=== PATIENT | male | born 1975 | race Native Hawaiian/Other Pacific Islander ===

== ENCOUNTER 2025-03-12 10:59 | Outpatient (AMB) | payer OTHER, MEDICAID, SELFPAY ==
--- NOTE | 2025-03-12 11:01 | A.OFFPC_ITS ---
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 to establish care Chiller Technician Required: No Allergies No Known Allergies (No Known Allergies*) Allergy (Verified 03/12/25 11:25) Medication List - Last Reconciled 03/12/25 by Migdalia Dorantes, [facility]- albuterol sulfate 90 mcg/actuation (Ventolin HFA) inhalation blood sugar diagnostic (Solar Censusuch Ultra Test strips) As directed blood-glucose meter (Solar Censusuch Ultra2 Meter) As directed famotidine 20 mg PO DAILY insulin aspart U-100 subcut insulin glargine-yfgn (Semglee (insulin glargine-yfgn) Pen) 19 units subcut DIRECTED lancets (RelayRidesTouch Delica Plus Lancet) As directed lisinopril 5 mg PO DAILY pen needle, diabetic As directed Tobacco use date assessed: 03/12/25 Dental Screening Dental Screen Date: 03/12/25 Did you have a dental visit in the last 12 months?: No Did you have a dental problem in the last 6 months where you did not have access to dental care?: No Was dental information given to patient?: Yes HPI HPI Comments History of Present Illness Details 49 y/o M with DM2 with complication, Cys tic Fibrosis, GERD, HTN, anemia, hypoalbuminemia, pancreatitis, hx of pna 10/2024 requiring intubation, Bacteremia (MSSA 10/2024), Obesity, MAC Surgery: R shoulder surgery Family hx: Mom and Dad ; Mom AK,DM; Dad etoh, DM. Children - none. Social: disabled; lives w/ brother. Drives. Health Maintenance: Colon referral to [facility] [place] today for first screening colon PSA ordered today Tdap admin today Specialists: Infectious disease, next visit 03/24/25 Pulm, CF [facility] Optho wears glasses, [facility]; 12/2024 reports negative retinopathy GI Podiatry Endo History of Present Illness - The patient is a 49-year-old male pres enting to establish care for management of multiple chronic conditions & for CPE - Records rec'd and reviewed from [facility] where he stayed after hospital admission in October 2024 for Hypoxia with intubation, pancreatitis and MSSA bacteremia. - Type 2 [facility]; managed with insulin. A1c today 6.5% Reports DM Eye exam negative 12/2024 - report requested; c/o severe peripheral neuropathy pain affecting BLE. - Cystic Fibrosis and MAC infection; sharan iting CF clinic referral; has appt w/ [facility] ID 03/24/25 . - GERD managed with famotidine. - Well-controlled hypertension on lisino pril. - History of pancreatitis, occassional R UQ pain. Due for colon. Will refer to GI for this. - Rash noted in strong area; - CF-related symptoms managed with Jonny emerson, no other current medications. - Obesity (BMI 34.3); affecting overall health. - Chronic back pain; rec'd inj in the [facility] from [facility]. Back cont to bother him, would like to see [facility] again. Social History - The patient lives with his brother and reports feeling safe at home. 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 - Drives independently despite condition -related limitations. - Current non-smoker, no alcohol or subs tance misuse reported. Health Maintenance - Colonoscopy referral planned as patien t is 49, past screening due. - Received tetanus vaccination during e visit. - Flu shot discussed, deferred until flu season towards the end of March. - Blood glucose management discussed wit h mention of better control (A1C improved to 6.5). - Potential need for diabetic socks was discussed in response to neuropathy. Review of Systems - Respiratory: Reports cough with white mucus production. - Neurological: Reports pain and tinglin g in feet; denies dizziness, manageable with massage. - Dermatological: Reports rash in the be tato area. - Musculoskeletal: Denies recent surgery except for shoulder procedure. - Cardiovascular: Reports irregularities in blood glucose levels. - Gastrointestinal: Reports GERD, no rec ent exacerbations. Physical Exam General: Well developed, well nourished, in no acute distress. Appears stated age. Head: Normocephalic, atraumatic. Eyes: Pupils are equal, round and reactive to light and accommodation. Conjunctivae are clear. Vision grossly normal. Ears: TMs clear AU, EACS WNL Nose: Patent, without discharge. Neck: Supple, no adenopathy or thyromegaly. Reports slight pain on swallowing. Breast: Edu on SBE Lungs: Dim throughout with ins/exp wheezes, occasional cough w/o distress Heart: Regular rate and rhythm. No murmurs, click, rubs or gallops are noted. Abdomen: Bowel sounds present in all quadrants. The abdomen is soft, nontender, with no masses or organomegaly noted. No hernias are noted. : Deferred. Reviewed VALARIE & recommendations Pulses: Peripheral pulses are equal and palpable bilaterally. Extremities: No clubbing, cyanosis nor edema is noted. Chronic vascular staining to ble, skin intact; abnormal monofilament and vibratory sensation bilat Neurologic: Gait and station normal. Cranial Nerves 2-12 intact. Motor strength grossly symmetrical and intact. No sensory loss. Balance normal. Skin: No rashes, ulcers, or lesions noted. Turgor is good. Skin color is good. Hair and nails are without abnormalities. Reports rash in strong area. Psych: Normal eye contact, affect and mood appropriate, and normal interactions. Patient is alert and appropriate to context. Results - Labs: Hemoglobin A1c recorded at 6.5; past readings over 10. - Tests: No diabetic retinopathy found p er recent eye examination. Discussion Notes During today's consultation, I discussed the multifaceted nature of the patient's ongoing health concerns, focusing on the management of chronic conditions including diabetes, cystic fibrosis, GERD, and hypertension. Emphasis was placed on improving diabetes control with an A1c goal of 6.0 or lower; start neuropathy management with oral gabapentin. The need for a colonoscopy was reviewed, given the patient's age and previous lack of screening. New referral [facility] for CF mgmt; continuation of infectious disease follow-up were also addressed. I provided anticipatory guidance regarding vaccinations and confirmed today's tetanus shot administration. The patient was encouraged to engage with the patient portal for efficient communication and better management of future healthcare interactions. Assessment and Plan 1. Type 2 Diabetes Mellitus with Complic ations - Monitor insulin response. - Refer for endocrinology review. - get dm eye exam report - refer to podiatry for diabetic foot ca re 2. Cystic Fibrosis - Referral to [facility] today - Maintain current management plan. 3. Gastroesophageal Reflux Disease (GERD ) - Continue famotidine. 4. Essential Hypertension - Continue lisinopril. 5. Rash in Strong Area, likely kevin. derm. - Prescribe ketazonaole shampoo . 6. Peripheral Neuropathy Ble - Start gabapentin 300mg QHs - Evaluate diabetic socks/shoes availabi lity. Message sent to nurses to see if insurance will cover; if not pt will buy otc. 7. Obesity - Dietary and activity counseling. 8. Health Maintenance - Tetanus given. - Plan colonoscopy. 9. History of Pneumonia, Bacteremia, MA C - Infectious disease follow-up. 10. chronic back pain - Pain management consultation with [facility] today Patient Instructions - Continue taking insulin and other pres cribed medications as directed. - Follow up with the CF clinic as soon a s you get an appointment. - Use the shampoo for the rash on your f amrita as prescribed, and watch for any changes. - Wear diabetic socks if you can get the m - Schedule and complete a colonoscopy as soon as possible. - tdap today - Use the patient portal daniel for communi cation and follow-up appointment scheduling. - Look into a consultation with a diabet es specialist for improved diabetes management. - Return for routine eye examinations to monitor for any potential issues related to diabetes. - several referal placed today; please f u RTO 4 mo routine fu sooner PRN Consent Patient was informed and verbally consented to the use of an ambient scribe for clinic note documentation during this visit. An additional 60 minutes was spent addressing the problem(s) noted at todays visit. This includes time spent before the visit reviewing the chart, time spent during the visit, and time spent after the visit on documentation reviewing laboratory results, diagnostic imaging, medications, performing a medically necessary evaluation, counseling on diagnoses, care coordination, ordering appropriate tests, ordering appropriate medications, review of tests performed by other providers, reporting test results with the patient, communication with other healthcare providers. [facility] Medical History (Updated 03/12/25 @ 12:11 by [facility] Arthritis Diabetes Pneumonia Respiratory failure (~10/2024) Surgical History (Updated 03/12/25 @ 11:28 by Helga Andujar MA) H/O shoulder surgery Family History (Updated 03/12/25 @ 11:27 by Helga Andujar MA) Mother Asthma HTN (hypertension) High cholesterol Diabetes Father Asthma HTN (hypertension) High cholesterol Diabetes Substance abuse Social History (Updated 03/12/25 @ 11:09 by Helga Andujar MA) Household Members: Other Household Members Other:: brother Both parents involved: No Caregiver staying overnight: No Housing: House Are you a primary customer care professional to a significant other at home: No Do you presently have visiting nurse or other home services: No 75 years or older and lives alone: No Alcohol intake: current Alcohol intake frequency: a few times a month Patient Tobacco Use Status: Never used Tobacco e-Cigarette/Vaping Use: Never Used Second Hand Smoke Exposure: No Substance Use Type: Marijuana Current occupational status: unemployed Cognitive needs: No Hearing needs: No Vision needs: Yes (wear galsses) Questionnaire PHQ-9 Over the last 2 weeks, how often have you been bothered by any of the following problems? 1. Little interest or pleasure in doing things: not at all 2. Feeling down, depressed, or hopeless: not at all 3. Trouble falling or staying asleep, or sleeping too much: not at all 4. Feeling tired or having little energy: not at all 5. Poor appetite or overeating: not at all 6. Feeling bad about yourself - or that you are a failure or have let yourself or your family down: not at all 7. Trouble concentrating on things, such as reading the newspaper or watching television: not at all 8. Moving or speaking so slowly that other people could have noticed. Or the opposite - being so fidgety or restless that you have been moving around a lot more than usual: not at all 9. Thoughts that you would be better off or of hurting yourself in some way: not at all Total score: 0 Depression Screening Interpretation: Negative Depression Screening Done: Yes 88658 - PHQ-9 Billing: Yes Source: Developed by Drs. Wang Krishnan, Kiarra Maher, Geraldo Lundberg and colleagues, with an educational mir from [employer]. Thrive Questionnaire Date Thrive assessed: 03/12/25 I am a: Patient What is your living situation today?: I have a steady place to live Within the past 12 months, did the food you bought not last and you didn't have the money to get more?: Sometimes True Within the past 12 months, did you worry whether your food would run out before you got money to buy more?: Never true Do you have trouble paying for medicines?: No Do you have trouble getting transportation to medical appointments?: No Do you have trouble paying your heating and electricity bill?: No Do you have trouble taking care of your child, family member or friend?: No Do you have trouble with day-to-day activities such as bathing, preparing meals, shopping, managing finances, etc.?: No Are you currently unemployed and looking for a job?: Yes Are you interested in more education?: No Please select the resources that you would like help with: None Currently or been in a relationship where the following occur: No concerns reported THRIVE Score: 1 AUDIT C Alcohol Use Questionnaire (AUDIT-C) 1. How often do you have a drink containing alcohol?: 2-4 times a month 2. How many drinks containing alcohol do you have on a typical day when you are drinking?: 7 to 9 3. How often do you have six or more drinks on one occasion?: Monthly Total Score: 7 Score Reviewed/Action Taken: Yes SHERRY-7 AMB Questionnaire SHERRY-7 Date SHERRY - 7 assessed: 03/12/25 Feeling nervous, anxious, or on edge: 0 = Not at all Not being able to stop or control worryin = Not at all Worrying too much about different things: 0 = Not at all Trouble relaxin = Not at all Being so restless that it is hard to sit still: 0 = Not at all Becoming easily annoyed or irritable: 0 = Not at all Feeling afraid as if something awful might happen: 0 = Not at all Total SHERRY-7 score (0-4 normal; 5-9 mild; 10-14 moderate; 15-21 severe): 0 Source: Developed by Drs. Wang Krishnan, Kiarra Maher, Geraldo Lundberg and colleagues, with an educational mir from [employer]. SHERRY-7 Assessment Billing SHERRY-7 Assessment Tool: SHERRY-7 Assessment 83938 ACT Questionnaire In the past 4 weeks, how much of the time did your asthma keep you from getting as much done at work, school or at home?: None of the time During the past 4 weeks, how often have you had shortness of breath?: Not at all During the past 4 weeks, how often did your asthma symptoms wake you up at night or earlier than usual in the morning?: Not at all During the past 4 weeks, how often have you had to use your rescue inhaler or nebulizer medication?: Not at all How would you rate your asthma control during the past 4 weeks?: Completely controlled ACT Interpretation: Negative Score: 25 Physical exam (Primary Care) Vital Signs: Last Vital Signs Temp 96.9 F 03/12/25 11:09 Pulse 82 03/12/25 11:09 Resp 13 03/12/25 11:09 BP 138/78 03/12/25 11:44 Pulse Ox 99 03/12/25 11:09 Oxygen Delivery Method Room Air 03/12/25 11:09 BMI result Body Mass Index 34.3 BMI Assessment/Plan discussion: High BMI High, discussed plan: lifestyle Tobacco/Smoking Status: Tobacco use Status Tobacco use date assessed 03/12/25 03/12/25 11:12 Patient Tobacco Use Status Never used Tobacco 03/12/25 11:20 e-Cigarette/Vaping Use Never Used 03/12/25 11:20 PHQ-9: PHQ-9 Score PHQ-9: Total score 0 03/12/25 11:28 Depression Screening Interpretation: Negative Thrive Assessment: Date of Thrive Assessment Date Thrive assessed 03/12/25 03/12/25 11:12 Currently or been in a relationship where the following occur: No concerns reported Office Procedures Diabetic Foot Exam Details: abnormal monofilament and vibratory sensations bilat G9226 - Diabetic Foot Exam Results AMB Hemoglobin A1c AMB Hemoglobin A1c 6.5 % Last Edit by Helga Andujar MA on 03/12/25 11:23 Results Reviewed Results Reviewed: Laboratory Last Values Hgb A1c (Clinic) 6.5 % (4.0-6.0) H 03/12/25 11:17 Coding Level of Care Code New Pt Level 5 (76938) New Pt Prev Care 40-64y(76165) Diagnoses Encounter to establish care Z76.89 Obesity (BMI 30-39.9) E66.9 Diabetes mellitus with complication E11.8 History of pneumonia Z87.01 History of endotracheal intubation Z98.890 History of pancreatitis Z87.19 History of bacteremia Z87.898 Cystic fibrosis E84.9 Mild protein-calorie malnutrition E44.1 Protein-calorie malnutrition severity: mild Physician orders for life-sustaining treatment (POLST) form indicates patient wish for full code resuscitation status Z78.9 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 Need for Tdap vaccination Z23 Chronic bilateral low back pain with bilateral sciatica M54.42; M54.41; G89.29 Back pain location: low back pain Back pain laterality: bilateral Sciatica laterality: bilateral sciatica Sciatica presence: with sciatica Peripheral sensory neuropathy due to type 2 diabetes mellitus E11.42 Encounter for general adult medical examination with abnormal findings Z00.01 CPT Codes Diabetic Foot Exam - CPT: G9226 - Diabetic Foot Exam ([id number]) Additional Codes SHERRY-7 Assessment Billing - SHERRY-7 Assessment Tool: SHERRY-7 Assessment 67500 ([id number]) PHQ-9 - 60340 - PHQ-9 Billing: Yes ([id number]) Asthma Control Questionnaire - ACT Interpretation: Negative ([id number]) Assessment & Plan Assessment & Plan (1) Encounter to establish care: Code(s): Z76.89 - Persons encountering health services in other specified circumstances (2) Obesity (BMI 30-39.9): Code(s): E66.9 - Obesity, unspecified Category: Medical (3) Diabetes mellitus with complication: Comment: peripheral neuropathy and HTN Code(s): E11.8 - Type 2 diabetes mellitus with unspecified complications Category: Medical (4) History of pneumonia: Onset Date: ~10/2024 Code(s): Z87.01 - Personal history of pneumonia (recurrent) Category: Medical (5) History of endotracheal intubation: Onset Date: ~10/2024 Code(s): Z98.890 - Other specified postprocedural states Category: Surgical (6) History of pancreatitis: Onset Date: ~10/2024 Code(s): Z87.19 - Personal history of other diseases of the digestive system Category: Medical (7) History of bacteremia: Onset Date: ~10/2024 Comment: MSSA Code(s): Z87.898 - Personal history of other specified conditions Category: Medical (8) Cystic fibrosis: Code(s): E84.9 - Cystic fibrosis, unspecified Category: Medical (9) Protein calorie malnutrition: Comment: ALBUMIN LOW 10/2024 Code(s): E46 - Unspecified protein-calorie malnutrition Category: Medical Qualifiers: Protein-calorie malnutrition severity: mild Qualified Code(s): E44.1 - Mild protein-calorie malnutrition (10) Physician orders for life-sustaining treatment (POLST) form indicates patient wish for full code resuscitation status: Onset Date: ~10/2024 Comment: MOLST ON FILE Code(s): Z78.9 - Other specified health status Category: Medical (11) Mycobacterium avium complex: Comment: ACTIVE W/ [place] ID. Code(s): A31.0 - Pulmonary mycobacterial infection Category: Medical (12) Need for Tdap vaccination: Onset Date: ~03/12/25 Code(s): Z23 - Encounter for immunization Category: Medical (13) Chronic back pain: Comment: [facility] REFERR[facility] Code(s): M54.9 - Dorsalgia, unspecified; G89.29 - Other chronic pain Category: Medical Qualifiers: Back pain location: low back pain Back pain laterality: bilateral Sciatica laterality: bilateral sciatica Sciatica presence: with sciatica Qualified Code(s): M54.42 - Lumbago with sciatica, left side; M54.41 - Lumbago with sciatica, right side; G89.29 - Other chronic pain (14) 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 Orders: Orders AMB Hemoglobin A1c Today Z13.9 - Encounter for screening, unspecified Prostate Specific Antigen Scr Today E11.8 - Type 2 diabetes mellitus with unspecified complications, E46 - Unspecified protein-calorie malnutrition Complete Blood Count no Diff Today E11.8 - Type 2 diabetes mellitus with unspecified complications, E46 - Unspecified protein-calorie malnutrition Microalbumin, Random (w Creat) Today E11.8 - Type 2 diabetes mellitus with unspecified complications, E46 - Unspecified protein-calorie malnutrition Lipid Panel Today E11.8 - Type 2 diabetes mellitus with unspecified complicatio ns, E46 - Unspecified protein-calorie malnutrition IRON PROFILE Today E11.8 - Type 2 diabetes mellitus with unspecified complications, E46 - Unspecified protein-calorie malnutrition TSH reflex Free T4 Today E11.8 - Type 2 diabetes mellitus with unspecified complications, E46 - Unspecified protein-calorie malnutrition Vitamin B12 and Folate Today E11.8 - Type 2 diabetes mellitus with unspecified complications, E46 - Unspecified protein-calorie malnutrition TDaP Immunization Today Z23 - Encounter for immunization Vitamin D 25-OH Total Today E11.8 - Type 2 diabetes mellitus with unspecified complications, E46 - Unspecified protein-calorie malnutrition Referrals Pulmonology Referral E84.9 - Cystic fibrosis, unspecified Infectious Disease Referral A31.0 - Pulmonary mycobacterial infection Pain Management Referral G89.29 - Other chronic pain, M54.9 - Dorsalgia, unspecified Podiatry Referral E11.42 - Type 2 diabetes mellitus with diabetic polyneuropathy, E11.8 - Type 2 diabetes mellitus with unspecified complications Endocrinology Referral E11.42 - Type 2 diabetes mellitus with diabetic polyneuropathy, E11.8 - Type 2 diabetes mellitus with unspecified complications Gastroenterology Referral Z12.11 - Encounter for screening for malignant neoplasm of colon, Z87.19 - Personal history of other diseases of the digestive system Medications: New gabapentin 300 mg PO BEDTIME 90 caps 0RF ketoconazole 2% apply to strong 1 appl topical 3XW 120 mL 2RF Patient Instructions: Walk-In Care (Urgent Care): We Make it Easy Walk-in for urgent medical issues such as: ? Seasonal Allergies ? Insect Bites ? Cough ? Diarrhea ? Acute Asthma Attacks ? Back, Knee or Joint Pain ? Ear Infection ? Fever without a Rash ? Headaches ? Nausea ? Trail Side Eye, Rash or Skin Irritation ? Sore Throat ? Sports Physicals ? Vomiting Most insurances are accepted. Patients do not need to be part of the [facility] to seek care at the walk-in clinic. Locations [facility] [address], [place] [address] ? [phone] [facility] [place] Walk-In Care in [place] provides services to ages 18 and over. Open Saturday-Saturday: 8 a.m. to 5 p.m. and Saturday: 9 a.m. to 3 p.m.* *Hours may vary due to staffing availability. To confirm Walk-In Care hours in [place], please call [phone]. [address] [facility], [place] [address] ? [phone] [facility] [place] Walk-In Care in [place] provides services to ages 12 and over. Open Saturday-Saturday: 8 a.m. to 5 p.m. Hours may vary due to staffing availability. To confirm Walk-In Care hours in [place], please call [phone]. LABORATORY SERVICES: [facility] [place] [place] Lab ? Primary Location [address] [place] [address] Saturday through Saturday 6:00 AM ? 5:00 PM Saturday 7:00 AM ? 11:00 AM* [phone] The [facility] [place] Lab is centrally located near the front entrance of the [facility] for easy outpatient access. Convenient parking is provided for outpatients. *Hours may vary due to staffing availability. To confirm Laboratory hours for any location, please call [phone]. Offsite Location For your convenience, we offer offsite laboratory draw stations at the following locations: [address] [place] [address] ? [address], [address] [place] [address] Saturday through Saturday 7:30 AM ? 1:00 PM* [phone] *Hours may vary due to staffing availability. To confirm Laboratory hours for any location, please call [phone]. [place] ? [address] Saturday through Saturday 6:00 AM ? 3:30 PM* Saturday 6:30 AM ? 3 PM* [phone] *Hours may vary due to staffing availability. To confirm Laboratory hours for any location, please call [phone] [place] [address] Saturday through Saturday 7:30 AM ? 4:00 PM* [phone] *Hours may vary due to staffing availability. To confirm Laboratory hours for any location, please call [phone] [place] [address] Saturday through 9:00 AM ? 4:00 PM* *Hours may vary due to staffing availability. To confirm Laboratory hours for any location, please call [phone]. Appointments are not necessary. Walk-ins are welcome. Like all the departments throughout the [facility], our Lab undergoes frequent reviews to ensure the quality and accuracy of test results, and our staff takes special pride in its status as a nationally accredited facility. Patient Portal: ONE PATIENT. ONE RECORD. BETTER CARE. [facility] has a fully integrated, cutting- edge mobile electronic health information system that has revolutionized the way we care for our patients and manage our organization. This system improves communication and coordination enabling us to provide safe, higher-quality care, and an overall positive experience for staff and patients. Our first priority, as always, is to deliver the highest quality care possible. The system is running in the background supporting that priority. This portal is for all [facility] services and practices. If you are experiencing any technical difficulties with enrolling or logging into the Patient Portal please complete the [facility] [place] Patient Portal Technical Support Form. [facility] now offers a new secure on-line interactive tool for patients to review their health information ? ?Patient Portal. This interactive web portal will enable patients and their families to take an active role in their care by providing easy, secure access to their health information via the internet. The Patient Portal provides patients with instant access to their health information, including laboratory results, medications, allergies, demographic information, visit history, and more. In addition to managing their own care, parents and health care proxies with authorized consent will appreciate the ability to access the records of those individuals for whom they provide care. Please note: if you wish to gain access (Proxy) to another patient?s portal, you will be required to come to the Medical Records Department in person at [facility]. Both the patient giving proxy access and the proxy will need to provide photo identification and complete the appropriate authorization. The Patient Portal also allows track their appointments online. The [facility] [place] Patient Portal also saves patients time by allowing them to submit updates to their demographic and contact information prior to their visits. Portal email notifications will also alert patients to any new activity on their portal, such as test results and new appointments. In order to initially enroll in the [facility] [place] Patient Portal, you will need to enter some required information including the following: * your [facility] [place] Medical Record number * your personal home email address * name * date of Please note: In order to enroll in the [facility] [place] Patient Portal, we need to have your email address on file in your electronic medical record. ?The email address needs to be specific for one person (yourself) in order for your Portal enrollment to be successful. ?You can update your email address in person with our Registration staff when you are registering for a hospital visit. ?Otherwise, you will need to come to the Health Information Management (Medical Records) Department at [facility]. ?We are open from Saturday ? Saturday from 7:30 a.m. ? 4:30 p.m. ?You will be required to present a photo id. Once you have successfully enrolled in the Patient Portal, you will receive a one-time user id and password for the Portal, sent to your email address. ?This will allow you to log into the Patient Portal within 99 hrs and reset your own logon id and password, and define personal security questions. ?Once your permanent login and password have been set, you can log into the [facility] [place] Patient Portal at any time via the blue button above or from the Portal Logon button on any page of the [facility] website. [facility] and [facility] encourage all of our patients to enroll in Patient Portal as it presents a valuable opportunity for patients and their families to actively participate in their care and stay healthy Welcome to [facility]. ?We look forward to working with you. HEALTH SCREENINGS FOR MEN YOU SHOULD VISIT YOUR HEALTH CARE PROVIDER REGULARLY, EVEN IF YOU FEEL HEALTHY. THE PURPOSE OF THESE VISITS IS TO: SCREEN FOR MEDICAL ISSUES ASSESS YOUR RISK FOR FUTURE MEDICAL PROBLEMS ENCOURAGE A HEALTHY LIFESTYLE UPDATE VACCINATIONS AND OTHER PREVENTIVE CARE SERVICES HELP YOU GET TO KNOW YOUR PROVIDER IN CASE OF AN ILLNESS INFORMATION EVEN IF YOU FEEL FINE, YOU SHOULD STILL SEE YOUR PROVIDER FOR REGULAR CHECKUPS. THESE VISITS CAN HELP YOU AVOID PROBLEMS IN THE FUTURE. FOR EXAMPLE, THE ONLY WAY TO FIND OUT IF YOU HAVE HIGH BLOOD PRESSURE IS TO HAVE IT CHECKED REGULARLY. HIGH BLOOD SUGAR AND HIGH CHOLESTEROL LEVEL ALSO MAY NOT HAVE ANY SYMPTOMS IN THE EARLY STAGES. SIMPLE BLOOD TESTS CAN CHECK FOR THESE CONDITIONS. THERE ARE SPECIFIC TIMES WHEN YOU SHOULD SEE YOUR PROVIDER OR RECEIVE SPECIFIC HEALTH SCREENINGS. THE [employer] PUBLISHES A LIST OF RECOMMENDED SCREENINGS. BELOW ARE SCREENING GUIDELINES FOR MEN AGES 40 TO 64. BLOOD PRESSURE SCREENING HAVE YOUR BLOOD PRESSURE CHECKED AT LEAST ONCE EVERY YEAR. WATCH FOR BLOOD PRESSURE SCREENINGS IN YOUR AREA. ASK YOUR PROVIDER IF YOU CAN STOP IN TO HAVE YOUR BLOOD PRESSURE CHECKED. ASK YOUR PROVIDER IF YOU NEED YOUR BLOOD PRESSURE CHECKED MORE OFTEN IF: YOU HAVE DIABETES, HEART DISEASE, KIDNEY PROBLEMS, OR ARE OVERWEIGHT OR HAVE CERTAIN OTHER HEALTH CONDITIONS YOU HAVE A FIRST-DEGREE RELATIVE WITH HIGH BLOOD PRESSURE YOU ARE BLACK YOUR BLOOD PRESSURE TOP NUMBER IS FROM 120 TO 129 MM HG, OR THE BOTTOM NUMBER IS FROM 70 TO 79 MM HG IF THE TOP NUMBER IS 130 MM HG OR GREATER OR THE BOTTOM NUMBER IS 80 MM HG OR GREATER, THIS IS CONSIDERED STAGE 1 HYPERTENSION. SCHEDULE AN APPOINTMENT WITH YOUR PROVIDER TO LEARN HOW YOU CAN LOWER YOUR BLOOD PRESSURE. EFFECTS OF AGE ON BLOOD PRESSURE CHOLESTEROL SCREENING CHOLESTEROL SCREENING SHOULD BEGIN AT AGE 35 FOR MEN WITH NO KNOWN RISK FACTORS FOR CORONARY HEART DISEASE. REPEAT CHOLESTEROL SCREENING SHOULD TAKE PLACE: EVERY 5 YEARS FOR MEN WITH NORMAL CHOLESTEROL LEVELS MORE OFTEN IF CHANGES OCCUR IN LIFESTYLE (INCLUDING WEIGHT GAIN AND DIET) MORE OFTEN IF YOU HAVE DIABETES, HEART DISEASE, KIDNEY PROBLEMS, OR CERTAIN OTHER CONDITIONS COLORECTAL CANCER SCREENING IF YOU ARE UNDER AGE 45, TALK TO YOUR PROVIDER ABOUT GETTING SCREENED. YOU MAY NEED TO BE SCREENED IF YOU HAVE A STRONG FAMILY HISTORY OF COLON CANCER OR POLYPS. SCREENING MAY ALSO BE CONSIDERED IF YOU HAVE RISK FACTORS SUCH A HISTORY OF INFLAMMATORY BOWEL DISEASE OR POLYPS. IF YOU ARE AGE 45 TO 75, YOU SHOULD BE SCREENED FOR COLORECTAL CANCER. THERE ARE SEVERAL SCREENING TESTS AVAILABLE: A STOOL-BASED FECAL OCCULT BLOOD (GFOBT) OR FECAL IMMUNOCHEMICAL TEST (FIT) EVERY YEAR A STOOL SDNA TEST EVERY 1 TO 3 YEARS FLEXIBLE SIGMOIDOSCOPY EVERY 5 YEARS OR EVERY 10 YEARS WITH STOOL TESTING FIT DONE EVERY YEAR CT COLONOGRAPHY (VIRTUAL COLONOSCOPY) EVERY 5 YEARS COLONOSCOPY EVERY 10 YEARS YOU MAY NEED A COLONOSCOPY MORE OFTEN IF YOU HAVE RISK FACTORS FOR COLORECTAL CANCER, SUCH : ULCERATIVE COLITIS A PERSONAL OR FAMILY HISTORY OF COLORECTAL CANCER A HISTORY OF GROWTHS IN YOUR COLON CALLED ADENOMATOUS POLYPS DENTAL EXAM GO TO THE DENTIST ONCE OR TWICE EVERY YEAR FOR AN EXAM AND CLEANING. YOUR DENTIST WILL EVALUATE IF YOU HAVE A NEED FOR MORE FREQUENT VISITS. DIABETES SCREENING ALL ADULTS WHO DO NOT HAVE RISK FACTORS FOR DIABETES SHOULD BE SCREENED STARTING AT AGE 35 AND REPEATED EVERY 3 YEARS. IF YOU HAVE OTHER RISK FACTORS FOR DIABETES, SUCH A FIRST DEGREE RELATIVE WITH DIABETES, OVERWEIGHT OR OBESITY, HIGH BLOOD PRESSURE, PREDIABETES, OR A HISTORY OF HEART DISEASE, YOU MAY BE TESTED MORE OFTEN. IF YOU ARE OVERWEIGHT AND HAVE OTHER RISK FACTORS, SUCH HIGH BLOOD PRESSURE AND ARE PLANNING TO BECOME , SCREENING IS RECOMMENDED. EYE EXAM HAVE AN EYE EXAM EVERY 2 TO 4 YEARS AGES 40 TO 54 AND EVERY 1 TO 3 YEARS AGES 55 TO 64. YOUR PROVIDER MAY RECOMMEND MORE FREQUENT EYE EXAMS IF YOU HAVE VISION PROBLEMS OR GLAUCOMA RISK. HAVE AN EYE EXAM THAT INCLUDES AN EXAMINATION OF YOUR RETINA (BACK OF YOUR EYE) AT LEAST EVERY YEAR IF YOU HAVE DIABETES. IMMUNIZATIONS COMMONLY NEEDED VACCINES INCLUDE: FLU SHOT: GET ONE EVERY YEAR COVID-19 VACCINE: ASK YOUR PROVIDER WHAT IS BEST FOR YOU TETANUS-DIPHTHERIA AND ACELLULAR PERTUSSIS (TDAP) VACCINE: HAVE ONE OF YOUR TETANUS-DIPHTHERIA VACCINES IF YOU DID NOT RECEIVE IT AN ADOLESCENT TETANUS-DIPHTHERIA: HAVE A BOOSTER (OR TDAP) EVERY 10 YEARS VARICELLA VACCINE: RECEIVE 2 DOSES IF YOU NEVER HAD CHICKENPOX OR THE VARICELLA VACCINE AND WERE BORN IN 1978 OR AFTER HEPATITIS B VACCINE: RECEIVE 2, 3, OR 4 DOSES, DEPENDING ON YOUR EXACT CIRCUMSTANCES, IF YOU DID NOT RECEIVE THESE A CHILD OR ADOLESCENT, UNTIL AGE 59 SHINGLES (HERPES ZOSTER) VACCINE: AT OR AFTER AGE 50 ASK YOUR PROVIDER IF YOU SHOULD RECEIVE OTHER IMMUNIZATIONS, ESPECIALLY IF YOU HAVE CERTAIN MEDICAL CONDITIONS, SUCH DIABETES OR ARE AT INCREASED RISK FOR SOME DISEASES SUCH PNEUMONIA. INFECTIOUS DISEASE SCREENING SCREENING FOR HEPATITIS C: ALL ADULTS AGES 18 TO 79 SHOULD GET A ONE-TIME TEST FOR HEPATITIS C. SCREENING FOR HUMAN IMMUNODEFICIENCY VIRUS (HIV): ALL PEOPLE AGES 15 TO 65 SHOULD GET A ONE-TIME TEST FOR HIV. DEPENDING ON YOUR LIFESTYLE AND MEDICAL HISTORY, YOU MAY NEED TO BE SCREENED FOR INFECTIONS SUCH SYPHILIS, CHLAMYDIA, AND OTHER INFECTIONS. LUNG CANCER SCREENING YOU SHOULD HAVE AN ANNUAL SCREENING FOR LUNG CANCER WITH LOW-DOSE COMPUTED TOMOGRAPHY (LDCT) IF: YOU ARE AGE 50 TO 80 YEARS AND YOU HAVE A 20 PACK-YEAR SMOKING HISTORY AND YOU CURRENTLY SMOKE OR HAVE QUIT WITHIN THE PAST 15 YEARS OSTEOPOROSIS SCREENING IF YOU ARE AGE 50 TO 64 AND HAVE RISK FACTORS FOR OSTEOPOROSIS, YOU SHOULD DISCUSS SCREENING WITH YOUR PROVIDER. RISK FACTORS CAN INCLUDE LONG-TERM STEROID USE, LOW BODY WEIGHT, SMOKING, HEAVY ALCOHOL USE, HAVING A FRACTURE AFTER AGE 50, OR A FAMILY HISTORY OF HIP FRACTURE OR OSTEOPOROSIS. OSTEOPOROSIS PHYSICAL EXAM ALL ADULTS SHOULD VISIT THEIR PROVIDER FROM TIME TO TIME, EVEN IF THEY ARE HEALTHY. THE PURPOSE OF THESE VISITS IS TO: SCREEN FOR DISEASES ASSESS RISK OF FUTURE MEDICAL PROBLEMS ENCOURAGE A HEALTHY LIFESTYLE UPDATE VACCINATIONS AND OTHER PREVENTIVE CARE SERVICES MAINTAIN A RELATIONSHIP WITH A PROVIDER IN CASE OF AN ILLNESS YOUR HEIGHT, WEIGHT, AND BODY MASS INDEX (BMI) SHOULD BE CHECKED AT EVERY EXAM. DURING YOUR EXAM, YOUR PROVIDER MAY ASK YOU ABOUT: DEPRESSION AND ANXIETY DIET AND EXERCISE ALCOHOL AND TOBACCO USE SAFETY, SUCH USE OF SEAT BELTS AND SMOKE DETECTORS YOUR MEDICINES AND RISK FOR INTERACTIONS PROSTATE CANCER SCREENING IF YOU'RE 55 THROUGH 69 YEARS OLD, BEFORE HAVING THE TEST, TALK TO YOUR PROVIDER ABOUT THE PROS AND CONS OF HAVING A PSA TEST. ASK ABOUT: WHETHER SCREENING DECREASES YOUR CHANCE OF DYING FROM PROSTATE CANCER. WHETHER THERE IS ANY HARM FROM PROSTATE CANCER SCREENING, SUCH SIDE EFFECTS FROM TESTING OR OVERTREATMENT OF CANCER WHEN DISCOVERED. WHETHER YOU HAVE A HIGHER RISK OF PROSTATE CANCER THAN OTHERS. IF YOU ARE AGE 55 OR YOUNGER, SCREENING IS NOT GENERALLY RECOMMENDED. YOU SHOULD TALK WITH YOUR PROVIDER ABOUT IF YOU HAVE A HIGHER RISK FOR PROSTATE CANCER. RISK FACTORS INCLUDE: HAVING A FAMILY HISTORY OF PROSTATE CANCER (ESPECIALLY A BROTHER OR FATHER) BEING IF YOU CHOOSE TO BE TESTED, THE PSA BLOOD TEST IS REPEATED OVER TIME (YEARLY OR LESS OFTEN), THOUGH THE BEST FREQUENCY IS NOT KNOWN. PROSTATE EXAMINATIONS ARE NO LONGER ROUTINELY DONE ON MEN WITH NO SYMPTOMS. PROSTATE CANCER SKIN EXAM YOUR PROVIDER MAY CHECK YOUR SKIN FOR SIGNS OF SKIN CANCER, ESPECIALLY IF YOU'RE AT HIGH RISK. PEOPLE AT HIGH RISK INCLUDE THOSE WHO HAVE HAD SKIN CANCER BEFORE, HAVE CLOSE RELATIVES WITH SKIN CANCER, OR HAVE A WEAKENED IMMUNE SYSTEM. TESTICULAR EXAM THE [employer] ([employer]) NOW RECOMMENDS AGAINST PERFORMING TESTICULAR SELF-EXAMS. DOING TESTICULAR SELF-EXAMS HAS BEEN SHOWN TO HAVE LITTLE TO NO BENEFIT.
[2025-03-12 11:09] VITALS: BP 146/82; PULSE 82; RESP 13; TEMP 36.1; O2SAT 99; BMI 34.3
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
[2025-03-12 11:44] VITALS: BP 138/78
== END 2025-03-12 12:03 | disposition home or self-care (01) ==
LOC: HO.HMCFM 11:00
PROVIDERS: PCP Nurse Practitioner Family; Visit Provider Nurse Practitioner Family
DX: Z00.01 Encounter for general adult medical examination with abnormal findings (principal); E11.8 Type 2 diabetes mellitus with unspecified complications; E84.9 Cystic fibrosis, unspecified; E11.42 Type 2 diabetes mellitus with diabetic polyneuropathy; A31.0 Pulmonary mycobacterial infection; E66.9 Obesity, unspecified; Z76.89 Persons encountering health services in other specified circumstances; Z87.01 Personal history of pneumonia (recurrent); Z98.890 Other specified postprocedural states; Z87.19 Personal history of other diseases of the digestive system; E44.1 Mild protein-calorie malnutrition; Z23 Encounter for immunization

== ENCOUNTER → 2025-03-12 10:59 | Outpatient (BNVA) | payer OTHER, SELFPAY | PROVIDERS: PCP Nurse Practitioner Family; Visit Provider Nurse Practitioner Family | DX: Z00.01 Encounter for general adult medical examination with abnormal findings (principal); Z76.89 Persons encountering health services in other specified circumstances; Z23 Encounter for immunization; E66.9 Obesity, unspecified; E11.8 Type 2 diabetes mellitus with unspecified complications; E84.9 Cystic fibrosis, unspecified; E44.1 Mild protein-calorie malnutrition; A31.0 Pulmonary mycobacterial infection; M54.42 Lumbago with sciatica, left side; M54.41 Lumbago with sciatica, right side; G89.29 Other chronic pain; E11.42 Type 2 diabetes mellitus with diabetic polyneuropathy; Z87.01 Personal history of pneumonia (recurrent); Z87.19 Personal history of other diseases of the digestive system; Z87.898 Personal history of other specified conditions; Z78.9 Other specified health status; Z13.31 Encounter for screening for depression; Z13.39 Encounter for screening examination for other mental health and behavioral disorders | CPT/HCPCS: 83036; 90471; 90715; 96127; 96160; 99202; 99386 ==

== ENCOUNTER 2025-03-22 07:55 | Outpatient (AMB) | payer OTHER, SELFPAY ==
[2025-03-22 07:58] VITALS: BP 120/80; PULSE 86; O2SAT 96; BMI 34.5
--- NOTE | 2025-03-22 07:58 | A.OFFVIS_ITS ---
Vital Signs 03/22/25 07:58 Height 5 ft 9 in Weight 233 lb 11.04 oz BMI 34.5 BP 120/80 Blood Pressure Location Rt brachial Position Sitting Pulse 86 Pulse Source Pulse Oximeter Pulse Oximetry (%) 96 Oxygen Delivery Method Room Air Intake Visit Reasons: T2DM Intake Note: Patient present today for Type 2 Diabetes Mellitus Last Diabetic eye exam: 11/24/2024, [facility] Christopher Almonte Last Podiatry Visit: Patient does not see a Director Of Counterintelligence Random Glucose: 188 mg/dL Most Recent HgA1C: 6.5%, 03/12/2025 Seaming Inspector Required: No Accompanied by: Self / Same As Patient Allergies No Known Allergies (No Known Allergies*) Allergy (Verified 03/22/25 08:11) Medication List - Last Reconciled 03/22/25 by Barbara Robins PA-C albuterol sulfate 90 mcg/actuation (Ventolin HFA) inhalation blood sugar diagnostic (OneTouch Ultra Test strips) As directed blood-glucose meter (OneTouch Ultra2 Meter) As directed [diabetic shoes one pair with 3 sets inserts] famotidine 20 mg PO DAILY gabapentin 300 mg PO BEDTIME insulin aspart U-100 subcut insulin glargine-yfgn (Semglee (insulin glargine-yfgn) Pen) 19 units subcut DIRECTED ketoconazole 2% 1 appl topical 3XW lancets ([employer] Delica Plus Lancet) As directed lisinopril 5 mg PO DAILY pen needle, diabetic As directed HPI HPI T2DM: Details: Patient is a 49 y/o M with DM2 with complication, Cystic Fibrosis, GERD, HTN, anemia, hypoalbuminemia, pancreatitis, hx of pna 10/2024 requiring intubation, Bacteremia (MSSA 10/2024), Obesity, MAC presenting today for a diabetic consult. Endo: Was diagnosed with diabetes at his recent hospitalization. He was hospitalized in October where he was diagnosed with bacteremia caused by pneumonia. He states at that hospitalization he was intubated and in a coma. He was then also noted to have elevated sugars and that is when they started him on insulin in the hospital. He was at a rehab facility following the hospitalization and states that he had some antibiotic that caused pancreatitis. Prior to this he never had pancreatitis. He does not have any abdominal pain. Currently being managed with Semglee 19 units daily and NovoLog 4 units before meals. He states that sometimes he does not need to use any insulin and sometimes he uses as much as 6 units. He does not have a sensor. Family history of type 2 diabetes. He tells me today that he was unable to get labs the other day at his PCP's office and plans to do this this morning. He does report some numbness and tingling in the right foot. It is mostly on the plantar aspect of the lateral aspect. His PCP started him on gabapentin which is helpful. He states that it bothers him more so at bedtime. He is scheduled to see Podiatry in April. CV: Blood pressure today in the office is 120/80. He is on lisinopril 5 mg daily. He is not on any cholesterol-lowering medication [facility] Medical History Arthritis Diabetes Pneumonia Respiratory failure (~10/2024) Surgical History H/O shoulder surgery Family History Mother Asthma HTN (hypertension) High cholesterol Diabetes Father Asthma HTN (hypertension) High cholesterol Diabetes Substance abuse Social History Household Members: Other Household Members Other:: brother Housing: House Are you a primary health care facility administrator to a significant other at home: No Do you presently have visiting nurse or other home services: No Alcohol intake: current Alcohol intake frequency: a few times a month Patient Tobacco Use Status: Never used Tobacco e-Cigarette/Vaping Use: Never Used Second Hand Smoke Exposure: No Substance Use Type: Marijuana Current occupational status: unemployed Cognitive needs: No Hearing needs: No Vision needs: Yes (wear galsses) Physical Exam Vital Signs: Last Vital Signs Pulse 86 03/22/25 07:58 BP 120/80 03/22/25 07:58 Pulse Ox 96 03/22/25 07:58 Oxygen Delivery Method Room Air 03/22/25 07:58 Const Orientation/consciousness: patient oriented x3 Neck Neck: Yes no lymphadenopathy Thyroid: Thyroid normal Carotids: no bruits Resp Auscultation: clear to auscultation bilaterally Cardio Rate: regular rate Rhythm: regular rhythm Heart sounds: S1 normal heart sound present and S2 normal heart sound present Peripheral pulses: dorsalis pedis present Neuro General: patient oriented x3, gait normal and no focal motor deficits Extrem Other: Monofilament sensation present on the dorsum of the right foot but absent on the plantar aspect. Monofilament sensation intact on the left. Vibratory sensation intact bilaterally. Skin intact. General: Yes normal to inspection Assessment & Plan Assessment & Plan (1) Diabetes mellitus with complication: Comment: peripheral neuropathy and HTN Code(s): E11.8 - Type 2 diabetes mellitus with unspecified complications Category: Medical Plan: we spent approximately 65 min in face to face time today reviewing the pathophysiology of diabetes, the differences between t1dm and t2dm and complications associated with diabetes including but not limited to kidney disease, blindness, increased risk of OH/CVA, neuropathy, infections etc. dm labs ordered. he will complete today I have refilled insulin treatment (no changes today) I downloaded [email or web address] daniel today on his phone with him, reviewed how to use and gave him a sensor (I applied for him and demonstrated use) Sensors ordered He has back up testing supplies We reviewed signs and symptoms of hyper and hypoglycemia that would require emergent medical treatment Glucose tabs and glucagon spray ordered Short term follow up. (2) Insulin long-term use: Code(s): Z79.4 - FPC (current) use of insulin Category: Medical Plan: as above sensor ordered (3) HTN (hypertension): Code(s): I10 - Essential (primary) hypertension Category: Medical Plan: WNL. Continue current regimen Orders: Orders Glutamic acid decarboxylase Ab Today E11.8 - Type 2 diabetes mellitus with unspecified complications, Z79.4 - FPC (current) use of insulin Islet Cell Antibody Scrn/Titer Today E11.8 - Type 2 diabetes mellitus with unspecified complications, Z79.4 - assistant terminal manager (current) use of insulin C Peptide Today E11.8 - Type 2 diabetes mellitus with unspecified complications, Z79.4 - FPC (current) use of insulin Medications: New blood-glucose sensor (FreeStyle Bogdan 3 Plus Sensor device) Use daily As directed to monitor glucose 2 ea 5RF E08.29 - Diabetes mellitus due to underlying condition with other diabetic kidney complication, R80.9 - Proteinuria, unspecified, Z79.4 - assistant terminal manager (current) use of insulin glucose (Dex4 Glucose) until symptoms of low blood sugar are controlled 16 grams (4 x 4 gram) PO Q15M PRN 100 tabs 0RF hypoglycemia glucagon 3 mg/actuation 3 mg intranasal ONCE PRN 1 ea 1RF hypoglycemia Changed From insulin aspart U-100 subcut To insulin aspart U-100 4 units (0.04 mL) subcut TID 15 mL 3RF From insulin glargine-yfgn (Semglee (insulin glargine-yfgn) Pen) 19 units subcut DIRECTED To insulin glargine-yfgn (Semglee (insulin glargine-yfgn) Pen) 18 units subcut DIRECTED Coding Level of Care Code New Pt Level 5 (05663) Complex EM visit Add On G2211 Diagnoses Diabetes mellitus with complication E11.8 Insulin long-term use Z79.4 HTN (hypertension) I10
--- OUTSIDE RECORDS SUMMARY | 2025-03-22 07:58 | XMS_ITS | Clinical Summary ---
Author Organization [facility] Address [address] [place] [address] Phone Care Team Providers Care Programming Internship Name Role Phone Polo Noriega MD Primary Care Provider [phone] Allergies No known active allergies Medications insulin [...] 10/29/2024 Pancreatitis 10/28/2024 Pneumonia 10/20/2024 Cystic fibrosis ([facility] V24, [facility] V28) 10/20 Resolved Problems Problem Noted Date Diagnosed Date Resolved Date Acute kidney injury ([facility] V24) 10/24/2024 10/26/2024 Septic shock ([facility] V24, [facility] V28) 10/22/2024 10/26/2024 Acute respiratory failure wi th hypoxia ([facility] V24, [facility] V28) 10/20/2024 10/26/2024 Endotracheally intubated 10/20/202410/2024 On mechanically assisted garfield tilation ([facility] V24, [facility] V28) 10/20/2024 10/26/2024 Arterial hypotension 10/20/2024 025 Lactic acidosis 10/20/2024 10/26/2024 Encounters Date Type Department Care Team Description 01/05/2025 Telephone Infectious Disease [address] [phone] Kathy Francisco MD 12/23/2024 2:00 PM EDT Office Visit Infectious Disease [address] [phone] Kathy Francisco MD MSSA bacteremia (Primary Dx); Community acquired pneumonia, unspecified laterality; PATEL (mycobacterium avium-intracellulare) ([facility] V24, [facility] V28); Cystic fibrosis ([facility] V24, [facility] V28) from Last 3 Months Surgical History Surgery Date Site/Laterality Comments SHOULDER RT right shoulder surgery BRONCHOSCOPY Medical History Medical History Date Comments Cystic fibrosis ([facility] V24, [facility] V28) diagnosed in his 30s MSSA bacteremia Diabetes mellitus ([facility] V24, [facility] V28) Respiratory failure requirin g intubation ([facility] V24, [facility] V28) 09/2024 Family History Medical History Relation [...] PM EDT Office Visit Infectious Disease - [place] [address] [facility] [address] [place] [address] Kathy Francisco MD [address] [facility] [address] [place] [address] Health Maintenance Due Date Last Done Comments Diabetes: Annual Foot Exam 1986 Diabetes: Annual Retina Eye Exam 1986 Pneumococcal Vaccine: Pediatrics (0 to 5 Years) and At-Risk Patients (6 to 49 Years) (2 of 2 - PCV) 06/19/2009 06/19/2008 COVID-19 Vaccine (3 - season) 2024 01/20/2021, 12/23/2020 Depression Screening 08/26/2024 Cholesterol Screening (Lipid Panel) 10/20/2024 Colorectal Cancer Screening: Colonoscopy 10/20/2024 Diabetes: Annual Urine Albumin-Creatinine Ratio (uACR) [...] mmol/L LAB CHEMISTRY METHOD 10/30/2024 12:36 PM [facility] Potassium 4.1 3.5 - 5.5 mmol/L LAB CHEMISTRY METHOD 10/30/2024 12:36 PM [facility] Chloride 101 96 - 110 mmol/L LAB CHEMISTRY METHOD 10/30/2024 12:36 PM [facility] CO2 27 21 - 32 mmol/L LAB CHEMISTRY METHOD 10/30/2024 12:36 PM [facility] Anion Gap 8 3 - 11 LAB CHEMISTRY METHOD 10/30/2024 12:36 PM [facility] Glucose 188(H) 70 - 100 mg/dL LAB CHEMISTRY METHOD 10/30/2024 12:36 PM [facility] BUN 5 5 - 25 mg/dL LAB CHEMISTRY METHOD 10/30/2024 12:36 PM [facility] Creatinine 0.83 0.70 - 1.30 mg/dL LAB CHEMISTRY METHOD 10/30/2024 12:36 PM [facility] eGFR 108 >=60 mL/min/1. 73m2 LAB CHEMISTRY METHOD 10/30/2024 12:36 PM [facility] Comment:Calculation based on the Chronic Kidney Disease Epidemiology Collaboration (CKD-EPI) equation refit without adjustment for race. BUN/Creatinine Ratio 6.0 LAB CHEMISTRY METHOD 10/30/2024 12:36 PM [facility] Calcium 8.5 8.5 - 10.5 mg/dL LAB CHEMISTRY METHOD 10/30/2024 12:36 PM EST [facility] Blood Venous blood specimen / Unknown Venipuncture / Unknown 10/30/2024 11:03 AM EST 10/30/2024 11:54 AM EST us Adonay Burgos MD LAB BLOOD ORDERABLES Final Resul t Performing Organization Address City/[facility]/ZIP Co de Phone Number [facility] [address] [place] [address], [place] [phone] * (ABNORMAL) Hemoglobin A1c (10/25/2024 4:25 AM EST) Hemoglobin A1C 10.2(H) <6.5 % LAB CHEMISTRY METHOD 10/26/2024 9:40 PM EST [facility] Mean Bld Glu Estim. 246 mg/dL LAB CHEMISTRY METHOD 10/26/2024 9:40 PM EST [facility] Blood Venous blood specimen / Unknown Venipuncture / Unknown 10/25/2024 4:25 AM EST 10/25/2024 6:57 AM EST us Crystal CAPUTO LAB BLOOD ORDERABLES Final R esult Performing Organization Address [facility]/ZIP Co de Phone Number [facility] [address] [place] [address], [place] [phone] from Last 3 Months or Most Recently Relevant to Health Maintenance Insurance MEDICARE [facility] Member Subscriber Plan / Payer (Ef fective 2024-Present) Name:FILEMON BARTON Relation to Subscriber:Self Name:Filemon Barton Payer ID:[id number] Group ID:[id number] Type:Not on file Address: [address] [place] [address] Advance Directives Documents on File Type Date Recorded 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
[2025-03-22 08:10] LABS: Glucose, Whole Blood 188 mg/dL (60-115)
== END 2025-03-22 08:41 | disposition home or self-care (01) ==
LOC: HO.ENCR 07:56
PROVIDERS: PCP Nurse Practitioner Family; Visit Provider Physician Assistant
DX: E11.8 Type 2 diabetes mellitus with unspecified complications (principal); Z79.4 Long term (current) use of insulin; I10 Essential (primary) hypertension

== ENCOUNTER → 2025-03-22 07:55 | Outpatient (BNVA) | payer OTHER, SELFPAY | PROVIDERS: PCP Nurse Practitioner Family; Visit Provider Physician Assistant | DX: E11.29 Type 2 diabetes mellitus with other diabetic kidney complication (principal); E66.9 Obesity, unspecified; R80.9 Proteinuria, unspecified; Z79.4 Long term (current) use of insulin; Z68.34 Body mass index [BMI] 34.0-34.9, adult | CPT/HCPCS: 82947; 99202 ==

== ENCOUNTER 2025-03-22 08:42 | Outpatient (REF) | payer OTHER, SELFPAY ==
[2025-03-22 10:20] LABS: Hematocrit 43.5 % (42.0-52.0); Hemoglobin 14.8 g/dl (14.0-18.0); Mean Corpuscular HGB Conc 34.0 g/dl (31.0-36.0); Mean Corpuscular Hemoglobin 28.8 pg (27.0-33.0); Mean Corpuscular Volume 84.6 fL (80.0-98.0); NRBC Abs Auto 0.000 X10*3/uL (0.0-0.012); NRBC Pct Auto 0.0 /100WBC (0.0-0.2); Platelet Count 196 X10*3/uL (160-400); Red Blood Count 5.14 X10*6/uL (4.60-5.80); White Blood Count 6.7 X10*3/uL (4.8-10.8)
[2025-03-22 11:03] LABS: Cholesterol 157 mg/dL (<200); HDL Cholesterol 41 mg/dL (>40); Iron 127 mcg/dL (45-160); Percent Iron Saturation 39 % (15-50); Total Iron Binding Capacity 325 mcg/dL (228-428); Triglycerides 98 mg/dL (<150); Unsaturated Iron Binding 198 ug/dL
[2025-03-22 11:18] LABS: Folate 7.2 ng/mL (> or = 4.0); Vitamin B12 791 pg/mL (200-900)
== END 2025-03-22 08:43 | disposition home or self-care (01) ==
LOC: HO.10HDL 08:42
PROVIDERS: Physician Assistant; Visit Provider Nurse Practitioner Family
DX: Z12.5 Encounter for screening for malignant neoplasm of prostate (principal); E11.8 Type 2 diabetes mellitus with unspecified complications; E46 Unspecified protein-calorie malnutrition; Z79.4 Long term (current) use of insulin
CPT/HCPCS: 36415; 80061; 82043; 82306; 82570; 82607; 82746; 83540; 84153; 84443; 84681; 85027; 86341

== ENCOUNTER 2025-04-19 08:50 | Outpatient (AMB) | payer OTHER, SELFPAY ==
[2025-04-19 09:02] VITALS: BP 120/78; PULSE 78; O2SAT 95; BMI 35.3
--- NOTE | 2025-04-19 09:02 | A.OFFVIS_ITS ---
Vital Signs 04/19/25 09:02 Height 5 ft 9 in Weight 238 lb 12.17 oz BMI 35.3 BP 120/78 Blood Pressure Location Lt brachial Position Sitting Pulse 78 Pulse Source Pulse Oximeter Pulse Oximetry (%) 95 Oxygen Delivery Method Room Air Intake Visit Reasons: T2DM Intake Note: Patient present today for Type 2 Diabetes Mellitus Last Diabetic eye exam: 08/2024 Last Podiatry Visit: Doesn't have one Random Glucose: 219 mg/dl HgA1C: 6.5% 03/12/25 Data Entry Coordinator Required: No Accompanied by: Self / Same As Patient Allergies No Known Allergies (No Known Allergies*) Allergy (Verified 04/19/25 09:07) Medication List - Last Reconciled 04/19/25 by Barbara Robins PA-C albuterol sulfate 90 mcg/actuation (Ventolin HFA) inhalation blood sugar diagnostic ([employer] Ultra Test strips) As directed blood-glucose meter ([employer] Ultra2 Meter) As directed blood-glucose sensor ([employer] Bogdan 3 Plus Sensor device) Use daily As directed to monitor glucose cholecalciferol (vitamin D3) 50 mcg PO DAILY [diabetic shoes one pair with 3 sets inserts] famotidine 20 mg PO DAILY 30 days gabapentin 300 mg PO BEDTIME glucagon 3 mg/actuation 3 mg intranasal ONCE PRN glucose (Dex4 Glucose) 16 grams (4 x 4 gram) PO Q15M PRN insulin aspart U-100 4 units (0.04 mL) subcut TID insulin glargine-yfgn (Semglee (insulin glargine-yfgn) Pen) 18 units subcut DIRECTED ketoconazole 2% 1 appl topical 3XW lancets (Comp[employer]Touch Delica Plus Lancet) As directed lisinopril 5 mg PO DAILY 90 days pen needle, diabetic As directed HPI HPI T2DM: Details: Patient is a 49 y/o M with DM2 with complication, Cystic Fibrosis, GERD, HTN, anemia, hypoalbuminemia, pancreatitis, hx of pna 10/2024 requiring intubation, Bacteremia (MSSA 10/2024), Obesity, MAC presenting today for a diabetic consult. Endo: Recent labs showed normal C-peptide, negative antibodies. Currently being managed with Semglee 20 units daily and NovoLog 2-8 units before meals.. -using sliding scale at home for novolog and has not had any lows. He does not have a sensor. He states his insurance just approved it last week. He has not yet picked it up. Family history of type 2 diabetes. He has been attending diabetic education at [facility] and seeing a level vial inspector and tester. He is following very closely with [facility] and states that they have the hand almond blancher in the same clinic. He is scheduled to see Podiatry in April. CV: Blood pressure today in the office is 120/78. He is on lisinopril 5 mg daily. He is not on any cholesterol-lowering medication [facility] Medical History Arthritis Diabetes Pneumonia Respiratory failure (~10/2024) Surgical History H/O shoulder surgery Family History Mother Asthma HTN (hypertension) High cholesterol Diabetes Father Asthma HTN (hypertension) High cholesterol Diabetes Substance abuse Social History Household Members: Other Household Members Other:: brother Both parents involved: No Caregiver staying overnight: No Housing: House Are you a primary point of care specialist to a significant other at home: No Do you presently have visiting nurse or other home services: No 75 years or older and lives alone: No Alcohol intake: current Alcohol intake frequency: a few times a month Patient Tobacco Use Status: Never used Tobacco e-Cigarette/Vaping Use: Never Used Second Hand Smoke Exposure: No Substance Use Type: Marijuana Current occupational status: unemployed Cognitive needs: No Hearing needs: No Vision needs: Yes (wear galsses) Physical Exam Vital Signs: Last Vital Signs Pulse 78 04/19/25 09:02 BP 120/78 04/19/25 09:02 Pulse Ox 95 04/19/25 09:02 Oxygen Delivery Method Room Air 04/19/25 09:02 BMI result Body Mass Index 35.3 Const Orientation/consciousness: patient oriented x3 HEENT Ears: hearing grossly normal bilaterally Neck Thyroid: Thyroid normal Lymphatic: no lymphadenopathy noted Resp Auscultation: clear to auscultation bilaterally Cardio Rate: regular rate Rhythm: regular rhythm Heart sounds: S1 normal heart sound present and S2 normal heart sound present Skin General skin exam: no rashes or lesions noted Neuro General: patient oriented x3, gait normal and no focal motor deficits Results Reviewed Results Reviewed: Laboratory Tests 11/06/24 11/16/24 03/12/25 04:40 05:00 11:17 Sodium 143 Potassium 4.0 Chloride 109 H Carbon Dioxide 28 Creatinine 0.70 Estimated GFR > 60 > 60 Glucose (Clinic) Random Glucose 105 Hgb A1c (Clinic) 6.5 H C-Peptide AST 18 ALT 13 Alkaline Phosphatase 91 Total Protein 6.5 Triglycerides Cholesterol LDL Cholesterol, Calc HDL Cholesterol Urine Creatinine Urine Microalbumin Microalb/Creat Ratio Islet Cell Ab Screen SHERRY Antibody 03/22/25 03/22/25 08:06 08:45 Sodium Potassium Chloride Carbon Dioxide Creatinine Estimated GFR Glucose (Clinic) 188 H Random Glucose Hgb A1c (Clinic) C-Peptide 2.12 AST ALT Alkaline Phosphatase Total Protein Triglycerides 98 Cholesterol 157 LDL Cholesterol, Calc 97 HDL Cholesterol 41 Urine Creatinine 155.58 Urine Microalbumin < 5.0 Microalb/Creat Ratio TNP Islet Cell Ab Screen NEGATIVE SHERRY Antibody <5 Assessment & Plan Assessment & Plan (1) Type 2 diabetes mellitus, with long-term current use of insulin: Code(s): E11.9 - Type 2 diabetes mellitus without complications; Z79.4 - custodial (current) use of insulin Category: Medical Plan: We will add metformin. Discussed risks and benefits and adverse effects of the medication. Continue NovoLog sliding scale Continue Semglee 20 units daily CGM given today. Reordered sensors (2) HTN (hypertension): Code(s): I10 - Essential (primary) hypertension Category: Medical Plan: WNL. Continue current regimen Orders: Orders Comprehensive Met. Panel Today E11.9 - Type 2 diabetes mellitus without compli cations, I10 - Essential (primary) hypertension, Z79.4 - intermodal customer service (current) use of insulin Hemoglobin A1c Today E11.9 - Type 2 diabetes mellitus without complications, I10 - Essential (primary) hypertension, R73.01 - Impaired fasting glucose, Z79.4 - intermodal customer service (current) use of insulin Microalbumin, Random (w Creat) Today E11.9 - Type 2 diabetes mellitus without complications, I10 - Essential (primary) hypertension, Z79.4 - intermodal customer service (current) use of insulin Medications: New metformin ER (Glucophage XR) 500 mg PO QPM 90 tabs 0RF Changed From insulin glargine-yfgn (Semglee (insulin glargine-yfgn) Pen) 18 units subcut DIRECTED To insulin glargine-yfgn (Semglee (insulin glargine-yfgn) Pen) 20 units subcut DIRECTED From blood sugar diagnostic (OneTouch Ultra Test strips) As directed 10 ea diabetes mellitus E11.8 - Type 2 diabetes mellitus with unspecified complications, E11.9 - Type 2 diabetes mellitus without complications, Z79.4 - custodial (current) use of insulin To blood sugar diagnostic (OneTouch Ultra Test strips) use to check blood sugars up to 4 x a day 300 ea 3RF diabetes mellitus E11.8 - Type 2 diabetes mellitus with unspecified complications, E11.9 - Type 2 diabetes mellitus without complications, Z79.4 - custodial (current) use of insulin Refilled blood-glucose sensor (FreeStyle Bogdan 3 Plus Sensor device) Use daily As directed to monitor glucose 2 ea 5RF E08.29 - Diabetes mellitus due to underlying condition with other diabetic kidney complication, R80.9 - Proteinuria, unspecified, Z79.4 - intermodal customer service (current) use of insulin Coding Level of Care Code Est Pt Level 4 (13931) Complex EM visit Add On G2211 Diagnoses Type 2 diabetes mellitus, with long-term current use of insulin E11.9; Z79.4 HTN (hypertension) I10
[2025-04-19 09:13] LABS: Glucose, Whole Blood 219 mg/dL (60-115)
--- OUTSIDE RECORDS SUMMARY | 2025-04-19 09:22 | XMS_ITS | Clinical Summary ---
Author Organization [facility] Address [address] [place] [address] Phone Care Team Providers Care Binder Stripper Hand Name Role Phone Polo Noriega MD Primary Care Provider [phone] Allergies No known active allergies Medications insulin [...] 10/29/2024 Pancreatitis 10/28/2024 Pneumonia 10/20/2024 Cystic fibrosis ([facility] V24, [facility] V28) 10/20 Resolved Problems Problem Noted Date Diagnosed Date Resolved Date Acute kidney injury ([facility] V24) 10/24/2024 10/26/2024 Septic shock ([facility] V24, [facility] V28) 10/22/2024 10/26/2024 Acute respiratory failure wi th hypoxia ([facility] V24, [facility] V28) 10/20/2024 10/26/2024 Endotracheally intubated 10/20/202410/2024 On mechanically assisted garfield tilation ([facility] V24, [facility] V28) 10/20/2024 10/26/2024 Arterial hypotension 10/20/2024 025 Lactic acidosis 10/20/2024 10/26/2024 Encounters Date Type Department Care Team Description 03/24/2025 Telephone Infectious Disease - [address] [place] [address] Kathy Francisco MD from Last 3 Months Surgical History Surgery Date Site/Laterality Comments SHOULDER RT right shoulder surgery BRONCHOSCOPY Medical History Medical History Date Comments Cystic fibrosis ([facility] V24, [facility] V28) diagnosed in his 30s MSSA bacteremia Diabetes mellitus ([facility]24, [facility] V28) Respiratory failure requirin g intubation ([facility] V24, [facility] V28) 09/2024 Family History Medical History Relation [...] Care Team (Late st Contact Info) Description 05/19/2025 4:00 PM EDT Office Visit Infectious Disease - [place] [address] [facility] [address] [place] [phone] Kathy Francisco MD [address] [place] [address] [address] [place] [address] Health Maintenance Due Date Last Done Comments Diabetes: Annual Foot Exam 1986 Diabetes: Annual Retina Eye Exam 1986 Pneumococcal Vaccine: Pediatrics (0 to 5 Years) and At-Risk Patients (6 to 49 Years) (2 of 2 - PCV) 06/19/2009 06/19/2008 COVID-19 Vaccine ( season) 2024 01/20/2021, 12/23/2020 Depression Screening 08/26/2024 [...] 10/30/2024 12:36 PM [facility] Blood Venous blood specimen / Unknown Venipuncture / Unknown 10/30/2024 11:03 AM EST 10/30/2024 11:54 AM EST us Adonay Burgos MD LAB BLOOD ORDERABLES Final Resul t Performing Organization Address [facility]/ZIP Co de Phone Number [facility] [address] [place] [address], [place] [phone] * (ABNORMAL) Hemoglobin A1c (10/25/2024 4:25 AM EST) Hemoglobin A1C 10.2(H) <6.5 % LAB CHEMISTRY METHOD 10/26/2024 9:40 PM EST [facility] Mean Bld Glu Estim. 246 mg/dL LAB CHEMISTRY METHOD 10/26/2024 9:40 PM EST [facility] Blood Venous blood specimen / Unknown Venipuncture / Unknown 10/25/2024 4:25 AM EST 10/25/2024 6:57 AM EST us Crystal CAPUTO LAB BLOOD ORDERABLES Final R esult Performing Organization Address [facility]/ZIP Co de Phone Number [facility] [address] [place] [address], [place] [phone] from Last 3 Months or Most Recently Relevant to Health Maintenance Insurance [place] - [place] MEDICARE [facility] Member Subscriber Plan / Payer (Ef fective 2024-Present) Name:FILEMON BARTON Relation to Subscriber:Self Name:Filemon Barton Payer ID:[id number] Group ID:[id number] Type:Not on file Address: [address] [place] [phone] Advance Directives Documents on File Type Date Recorded 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 Do not modify or discontinue any currently active code status orders. Healthcare Agents on File Name Relationship Healthcare Agent Relationshi p Communication Agnes Barrios [facility] Health Care Agent Care Teams Binder Stripper Hand Relationship Specialty Start Date End Date Polo Noriega MD [address] [place] [address] PCP - General Internal Medicine 10/26/24
== END 2025-04-19 09:30 | disposition home or self-care (01) ==
LOC: HO.ENCR 08:51
PROVIDERS: PCP Nurse Practitioner Family; Visit Provider Physician Assistant
DX: E11.9 Type 2 diabetes mellitus without complications (principal); Z79.4 Long term (current) use of insulin; I10 Essential (primary) hypertension

== ENCOUNTER → 2025-04-19 08:50 | Outpatient (BNVA) | payer OTHER, SELFPAY | PROVIDERS: PCP Nurse Practitioner Family; Visit Provider Physician Assistant | DX: E11.29 Type 2 diabetes mellitus with other diabetic kidney complication (principal); I10 Essential (primary) hypertension; R80.9 Proteinuria, unspecified; Z79.4 Long term (current) use of insulin | CPT/HCPCS: 82947; 99212 ==

== ENCOUNTER 2025-04-30 08:29 | Outpatient (AMB) | payer OTHER, SELFPAY ==
--- NOTE | 2025-04-30 08:37 | A.OFFVIS_ITS ---
Vital Signs 3 04/30/25 08:41 Height 5 ft 9 in Weight 240 lb BMI 35.4 Intake Visit Reasons: New Pt- Bilateral diabetic foot care Intake Note: Filemon is a 49 year old male who presents today as a new patient for a evaluation for bilateral diabetic foot care. Patient reports having bilateral foot pain on the plantar aspect of the foot. He mentions he has tried taking tylenol and gabapentin for the pain which has provided minimal relief. 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 Patient presents with complaints of bilateral foot pain as well as numbness tingling and burning. He states he was recently diagnosed with diabetes approximately 3 months ago and has been experiencing these symptoms since then. He states his blood glucose today is 268 and his A1c is 6.5. He experiences pain to the plantar aspects of the feet worsened to the medial aspect of the calcaneus along the medial tubercle. Pain radiates to the lateral aspect of the calcaneus as well as to the dorsal aspect of the feet. He states he has been started in Gabapentin with some relief. He states his PCP recently prescribed him some diabetic shoes, insoles, socks but hasnt received them yet. He denies any recent injuries. Denies any other pedal concerns. Denies any nausea vomiting fever or chills. Patient is currently wearing sneakers unsupportive. Ambulation within normal limits. [facility] Medical History (Updated 04/30/25 @ 09:01 by Ayla Zapata DPM) Calcaneal spur of both feet Foot pain, bilateral Plantar fasciitis, bilateral Arthritis Diabetes Pneumonia Respiratory failure (~10/2024) Surgical History H/O shoulder surgery Family History Mother Asthma HTN (hypertension) High cholesterol Diabetes Father Asthma HTN (hypertension) High cholesterol Diabetes Substance abuse Social History Household Members: Other Household Members Other:: brother Both parents involved: No Caregiver staying overnight: No Housing: House Are you a primary wound care center consultant to a significant other at home: No Do you presently have visiting nurse or other home services: No 75 years or older and lives alone: No Alcohol intake: current Alcohol intake frequency: a few times a month Patient Tobacco Use Status: Never used Tobacco e-Cigarette/Vaping Use: Never Used Second Hand Smoke Exposure: No Substance Use Type: Marijuana Current occupational status: unemployed Cognitive needs: No Hearing needs: No Vision needs: Yes (wear galsses) Review of Systems Const All systems reviewed & are unremarkable except as noted in HPI and below Physical Exam Vital Signs: BMI result Body Mass Index 35.4 Extrem Other: Bilateral lower extremity focused exam: Derm: Mild xerosis noted. Toenails noted to be within normal limits and length. Pre-hyperkeratotic lesions noted to the plantar medial aspect of the calcaneus bilateral. No open wounds noted. Skin turgor within normal limits. No maceration noted. No clinical signs of infection. Vasc: DP/PT pulses palpable. Cap refill time less than 3 seconds x10. No varicosities noted. No edema noted. Neuro: Protective sensations grossly diminished to monofilament and light touch. Musculoskeletal: Bilateral pes planus. Gait within normal limits. Pain on palpation to bilateral heels along the medial tubercles of the calcaneus, mild pain on palpation along the lateral tubercles of the calcaneus. Ankle/foot/toe images: 2 1. B/L heel pain Office Procedures Diabetic Foot Exam G9226 - Diabetic Foot Exam Results Reviewed Results Reviewed: Ordered bilateral foot three views x-rays to be performed prior to next visit. Assessment & Plan Assessment & Plan (1) Plantar fasciitis, bilateral: Code(s): M72.2 - Plantar fascial fibromatosis Category: Medical (2) Foot pain, bilateral: Code(s): M79.671 - Pain in right foot; M79.672 - Pain in left foot Category: Medical (3) Calcaneal spur of both feet: Code(s): M77.31 - Calcaneal spur, right foot; M77.32 - Calcaneal spur, left foot Category: Medical (4) Diabetic neuropathy: Code(s): E11.40 - Type 2 diabetes mellitus with diabetic neuropathy, unspecified Qualifiers: Diabetes mellitus type: type 2 Diabetes mellitus complication detail: d iabetic polyneuropathy Qualified Code(s): E11.42 - Type 2 diabetes mellitus with diabetic polyneuropathy Plan Provided patient with diabetic foot care education. Advised patient to monitor his feet daily, avoid barefoot walking, and wear supportive shoe gear. Discussed with the patient importance of nail care and callus care in the future (patient to be scheduled for continuous nail care and callus care going forward). Advised patient to keep his feet clean and dry as well as moisturize. Discussed with the patient to continue using gabapentin as directed. Provided patient with education on plantar fasciitis. Ordered bilateral foot x- rays to be performed prior to next visit. Provided patient with instructions on plantar fascial exercises (provided patient with instructional form). Discussed with the patient conservative and surgical treatment options for this condition. At this time patient is to continue with conservative treatment. Patient is to return to the office in 2 weeks for follow-up of x-rays and plantar fasciitis. If pain persists or worsens we will consider night splint physical therapy and/or injection. Discussed with the patient if adverse worsening effects occur to call our office or go to the ED. Orders: Orders 2 XR Foot Filipe 3V Today E11.40 - Type 2 diabetes mellitus with diabetic neuropathy, unspecified, M72.2 - Plantar fascial fibromatosis, M77.31 - Calcaneal spur, right foot, M77.32 - Calcaneal spur, left foot, M79.671 - Pain in right foot, M79.672 - Pain in left foot Coding Level of Care Code New Pt Level 4 (68584) Diagnoses Plantar fasciitis, bilateral M72.2 Foot pain, bilateral M79.671; M79.672 Calcaneal spur of both feet M77.31; M77.32 Diabetic polyneuropathy associated with type 2 diabetes mellitus E11.42 Diabetes mellitus type: type 2 Diabetes mellitus complication detail: diabetic polyneuropathy CPT Codes Diabetic Foot Exam - CPT: G9226 - Diabetic Foot Exam ([id number]) Time Spent (min) 30
[2025-04-30 08:41] VITALS: BMI 35.4
--- OUTSIDE RECORDS SUMMARY | 2025-04-30 08:56 | XMS_ITS | Clinical Summary ---
Author Organization [facility] Address [address] [place] [address] Phone Care Team Providers Care Vice President Biostatistics Name Role Phone Polo Noriega MD Primary Care Provider [phone] Allergies No known active allergies Medications insulin [...] Team Description 03/24/2025 Telephone Infectious Disease - [address] [place] [address] Kathy Francisco MD from Last 3 Months Surgical History Surgery Date Site/Laterality Comments SHOULDER RT right shoulder surgery BRONCHOSCOPY Medical History Medical History Date Comments Cystic fibrosis ([facility] V24, [facility] V28) diagnosed in his 30s MSSA bacteremia Diabetes mellitus ([facility] V24, [facility] V28) Respiratory failure requirin g intubation ([facility] [...] PM EDT Office Visit Infectious Disease - [place] [address] [facility] [address] [place] [phone] Kathy Francisco MD [address] [place] [address] [address] [place] [address] Health Maintenance Due Date Last Done Comments Diabetes: Annual Foot Exam 1986 Diabetes: Annual Retina Eye Exam 1986 Pneumococcal Vaccine: Pediatrics (0 to 5 Years) and At-Risk Patients (6 to 49 Years) (2 of 2 - PCV) 06/19/2009 06/19/2008 Depression Screening 08/26/2024 Cholesterol Screening (Lipid Panel) 10/20/2024 Colorectal Cancer Screening: Colonoscopy 10/20/2024 Diabetes: Annual Urine Albumin-Creatinine Ratio (uACR) 10/20/2024 HIV Screening 10/20/2024 Hepatitis C Screening 10/20/2024 Medicare Annual Wellness Visit 10/20/2024 Social Influencers of Health Screening 10/20/2024 COVID-19 Vaccine (3 - season) 2025 01/20/2021, 12/23/2020 Influenza Vaccine (#1) 2025 , 06/13/2017, 07/18/2015, [...] mmol/L LAB CHEMISTRY METHOD 10/30/2024 12:36 PM [facility] Potassium 4.1 3.5 - 5.5 mmol/L LAB CHEMISTRY METHOD 10/30/2024 12:36 PM [facility] Chloride 101 96 - 110 mmol/L LAB CHEMISTRY METHOD 10/30/2024 12:36 PM [facility] CO2 27 21 - 32 mmol/L LAB CHEMISTRY METHOD 10/30/2024 12:36 PM [facility] Anion Gap 8 3 - 11 LAB CHEMISTRY METHOD 10/30/2024 12:36 PM [facility] Glucose 188(H) 70 - 100 mg/dL LAB CHEMISTRY METHOD 10/30/2024 12:36 PM [facility] BUN 5 5 - 25 mg/dL LAB CHEMISTRY METHOD 10/30/2024 12:36 PM [facility] Creatinine 0.83 0.70 - 1.30 mg/dL LAB CHEMISTRY METHOD 10/30/2024 12:36 PM [facility] eGFR 108 >=60 mL/min/1. 73m2 LAB CHEMISTRY METHOD 10/30/2024 12:36 PM [facility] Comment:Calculation based on the Chronic Kidney Disease Epidemiology Collaboration (CKD-EPI) equation refit without adjustment for race. BUN/Creatinine Ratio 6.0 LAB CHEMISTRY METHOD 10/30/2024 12:36 PM [facility] Calcium 8.5 8.5 - 10.5 mg/dL LAB CHEMISTRY METHOD 10/30/2024 12:36 PM [facility] Blood Venous blood specimen / Unknown Venipuncture / Unknown 10/30/2024 11:03 AM EST 10/30/2024 11:54 AM EST us Adonay Burgos MD LAB BLOOD ORDERABLES Final Resul t Performing Organization Address [facility]/ZIP Co de Phone Number [facility] [address] [place] [address], [place] [phone] * (ABNORMAL) Hemoglobin A1c (10/25/2024 4:25 AM EST) Hemoglobin A1C 10.2(H) <6.5 % LAB CHEMISTRY METHOD 10/26/2024 9:40 PM EST [facility] Mean Bld Glu Estim. 246 mg/dL LAB CHEMISTRY METHOD 10/26/2024 9:40 PM EST [facility] Blood Venous blood specimen / Unknown Venipuncture / Unknown 10/25/2024 4:25 AM EST 10/25/2024 6:57 AM EST us Crystal CAPUTO LAB BLOOD ORDERABLES Final R esult Performing Organization Address [facility]/ZIP Co de Phone Number [facility] [address] [place] [address], [place] [phone] from Last 3 Months or Most Recently Relevant to Health Maintenance Insurance MEDICAID - [place] MEDICARE [facility] Member Subscriber Plan / Payer (Ef fective 2024-Present) Name:FILEMON BARTON Relation to Subscriber:Self Name:Filemon Barton Payer ID:[id number] Group ID:[id number] Type:Not on file Address: [address] [place] [phone] Advance Directives Documents on File Type Date Recorded 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
== END 2025-04-30 09:06 | disposition home or self-care (01) ==
LOC: HO.HPODS 08:30
PROVIDERS: PCP Nurse Practitioner Family; Visit Provider Student in an Organized Health Care Education/Training Program
DX: M72.2 Plantar fascial fibromatosis (principal); M79.671 Pain in right foot; M79.672 Pain in left foot; E11.42 Type 2 diabetes mellitus with diabetic polyneuropathy; M77.31 Calcaneal spur, right foot; M77.32 Calcaneal spur, left foot
CPT/HCPCS: 99204

== ENCOUNTER 2025-04-30 08:29 | Outpatient (REF) | payer OTHER, SELFPAY ==
--- NOTE | ~2025-04-30 | XR_ITS ---
XR FOOT FILIPE 3V History: Plantar fascial fibromatosis. COMPARISON: None. TECHNIQUE: 3 views of each foot weightbearing. FINDINGS: RIGHT FOOT: No fracture, dislocation, or suspicious bone lesion. Normal bone mineralization. Normal alignment. Joint spaces are preserved. No significant arthropathy. Normal plantar arch. Hindfoot appears normal. Soft tissues appear normal. LEFT FOOT: No fracture, dislocation, or suspicious bone lesion. Normal bone mineralization. Normal alignment. Joint spaces are preserved. No significant arthropathy. Normal plantar arch. Hindfoot appears normal. Soft tissues appear normal. XR/XR Foot Filipe 3V IMPRESSION: 1. Normal bilateral feet. Electronically signed by: Dontae Joy MD 04/30/2025 10:34 AM EDT
== END 2025-04-30 08:30 | disposition home or self-care (01) ==
LOC: HO.XRAY 08:29
PROVIDERS: PCP Nurse Practitioner Family; Visit Provider Student in an Organized Health Care Education/Training Program
DX: M72.2 Plantar fascial fibromatosis (principal); E11.40 Type 2 diabetes mellitus with diabetic neuropathy, unspecified; M77.31 Calcaneal spur, right foot; M77.32 Calcaneal spur, left foot; M79.671 Pain in right foot; M79.672 Pain in left foot; Z79.899 Other long term (current) drug therapy
CPT/HCPCS: 73630; 99202

== ENCOUNTER → 2025-04-30 09:34 | Outpatient (BNV) | payer OTHER, SELFPAY | PROVIDERS: PCP Nurse Practitioner Family; Visit Provider Radiology Diagnostic Radiology | DX: M72.2 Plantar fascial fibromatosis (principal) | CPT/HCPCS: 73630 ==

== ENCOUNTER 2025-05-11 08:12 | Outpatient (AMB) | payer OTHER, SELFPAY ==
[2025-05-11 08:17] VITALS: BMI 35.4
--- NOTE | 2025-05-11 08:17 | A.OFFVIS_ITS ---
Vital Signs 3 05/11/25 08:17 Height 5 ft 9 in Weight 240 lb BMI 35.4 Intake Visit Reasons: Follow up Bilateral diabetic foot care Intake Note: Filemon is a 49 year old male who presents to the office today for a 2 week follow- up of x-rays and plantar fasciitis. Pt completed X-ray on 04/30/25. Patient reports the exercise instructions that were given to him had helped slightly but when he started walking again his feet began to hurt. 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 (FreeStyle Bogdan 3 [place]) Use daily As directed to monitor blood glucose cholecalciferol (vitamin D3) 50 mcg PO DAILY [diabetic shoes please provide 1 pair of shoes and 1 pair of inserts] famotidine 20 mg PO DAILY 30 days gabapentin 300 mg PO BEDTIME glucagon 3 mg/actuation 3 mg intranasal ONCE PRN glucose (Dex4 Glucose) 16 grams (4 x 4 gram) PO Q15M PRN insulin aspart U-100 4 units (0.04 mL) subcut TID insulin glargine-yfgn (Semglee (insulin glargine-yfgn) Pen) 20 units subcut DIRECTED ketoconazole 2% 1 appl topical 3XW lancets (Videonetics TechnologiesTouch Delica Plus Lancet) As directed lisinopril 5 mg PO DAILY 90 days metformin ER (Glucophage XR) 500 mg PO QPM methylprednisolone (Medrol (Srikanth)) PO PER PKG DIR pen needle, diabetic As directed HPI Comments Details: The patient is a 49-year-old male presenting for follow-up of bilateral plantar fasciitis and routine nail care. Patient states he has been performing the at home exercises but has been provided temporary mild relief. Patient states he still continues to experience significant pain, worsened upon ambulation. The patient has been attempting to sleep in a dorsiflexed position of the feet that alleviates the pain, but experiences severe discomfort upon waking. Patient states his blood glucose today was 235 mg/dL. The patient is currently undergoing transition from insulin to a possible oral hypoglycemic agent, but has not yet achieved adequate glycemic control at this time. The patient also reports a recent diagnosis of community-acquired pneumonia, experiencing symptoms such as a runny nose, cough, and feeling unwell. The patient has contacted their primary care physician for further management of this condition. He denies any other pedal concerns at this time. [facility] Medical History (Updated 05/11/25 @ 08:46 by Ayla Zapata DPM) Nail dystrophy Calcaneal spur of both feet Foot pain, bilateral Plantar fasciitis, bilateral Arthritis Diabetes Pneumonia Respiratory failure (~10/2024) Surgical History H/O shoulder surgery Family History Mother Asthma HTN (hypertension) High cholesterol Diabetes Father Asthma HTN (hypertension) High cholesterol Diabetes Substance abuse Social History Household Members: Other Household Members Other:: brother Both parents involved: No Caregiver staying overnight: No Housing: House Are you a primary director of home care hospice to a significant other at home: No Do you presently have visiting nurse or other home services: No 75 years or older and lives alone: No Alcohol intake: current Alcohol intake frequency: a few times a month Patient Tobacco Use Status: Never used Tobacco e-Cigarette/Vaping Use: Never Used Second Hand Smoke Exposure: No Substance Use Type: Marijuana Current occupational status: unemployed Cognitive needs: No Hearing needs: No Vision needs: Yes (wear galsses) Review of Systems Const Details: - Musculoskeletal: Reports significant foot pain when walking, alleviated temporarily by stretching exercises before sleep. - Endocrine: Reports blood sugar levels consistently over 200 mg/dL. - Respiratory: Reports runny nose and feeling unwell, consistent with community- acquired pneumonia. All systems reviewed & are unremarkable except as noted in HPI and below Physical Exam Vital Signs: BMI result Body Mass Index 35.4 Extrem Other: Bilateral lower extremity focused exam: Derm: Toenails noted to be slightly thickened and elongated X 10. Mild xerosis noted. Pre-hyperkeratotic lesions noted to the plantar medial aspect of the calcaneus bilateral. No open wounds noted. Skin turgor within normal limits. No maceration noted. No clinical signs of infection. Vasc: DP/PT pulses palpable. Cap refill time less than 3 seconds x10. No varicosities noted. No edema noted. Temperature gradient warm to warm. Neuro: Protective sensations grossly diminished to monofilament and light touch. Musculoskeletal: Bilateral pes planus. Mildly antalgic gait. Pain on palpation to bilateral heels along the medial tubercles of the calcaneus, mild pain on palpation along the lateral tubercles of the calcaneus. Ankle/foot/toe images: 2 1. 2. Office Procedures AMB Debridement/Avulsion Podia Details: Debrided toenails X 10 using a nail Nipper with no incidents. [id number] of Nail 6+ Procedure code (CPT) selection complete Results Reviewed Results Reviewed: Patient's blood glucose today was 235 mg/dL. Laboratory Tests 03/12/25 11:17 Hgb A1c (Clinic) 6.5 H Assessment & Plan Assessment & Plan (1) Plantar fasciitis, bilateral: Code(s): M72.2 - Plantar fascial fibromatosis Category: Medical (2) Foot pain, bilateral: Code(s): M79.671 - Pain in right foot; M79.672 - Pain in left foot Category: Medical (3) Calcaneal spur of both feet: Code(s): M77.31 - Calcaneal spur, right foot; M77.32 - Calcaneal spur, left foot Category: Medical (4) Diabetes mellitus with complication: Comment: peripheral neuropathy and HTN Code(s): E11.8 - Type 2 diabetes mellitus with unspecified complications Category: Medical (5) Peripheral sensory neuropathy due to type 2 diabetes mellitus: Code(s): E11.42 - Type 2 diabetes mellitus with diabetic polyneuropathy Category: Medical (6) Type 2 diabetes mellitus, with long-term current use of insulin: Code(s): E11.9 - Type 2 diabetes mellitus without complications; Z79.4 - technician terminal and repeater (current) use of insulin Category: Medical Qualifiers: Diabetes mellitus complication status: with other specified complication Qualified Code(s): E11.69 - Type 2 diabetes mellitus with other specified complication; Z79.4 - [facility] (current) use of insulin (7) Community acquired pneumonia: Code(s): J18.9 - Pneumonia, unspecified organism Category: Medical (8) Nail dystrophy: Code(s): L60.3 - Nail dystrophy Category: Medical Plan Patient was informed and verbally consented to the use of an ambient scribe for clinic note documentation during this visit. Discussed with patient recommendation of the use of a night splint and Medrol Dosepak for managing plantar fasciitis, emphasizing the importance of reducing inflammation and maintaining a dorsiflexed foot position during sleep. We also talked about the need for ongoing monitoring and adjustment of diabetes medications to achieve better glycemic control. I advised the patient to follow up with their primary care physician regarding the management of community- acquired pneumonia and to ensure they receive the prescription for diabetic shoes. 1. Plantar Fasciitis - Initiate use of a night splint to maintain foot position during sleep. Provided patient with 2 night splints to be applied bilaterally while sleeping. - Prescribe Medrol Dosepak to reduce inflammation. - Will Consider physical therapy and possible injection if symptoms persist. 2. Diabetes Mellitus With Poor Glycemic Control - Continue monitoring blood glucose levels and adjust medications as needed. - Follow up with primary care physician to optimize diabetes management. 3. Community-Acquired Pneumonia (Cap) - Await further instructions from primary care physician regarding management. 4. Preventative Care: Prescription For Diabetic Shoes - Provided printed prescription for diabetic shoes to improve foot care and prevent complications. Patient is to return to the office in 3 weeks for re-evaluation of plantar fasciitis. Orders: Orders 2 AMB Debridement/Avulsion Podiatry Today E11.42 - Type 2 diabetes mellitus with diabetic polyneuropathy, E11.8 - Type 2 diabetes mellitus with unspecified complications, E11.9 - Type 2 diabetes mellitus without complications, L60.3 - Nail dystrophy, M72.2 - Plantar fascial fibromatosis, M77.31 - Calcaneal spur, right foot, M77.32 - Calcaneal spur, left foot, M79.671 - Pain in right foot, M79.672 - Pain in left foot, Z79.4 - technician terminal and repeater (current) use of insulin Medications: New 2 methylprednisolone (Medrol (Srikanth)) PO PER PKG DIR 21 ea 0RF Plantar fasciitis M72.2 - Plantar fascial fibromatosis, M77.31 - Calcaneal spur, right foot, M77.32 - Calcaneal spur, left foot, M79.671 - Pain in right foot, M79.672 - Pain in left foot [diabetic shoes] please provide 1 pair of shoes and 1 pair of inserts 1 ea 0RF diabetic neuropathy E11.42 - Type 2 diabetes mellitus with diabetic polyneuropathy, E11.8 - Type 2 diabetes mellitus with unspecified complications, E11.9 - Type 2 diabetes mellitus without complications, M72.2 - Plantar fascial fibromatosis, M77.31 - Calcaneal spur, right foot, M77.32 - Calcaneal spur, left foot, M79.671 - Pain in right foot, M79.672 - Pain in left foot, Z79.4 - technician terminal and repeater (current) use of insulin [diabetic shoes] please provide 1 pair of shoes and 1 pair of inserts 1 ea 0RF diabetic neuropathy E11.42 - Type 2 diabetes mellitus with diabetic polyneuropathy, E11.8 - Type 2 diabetes mellitus with unspecified complications, E11.9 - Type 2 diabetes mellitus without complications, M72.2 - Plantar fascial fibromatosis, M77.31 - Calcaneal spur, right foot, M77.32 - Calcaneal spur, left foot, M79.671 - Pain in right foot, M79.672 - Pain in left foot, Z79.4 - [facility]CI (current) use of insulin Discontinued 2 [diabetic shoes] Discontinued Reason: Duplicate one pair with 3 sets inserts 1 ea 0RF E11.42 - Type 2 diabetes mellitus with diabetic polyneuropathy Coding Level of Care Code Est Pt Level 4 (05809) Diagnoses Plantar fasciitis, bilateral M72.2 Foot pain, bilateral M79.671; M79.672 Calcaneal spur of both feet M77.31; M77.32 Diabetes mellitus with complication E11.8 Peripheral sensory neuropathy due to type 2 diabetes mellitus E11.42 Type 2 diabetes mellitus with other specified complication, with long-term current use of insulin E11.69; Z79.4 Diabetes mellitus complication status: with other specified complication Community acquired pneumonia J18.9 Nail dystrophy L60.3 CPT Codes Skin Debridement - CPT: 03568-Zjkcppcrqsv of Nail 6+ ([id number]) Time Spent (min) 50
--- OUTSIDE RECORDS SUMMARY | 2025-05-11 09:26 | XMS_ITS | Clinical Summary ---
Author Organization [facility] Address [address] [place] [address] Phone Care Team Providers Care Freelance Programmer/App Developer Name Role Phone Polo Noriega MD Primary Care Provider [phone] Allergies No known active allergies Medications insulin [...] 10/29/2024 Pancreatitis 10/28/2024 Pneumonia 10/20/2024 Cystic fibrosis ([facility] V24, [facility] V28) 10/20 Resolved Problems Problem Noted Date Diagnosed Date Resolved Date Acute kidney injury ([facility] V24) 10/24/2024 10/26/2024 Septic shock ([facility] V24, [facility] V28) 10/22/2024 10/26/2024 Acute respiratory failure wi th hypoxia ([facility] V24, [facility] V28) 10/20/2024 10/26/2024 Endotracheally intubated 10/20/202410/2024 On mechanically assisted garfield tilation ([facility] V24, [facility] V28) 10/20/2024 10/26/2024 Arterial hypotension 10/20/2024 025 Lactic acidosis 10/20/2024 10/26/2024 Encounters Date Type Department Care Team Description 03/24/2025 Telephone Infectious Disease - [address] [place] [address] Kathy Francisco MD from Last 3 Months Surgical History Surgery Date Site/Laterality Comments SHOULDER RT right shoulder surgery BRONCHOSCOPY Medical History Medical History Date Comments Cystic fibrosis ([facility] V24, [facility] V28) diagnosed in his 30s MSSA bacteremia Diabetes mellitus ([facility] V24, [facility] V28) Respiratory failure requirin g intubation ([facility] V24, [facility] V28) 09/2024 Family History Medical History Relation [...] PM EDT Office Visit Infectious Disease - [place] [address] [facility] [address] [place] [phone] Kathy Francisco MD [address] [place] [address] [address] [place] [address] Health Maintenance Due Date Last Done Comments [...] mmol/L LAB CHEMISTRY METHOD 10/30/2024 12:36 PM [facility] Potassium 4.1 3.5 - 5.5 mmol/L LAB CHEMISTRY METHOD 10/30/2024 12:36 PM [facility] Chloride 101 96 - 110 mmol/L LAB CHEMISTRY METHOD 10/30/2024 12:36 PM [facility] CO2 27 21 - 32 mmol/L LAB CHEMISTRY METHOD 10/30/2024 12:36 PM [facility] Anion Gap 8 3 - 11 LAB CHEMISTRY METHOD 10/30/2024 12:36 PM [facility] Glucose 188(H) 70 - 100 mg/dL LAB CHEMISTRY METHOD 10/30/2024 12:36 PM [facility] BUN 5 5 - 25 mg/dL LAB CHEMISTRY METHOD 10/30/2024 12:36 PM [facility] Creatinine 0.83 0.70 - 1.30 mg/dL LAB CHEMISTRY METHOD 10/30/2024 12:36 PM [facility] eGFR 108 >=60 mL/min/1. 73m2 LAB CHEMISTRY METHOD 10/30/2024 12:36 PM [facility] Comment:Calculation based on the Chronic Kidney Disease Epidemiology Collaboration (CKD-EPI) equation refit without adjustment for race. BUN/Creatinine Ratio 6.0 LAB CHEMISTRY METHOD 10/30/2024 12:36 PM [facility] Calcium 8.5 8.5 - 10.5 mg/dL LAB CHEMISTRY METHOD 10/30/2024 12:36 PM [facility] Blood Venous blood specimen / Unknown Venipuncture / Unknown 10/30/2024 11:03 AM EST 10/30/2024 11:54 AM EST us Adonay Burgos MD LAB BLOOD ORDERABLES Final Resul t Performing Organization Address [facility]/ZIP Co de Phone Number [facility] [address] [place] [address], [place] [phone] * (ABNORMAL) Hemoglobin A1c (10/25/2024 4:25 AM EST) Hemoglobin A1C 10.2(H) <6.5 % LAB CHEMISTRY METHOD 10/26/2024 9:40 PM EST [facility] Mean Bld Glu Estim. 246 mg/dL LAB CHEMISTRY METHOD 10/26/2024 9:40 PM EST [facility] Blood Venous blood specimen / Unknown Venipuncture / Unknown 10/25/2024 4:25 AM EST 10/25/2024 6:57 AM EST us Crystal CAPUTO LAB BLOOD ORDERABLES Final R esult Performing Organization Address [facility]/ZIP Co de Phone Number [facility] [address] [place] [address], [place] [phone] from Last 3 Months or Most Recently Relevant to Health Maintenance Insurance [place]ICA[place] - [place] MEDICARE [facility] Member Subscriber Plan / Payer (Ef fective 2024-Present) Name:FILEMON BARTON Relation to Subscriber:Self Name:Filemon Barton Payer ID:[id number] Group ID:[id number] Type:Not on file Address: [address] [place] [id number] Advance Directives Documents on File Type Date Recorded 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
== END 2025-05-11 08:39 | disposition home or self-care (01) ==
LOC: HO.HPODS 08:12
PROVIDERS: PCP Nurse Practitioner Family; Visit Provider Student in an Organized Health Care Education/Training Program
DX: M72.2 Plantar fascial fibromatosis (principal); M79.671 Pain in right foot; E11.69 Type 2 diabetes mellitus with other specified complication; M79.672 Pain in left foot; M77.31 Calcaneal spur, right foot; E11.42 Type 2 diabetes mellitus with diabetic polyneuropathy; M77.32 Calcaneal spur, left foot; Z79.4 Long term (current) use of insulin; J18.9 Pneumonia, unspecified organism; L60.3 Nail dystrophy
CPT/HCPCS: 11721; 99214

== ENCOUNTER → 2025-05-11 08:12 | Outpatient (BNVA) | payer OTHER, SELFPAY | PROVIDERS: PCP Nurse Practitioner Family; Visit Provider Student in an Organized Health Care Education/Training Program | DX: M72.2 Plantar fascial fibromatosis (principal); M77.31 Calcaneal spur, right foot; M77.32 Calcaneal spur, left foot; M79.671 Pain in right foot; M79.672 Pain in left foot; E11.9 Type 2 diabetes mellitus without complications; Z79.4 Long term (current) use of insulin; E11.8 Type 2 diabetes mellitus with unspecified complications; E11.42 Type 2 diabetes mellitus with diabetic polyneuropathy | CPT/HCPCS: 99212 ==

== ENCOUNTER → 2025-05-24 23:59 | Outpatient (BNV) | payer OTHER, SELFPAY | PROVIDERS: PCP Nurse Practitioner Family; Visit Provider Nurse Practitioner Family | DX: J96.01 Acute respiratory failure with hypoxia (principal); E84.9 Cystic fibrosis, unspecified | CPT/HCPCS: G0180 ==

== ENCOUNTER 2025-05-26 11:21 | Outpatient (AMB) | payer OTHER, SELFPAY ==
--- NOTE | 2025-05-26 11:25 | A.OFFPC_ITS ---
Vital Signs 3 05/26/25 11:28 Height 5 ft 9 in Weight 228 lb BMI 33.7 BP 132/70 Blood Pressure Location Lt brachial Position Sitting Respiration 13 Pulse 78 Pulse Source Pulse Oximeter Temp 97.3 F Temp Source Oral Pulse Oximetry (%) 98 Oxygen Delivery Method Room Air Intake Visit Reasons: D/C 05/17 from [facility] Intake Note: DC follow up from [facility] on 05/17/25. [employer] Specials Required: No Allergies No Known Allergies (No Known Allergies*) Allergy (Verified 05/26/25 11:26) Medication List - Last Reviewed 05/26/25 by Helga Andujar MA albuterol sulfate 90 mcg/actuation (Ventolin HFA) inhalation blood sugar diagnostic (Frogdiceuch Ultra Test strips) use to check blood sugars up to 4 x a day blood-glucose meter (MesoCoat Ultra2 Meter) As directed blood-glucose sensor (Upward MobilityStyle Bogdan 3 Plus Sensor device) Use daily As directed to monitor glucose blood-glucose,leach runner,cont (FreeStyle Bogdan 3 Healy) Use daily As directed to monitor blood glucose cholecalciferol (vitamin D3) 50 mcg PO DAILY [diabetic shoes please provide 1 pair of shoes and 1 pair of inserts] dornase lesley (Pulmozyme) mg inhalation famotidine 20 mg PO DAILY 30 days vcchcyvlxxz-zdbbylvcb-scmvrmgn 100-62.5-25 mcg (Trelegy Ellipta) 1 inh inhalation DAILY gabapentin 300 mg PO BEDTIME glucagon 3 mg/actuation 3 mg intranasal ONCE PRN glucose (Dex4 Glucose) 16 grams (4 x 4 gram) PO Q15M PRN insulin aspart U-100 4 units (0.04 mL) subcut TID insulin glargine-yfgn (Semglee (insulin glargine-yfgn) Pen) 40 units subcut DIRECTED ketoconazole 2% 1 appl topical 3XW lancets ([employer] FinanceTouch Delica Plus Lancet) As directed lisinopril 10 mg PO DAILY metformin ER (Glucophage XR) 500 mg PO QPM pen needle, diabetic As directed Tobacco use date assessed: 05/26/25 Dental Screening Dental Screen Date: 05/26/25 Did you have a dental visit in the last 12 months?: Yes Did you have a dental problem in the last 6 months where you did not have access to dental care?: No Was dental information given to patient?: Patient has dentist HPI HPI Comments 2 History of Present Illness0 Details 49 y/o M with DM2 with complication, Cys tic Fibrosis, GERD, HTN, anemia, hypoalbuminemia, pancreatitis, hx of pna 10/2024 requiring intubation, Bacteremia (MSSA 10/2024), Obesity, MAC, plantar fasciitis, Surgery: R shoulder surgery Family hx: Mom and Dad ; Mom MA,DM; Dad etoh, DM. Children - none. Social: disabled; lives w/ brother. Drives. Health Maintenance: Colon referral to [facility] [place] for first screening colon PSA 02/2025 Tdap 2024 Specialists: Infectious disease, Pulm, [facility] next visit 06/02/25 CF vest no longer covered, working on getting a new one Optho wears glasses, [facility]; 12/2024 reports negative retinopathy GI Podiatry Endo Here today for a Transitional Care Management Visit Discharge summary reviewed. Admission Date: 05/13/25 Discharge Date: 05/18/25 Hospital: [facility] Date of interactive contact with Nurse Navigator: as documented in chart Pending diagnostic tests/treatments: none Pending consults: none DME: N PT/OT/ASSOCIATE PUBLISHER: N Medications reconciled & updated. During todays TCM visit, the d/c summary was reviewed, along with the need for or follow-up on pending diagnostic tests and treatments, as necessary interaction with other health patient care technician instructor who will assume or reassume care of the beneficiary?s system-specific problems was done or is being worked on, education was provided to the beneficiary, family, guardian, and/or caregiver, referrals to establish or re-establish and arrange needed community resources we completed, assistance in scheduling required follow-up with community providers and services & finally updated medication list given to patient/caregiver Feeling better Taking all meds as directed Blood sugars stable BP at goal Working on getting help in home for aDLs Physical Exam General: Well developed, well nourished, in no acute distress. Appears stated age. Head: Normocephalic, atraumatic. Eyes: Pupils are equal, round and reactive to light and accommodation. Conjunctivae are clear. Vision grossly normal. Ears: TMs clear AU, EACS WNL Nose: Patent, without discharge. Neck: Supple, no adenopathy or thyromegaly Breast: Edu on SBE Lungs: Dim throughout, no cough or wheezing Heart: Regular rate and rhythm. No murmurs, click, rubs or gallops are noted. Pulses: Peripheral pulses are equal and palpable bilaterally. Ext: No edema Neurologic: Gait and station normal. Cranial Nerves 2-12 intact. Motor strength grossly symmetrical and intact. No sensory loss. Balance normal. Results Assessment and Plan 1. Respiratory Failure due to Cystic Fib rosis - Continue Trelegy, cystic fibrosis spec ialist follow-up. Get flu shot at CF clinic avoid sick contacts 2. Type 2 Diabetes Mellitus with Complic ations - Monitor insulin response. - fu with endocrinology review. - cont podiatry for diabetic foot care 3. Essential Hypertension - Continue lisinopril 10 mg RTO in Jun as scheduled, sooner as needed. Total time spent caring for the patient today was 45 minutes. This includes time spent before the visit reviewing the chart, time spent during the visit, and time spent after the visit on documentation, reviewing laboratory results, diagnostic imaging, medications, performing a medically necessary evaluation, counseling on diagnoses, care coordination, ordering appropriate tests, ordering appropriate medications, review of tests performed by other providers, reporting test results with the patient, communication with other healthcare providers. [facility] Medical History (Updated 05/26/25 @ 12:08 by LISA Varner) Arthritis Calcaneal spur of both feet Community acquired pneumonia Diabetes Foot pain, bilateral Nail dystrophy Plantar fasciitis, bilateral Pneumonia Respiratory failure (~10/2024) Surgical History (Updated 05/26/25 @ 12:08 by LISA Varner) H/O shoulder surgery Family History Mother Asthma HTN (hypertension) High cholesterol Diabetes Father Asthma HTN (hypertension) High cholesterol Diabetes Substance abuse Social History Household Members: Other Household Members Other:: brother Both parents involved: No Caregiver staying overnight: No Housing: House Are you a primary healthcare receptionist to a significant other at home: No Do you presently have visiting nurse or other home services: No 75 years or older and lives alone: No Alcohol intake: current Alcohol intake frequency: a few times a month Patient Tobacco Use Status: Never used Tobacco e-Cigarette/Vaping Use: Never Used Second Hand Smoke Exposure: No Substance Use Type: Marijuana Current occupational status: unemployed Cognitive needs: No Hearing needs: No Vision needs: Yes (wear galsses) Questionnaire PHQ-9 Over the last 2 weeks, how often have you been bothered by any of the following problems? 1. Little interest or pleasure in doing things: not at all 2. Feeling down, depressed, or hopeless: not at all 3. Trouble falling or staying asleep, or sleeping too much: not at all 4. Feeling tired or having little energy: not at all 5. Poor appetite or overeating: not at all 6. Feeling bad about yourself - or that you are a failure or have let yourself or your family down: not at all 7. Trouble concentrating on things, such as reading the newspaper or watching television: not at all 8. Moving or speaking so slowly that other people could have noticed. Or the opposite - being so fidgety or restless that you have been moving around a lot more than usual: not at all 9. Thoughts that you would be better off or of hurting yourself in some way: not at all Total score: 0 Depression Screening Interpretation: Negative Depression Screening Done: Yes 17918 - PHQ-9 Billing: Yes Source: Developed by Drs. Wang Krishnan, Kiarra Maher, Geraldo Lundberg and colleagues, with an educational mir from [employer]. Thrive Questionnaire Date Thrive assessed: 05/26/25 I am a: Patient What is your living situation today?: I have a steady place to live Within the past 12 months, did the food you bought not last and you didn't have the money to get more?: Sometimes True Within the past 12 months, did you worry whether your food would run out before you got money to buy more?: Never true Do you have trouble paying for medicines?: No Do you have trouble getting transportation to medical appointments?: No Do you have trouble paying your heating and electricity bill?: No Do you have trouble taking care of your child, family member or friend?: No Do you have trouble with day-to-day activities such as bathing, preparing meals, shopping, managing finances, etc.?: No Are you currently unemployed and looking for a job?: Yes Are you interested in more education?: No Please select the resources that you would like help with: None Currently or been in a relationship where the following occur: No concerns reported THRIVE Score: 1 SHERRY-7 AMB Questionnaire SHERRY-7 Date SHERRY - 7 assessed: 05/26/25 Feeling nervous, anxious, or on edge: 0 = Not at all Not being able to stop or control worryin = Not at all Worrying too much about different things: 0 = Not at all Trouble relaxin = Not at all Being so restless that it is hard to sit still: 0 = Not at all Becoming easily annoyed or irritable: 0 = Not at all Feeling afraid as if something awful might happen: 0 = Not at all Total SHERRY-7 score (0-4 normal; 5-9 mild; 10-14 moderate; 15-21 severe): 0 Source: Developed by Drs. Wang Krishnan, Kiarra Maher, Geraldo Lundberg and colleagues, with an educational mir from [employer]. SHERRY-7 Assessment Billing SHERRY-7 Assessment Tool: SHERRY-7 Assessment [id number] Physical exam (Primary Care) Vital Signs: Last Vital Signs Temp 97.3 F 05/26/25 11:28 Pulse 78 05/26/25 11:28 Resp 13 05/26/25 11:28 BP 132/70 05/26/25 11:28 Pulse Ox 98 05/26/25 11:28 Oxygen Delivery Method Room Air 05/26/25 11:28 BMI result Body Mass Index 33.7 Tobacco/Smoking Status: Tobacco use Status Tobacco use date assessed 05/26/25 05/26/25 11:29 Patient Tobacco Use Status Never used Tobacco 05/26/25 11:29 e-Cigarette/Vaping Use Never Used 05/26/25 11:29 PHQ-9: PHQ-9 Score PHQ-9: Total score 0 05/26/25 11:50 Depression Screening Interpretation: Negative Thrive Assessment: Date of Thrive Assessment Date Thrive assessed 05/26/25 05/26/25 11:29 Currently or been in a relationship where the following occur: No concerns reported Coding Level of Care Code TCM High MDM <= 14 days Complex EM visit Add On G2211 Diagnoses Hospital discharge follow-up Z09 Hypertension 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 Hypertension type: secondary to endocrine disorders Diabetes mellitus with complication E11.8 History of endotracheal intubation Z98.890 Cystic fibrosis E84.9 Additional Codes SHERRY-7 Assessment Billing - SHERRY-7 Assessment Tool: SHERRY-7 Assessment [id number] ([id number]) PHQ-9 - 72246 - PHQ-9 Billing: Yes ([id number]) Assessment & Plan Assessment & Plan (1) Hospital discharge follow-up: Code(s): Z09 - Encounter for follow-up examination after completed treatment for conditions other than malignant neoplasm (2) HTN (hypertension): Code(s): I10 - Essential (primary) hypertension Category: Medical Qualifiers: Hypertension type: secondary to endocrine disorders Qualified Code(s): I15.2 - Hypertension secondary to endocrine disorders (3) Diabetes mellitus with complication: Comment: peripheral neuropathy and HTN Code(s): E11.8 - Type 2 diabetes mellitus with unspecified complications Category: Medical (4) History of endotracheal intubation: Onset Date: ~10/2024 Comment: 04/2025 d/t rhinovirus [facility] Code(s): Z98.890 - Other specified postprocedural states Category: Surgical (5) Cystic fibrosis: Code(s): E84.9 - Cystic fibrosis, unspecified Category: Medical Plan . Medications: New 2 lisinopril 10 mg PO DAILY 90 tabs 2RF oetegarssit-hdrqcyxub-forwjsqt 100-62.5-25 mcg (Trelegy Ellipta) 1 inh inhalation DAILY 60 ea 12RF Changed 2 From insulin glargine-yfgn (Semglee (insulin glargine-yfgn) Pen) 40 units subcut DIRECTED To insulin glargine-yfgn (Semglee (insulin glargine-yfgn) Pen) 30 units subcut DIRECTED Discontinued 2 methylprednisolone (Medrol (Srikanth)) Discontinued Reason: Patient Completed Course PO PER PKG DIR 21 ea 0RF Plantar fasciitis M72.2 - Plantar fascial fibromatosis, M77.31 - Calcaneal spur, right foot, M77.32 - Calcaneal spur, left foot, M79.671 - Pain in right foot, M79.672 - Pain in left foot lisinopril Discontinued Reason: Patient Completed Course 5 mg PO DAILY 90 days 90 tabs 3RF
[2025-05-26 11:28] VITALS: BP 132/70; PULSE 78; RESP 13; TEMP 36.3; O2SAT 98; BMI 33.7
--- OUTSIDE RECORDS SUMMARY | 2025-05-26 13:00 | XMS_ITS | Clinical Summary ---
Author Organization [facility] Address [address] [place] [address] Phone Care Team Providers Care Self Storage Manager Name Role Phone Polo Noriega MD Primary Care Provider [phone] Allergies No known active allergies Medications insulin aspart (NovoLOG FlexPen) 100 unit/mL (3 mL) injection pen 3 times a day before meals Blood sugar level <150mg/dl -0 units 150-199mg/dl - 1 units 200-249 mg/dl - 2 units 250-299 mg/dl - 3 units 300-349 mg/dl - 4 units 350-399 mg/dl - 5 units notify provider if >400 mg/dl 025 Active Additional Information Patient taking differently: 4 Units subcutaneous 3 times daily before meals, (No instructions reported), Reported on 05/13/2025 Ventolin HFA 90 mcg/actuation inhaler 025 Active famotidine (PEPCID) 20 mg tablet Take 1 tablet (20 mg total) by mouth at bedtime. at bedtime Active ipratropium-alb uteroL (DUONEB) 0.5-2.5 mg/3 mL nebulizer solution Inhale by mouth. 025 Active lidocaine 4 % patch Apply topically 1 (one) time each day at the same time. 025 Active melatonin 3 mg tablet Take by mouth. 025 Active BD Ultra-Fine Mini Pen Needle 31 gauge x 3/16 needle 025 Active cholecalciferol (VITAMIN D-3) 1,250 mcg (50,000 unit) capsule Take 1,250 mcg by mouth 1 (one) time per week. 2024 Active glucose 4 gram chewable tablet CHEW 4 TABLETS EVERY 15 MINUTES NEEDED FOR HYPOGLYCEMIA Active Pulmozyme 1 mg/mL nebulizer solution Take 2.5 mg by nebulization 1 (one) time each day. Active gabapentin (NEURONTIN) 300 mg capsule Take 1 capsule (300 mg total) by mouth at bedtime. Active Baqsimi 3 mg/actuation nasal spray INHALE 3MG ONCE NEEDED FOR HYPOGLYCEMIA Active metFORMIN XR (GLUCOPHAGE-XR) 500 mg 24 hr tablet Take 1 tablet (500 mg total) by mouth 1 (one) time each day in the evening. Active Hyper-Gillian 7 % solution for nebulization nebulizer solution Take 4 mL by nebulization 2 (two) times a day. Active albuterol 2.5 mg /3 mL (0.083 %) nebulizer solution Inhale 3 mL by mouth every 6 (six) hours if needed for wheezing. Active predniSONE (DELTASONE) 20 mg tablet Take 2 tablets (40 mg total) by mouth 1 (one) time each day for 3 days, THEN 1.5 tablets (30 mg total) 1 (one) time each day for 3 days, THEN 1 tablet (20 mg total) 1 (one) time each day for 3 days, THEN 0.5 tablets (10 mg total) 1 (one) time each day for 3 days. 15 each 2024 Active guaiFENesin (ROBITUSSIN) 100 mg/5 mL liquid Take 20 mL (400 mg total) by mouth every 6 (six) hours for 10 days. 120 mL 2024 Active lisinopriL (PRINIVIL,ZESTR IL) 5 mg tablet Take 2 tablets (10 mg total) by mouth 1 (one) time each day. 60 each 2 025 2024 Active fluticasone-ume clidinium-vilan terol (Trelegy Ellipta) 100-62.5-25 mcg inhaler Inhale 1 puff (100 mcg total) by mouth 1 (one) time each day. Rinse mouth with water after use to reduce aftertaste and incidence of candidiasis. Do not swallow. 1 each 12 025 2025 Active Semglee,insulin glarg-yfgn,Pen 100 unit/mL (3 mL) injection Inject 30 Units under the skin 1 (one) time each day in the morning. 15 mL 11 Active insulin glargine (LANTUS SoloStar) 100 unit/mL (3 mL) injection pen Inject 10 Units under the skin 1 (one) time each day in the morning. 025 2024 Discontinued(S top Taking at Discharge) acetaminophen (TYLENOL) 325 mg tablet Take by mouth every 8 hours. 2024 Discontinued(S top Taking at Discharge) Semglee,insulin glarg-yfgn,Pen 100 unit/mL (3 mL) injection Inject 20 Units under the skin 1 (one) time each day in the morning. 025 2024 Discontinued insulin lispro (HumaLOG KwikPen Insulin) 100 unit/mL injection pen Inject under the skin. 025 2024 Discontinued(S top Taking at Discharge) lisinopriL (PRINIVIL,ZESTR IL) 5 mg tablet Take 1 tablet (5 mg total) by mouth 1 (one) time each day. 2024 Discontinued insulin glargine-yfgn (Semglee,insuli n glarg-yfgn,Pen) 100 unit/mL (3 mL) injection Inject 19 Units under the skin at bedtime. 2024 Discontinued(S top Taking at Discharge) Active Problems Problem Noted Date Diagnosed Date Acute pancreatitis without i nfection or necrosis, unspecified pancreatitis type 10/29/2024 Pancreatitis 10/28/2024 Pneumonia 10/20/2024 Cystic fibrosis ([facility] V24, [facility] V28) 10/20 Resolved Problems Problem Noted Date Diagnosed Date Resolved Date Acute respiratory failure, u nspecified whether with hypoxia or hypercapnia ([facility] V24, [facility] V28) 05/13/2025 05/18/2025 Acute kidney injury ([facility] V24) 10/24/2024 10/26/2024 Septic shock ([facility] V24, [facility] V28) 10/22/2024 10/26/2024 Acute respiratory failure wi th hypoxia ([facility] V24, [facility] V28) 10/20/2024 10/26/2024 Endotracheally intubated 10/20/202410/2024 On mechanically assisted garfield tilation ([facility] V24, [facility] V28) 10/20/2024 10/26/2024 Arterial hypotension 10/20/2024 025 Lactic acidosis 10/20/2024 10/26/2024 Encounters Date Type Department Care Team Description 05/13/2025 1:00 PM EDT - 05/18/2025 11:16 AM EDT Hospital Encounter [facility] [address] [place] [id number] Cherri Garduno, Mello Cerna DO Bonacum, Julia T, MD Bukalo, Nermina, MD Bell, Alistair A, MD Acute respiratory failure, unspecified whether with hypoxia or hypercapnia ([facility] V24, [facility] V28) (Primary Dx); Cystic fibrosis ([facility] V24, [facility] V28) Discharge Dis[place]: [place] [facility] [place] Tele[place] Infectious Disease - [address] [place] [address] Kathy Francisco MD from Last 3 Months Surgical History Surgery Date Site/Laterality Comments SHOULDER RT right shoulder surgery BRONCHOSCOPY Medical History Medical History Date Comments Cystic fibrosis ([facility] V24, [facility] V28) diagnosed in his 30s MSSA bacteremia Diabetes mellitus ([facility] V24, [facility] V28) Respiratory failure requirin g intubation ([facility] V24, [facility] V28) 09/2024 Family History Medical History Relation Name Comments Diabetes Mother Relation Name Status Comments Mother Social History Tobacco Use Types Packs/Day Years Used Date Smoking Tobacco: Never Passive Smoke Exposure: Never Smokeless Tobacco: Never Tobacco Cessation:Counseling Given: Not Answered Alcohol Use Standard Drinks/Week Comments Yes 0 (1 standard drink = 0.6 oz pur e alcohol) occasional Food Risk Answer Date Recorded Within the past 12 months we worried whether our food would run out before we got money to buy more. Never true 05/14/2025 Within the past 12 months th e food we bought just didn't last and we didn't have money to get more. Never true 05/14/2025 Interpersonal Safety Answer Date Record ed Physical Abuse Unrecognized value 10/28/2024 Verbal Abuse Unrecognized value 10/28/2024 Sex and Gender Information Value Date Recorded Sex Assigned at Male 10/20/2024 12:23 PM EST Legal Sex Male 10:22 AM EST Gender Identity Male 10/20/2024 12:23 PM EST Sexual Orientation Straight 10/28/2024 3: 35 AM EST Obstetrics History Last Filed Vital Signs Vital Sign Reading Time Taken Comments Blood Pressure 152/89 05/18/2025 7:41 AM EDT Pulse 114 05/18/2025 7:41 AM EDT Temperature 36.3 C (97.3 F) 05/18/2025 7:41 AM EDT Respiratory Rate 16 05/18/2025 7:41 AM EDT Oxygen Saturation 96% 05/18/2025 7:41 AM EDT Inhaled Oxygen Concentration - - Weight 115 kg (253 lb 8.5 oz) 05/14/2025 5:02 AM EDT Height 175.3 cm (5' 9 ) 05/13/2025 12:56 PM EDT Body Mass Index 37.44 05/13/2025 12:56 PM EDT Plan of Treatment Health Maintenance Due Date Last Done Comments Colorectal Cancer Screening: Colonoscopy 1976 Diabetes: Annual Foot Exam 1986 Diabetes: Annual Retina Eye Exam 1986 Pneumococcal Vaccine: Pediatrics (0 to 5 Years) and At-Risk Patients (6 to 49 Years) (2 of 2 - PCV) 06/19/2009 06/19/2008 Depression Screening 08/26/2024 Cholesterol Screening (Lipid Panel) 10/20/2024 Diabetes: Annual Urine Albumin-Creatinine Ratio (uACR) 10/20/2024 HIV Screening 10/20/2024 Hepatitis C Screening 10/20/2024 Medicare Annual Wellness Visit 10/20/2024 COVID-19 Vaccine ( season) 2025 01/20/2021, 12/23/2020 Influenza Vaccine (#1) 2025 , 06/13/2017, 07/18/2015, Additional history exists Diabetes: Blood Sugar Control Test (HGBA1C) 11/14/2025 05/17/2025, 10/25/2024 Social Influencers of Health Screening 05/14/2026 05/14/2025 Diabetes: Annual GFR (Glomerular Filtration Rate) 05/17/2026 05/17/2025, 05/16/2025, 05/15/2025, Additional history exists Hypertension/CHF/CAD Annual BMP Blood Test 05/17/2026 05/17/2025, 05/16/2025, 05/15/2025, Additional history exists DTaP,Tdap,and Td Vaccines (4 - Td or Tdap) 03/12/2035 03/12/2025, 04/27/2016, 03/06/2006 RSV Immunization Adult Patients (1 - 1-dose 75+ series) 2051 Hepatitis A Vaccines Aged Out 06/01/2010 No [...] Procedure Name Priority Date/Time Associated Diagnosis Comments ECG ANNOTATED 05/19/2025 POCT GLUCOSE BLOOD Routine 05/18/2025 7: 44 AM EDT POCT GLUCOSE BLOOD Routine 05/18/2025 4: 22 AM EDT POCT GLUCOSE BLOOD Routine 05/18/2025 12 :25 AM EDT POCT GLUCOSE BLOOD Routine 05/17/2025 7: 50 PM EDT POCT GLUCOSE BLOOD Routine 05/17/2025 5: 09 PM EDT POCT GLUCOSE BLOOD Routine 05/17/2025 11 :33 AM EDT POCT GLUCOSE BLOOD Routine 05/17/2025 8: 23 AM EDT PEP THERAPY Routine 05/17/2025 8:02 AM EDT HEMOGLOBIN A1C Add-On 05/17/2025 3:33 AM EDT CBC WITH AUTO DIFFERENTIAL Routine 05/17/2025 3:33 AM EDT CALCIUM, IONIZED Routine 05/17/2025 3:33 AM EDT PHOSPHORUS Routine 05/17/2025 3:33 AM EDT MAGNESIUM Routine 05/17/2025 3:33 AM EDT BASIC METABOLIC PANEL Routine 05/17/2025 3:33 AM EDT CBC AND DIFFERENTIAL Routine 05/17/2025 3:33 AM EDT POCT GLUCOSE BLOOD Routine 05/17/2025 12 :20 AM EDT PEP THERAPY Routine 05/16/2025 10:00 PM EDT POCT GLUCOSE BLOOD Routine 05/16/2025 8: 38 PM EDT POCT GLUCOSE BLOOD Routine 05/16/2025 4: 11 PM EDT PEP THERAPY Routine 05/16/2025 1:00 PM EDT POCT GLUCOSE BLOOD Routine 05/16/2025 12 :31 PM EDT POCT GLUCOSE BLOOD Routine 05/16/2025 8: 07 AM EDT PEP THERAPY Routine 05/16/2025 8:00 AM EDT CBC WITH AUTO DIFFERENTIAL Routine 05/16/2025 3:27 AM EDT CBC AND DIFFERENTIAL Routine 05/16/2025 3:27 AM EDT PROCALCITONIN Routine 05/16/2025 3:27 AM EDT HEPATIC FUNCTION PANEL Routine 3:27 AM EDT PHOSPHORUS Routine 05/16/2025 3:27 AM EDT MAGNESIUM Routine 05/16/2025 3:27 AM EDT CALCIUM, IONIZED Routine 05/16/2025 3:27 AM EDT BASIC METABOLIC PANEL Routine 05/16/2025 3:27 AM EDT POCT GLUCOSE BLOOD Routine 05/15/2025 11 :24 PM EDT PEP THERAPY Routine 05/15/2025 10:00 PM EDT ECG 12-LEAD Routine 05/15/2025 8:39 PM EDT POCT GLUCOSE BLOOD Routine 05/15/2025 8: 19 PM EDT PEP THERAPY Routine 05/15/2025 6:00 PM EDT PEP THERAPY Routine 05/15/2025 5:11 PM EDT PEP THERAPY Routine 05/15/2025 5:11 PM EDT PEP THERAPY Routine 05/15/2025 5:11 PM EDT PEP THERAPY Routine 05/15/2025 5:11 PM EDT POCT GLUCOSE BLOOD Routine 05/15/2025 4: 41 PM EDT POCT GLUCOSE BLOOD Routine 05/15/2025 12 :07 PM EDT EXTUBATION Routine 05/15/2025 11:09 AM EDT AMMONIA Routine 05/15/2025 9:51 AM EDT POCT GLUCOSE BLOOD Routine 05/15/2025 8: 27 AM EDT CHEST PHYSIOTHERAPY Routine 05/15/2025 8 :00 AM EDT POCT GLUCOSE BLOOD Routine 05/15/2025 6: 13 AM EDT XR CHEST 1 VIEW Routine 05/15/2025 5:25 AM EDT POCT GLUCOSE BLOOD Routine 05/15/2025 5: 08 AM EDT CBC WITH AUTO DIFFERENTIAL Routine 05/15/2025 4:33 AM EDT CBC AND DIFFERENTIAL Routine 05/15/2025 4:33 AM EDT PROCALCITONIN Routine 05/15/2025 4:33 AM EDT PHOSPHORUS Routine 05/15/2025 4:33 AM EDT MAGNESIUM Routine 05/15/2025 4:33 AM EDT CALCIUM, IONIZED Routine 05/15/2025 4:33 AM EDT BASIC METABOLIC PANEL Routine 05/15/2025 4:33 AM EDT POCT GLUCOSE BLOOD Routine 05/15/2025 4: 09 AM EDT CHEST PHYSIOTHERAPY Routine 05/15/2025 2 :02 AM EDT POCT GLUCOSE BLOOD Routine 05/15/2025 1: 45 AM EDT POCT GLUCOSE BLOOD Routine 05/14/2025 11 :45 PM EDT POCT GLUCOSE BLOOD Routine 05/14/2025 9: 55 PM EDT POCT GLUCOSE BLOOD Routine 05/14/2025 8: 16 PM EDT CHEST PHYSIOTHERAPY Routine 05/14/2025 8 :00 PM EDT POCT GLUCOSE BLOOD Routine 05/14/2025 6: 03 PM EDT POCT GLUCOSE BLOOD Routine 05/14/2025 4: 00 PM EDT POCT GLUCOSE BLOOD Routine 05/14/2025 2: 05 PM EDT CHEST PHYSIOTHERAPY Routine 05/14/2025 2 :01 PM EDT POCT GLUCOSE BLOOD Routine 05/14/2025 12 :58 PM EDT POCT GLUCOSE BLOOD Routine 05/14/2025 12 :00 PM EDT POCT GLUCOSE BLOOD Routine 05/14/2025 11 :08 AM EDT CULTURE SPUTUM Routine 05/14/2025 10:06 AM EDT POCT GLUCOSE BLOOD Routine 05/14/2025 10 :02 AM EDT POCT GLUCOSE BLOOD Routine 05/14/2025 9: 03 AM EDT VENTILATOR, ADULT Routine 05/14/2025 8:0 2 AM EDT CHEST PHYSIOTHERAPY Routine 05/14/2025 8 :02 AM EDT POCT GLUCOSE BLOOD Routine 05/14/2025 8: 02 AM EDT POCT GLUCOSE BLOOD Routine 05/14/2025 7: 04 AM EDT XR CHEST 1 VIEW STAT 05/14/2025 6:10 AM EDT POCT GLUCOSE BLOOD Routine 05/14/2025 5: 50 AM EDT CBC WITH AUTO DIFFERENTIAL Routine 05/14/2025 4:13 AM EDT CBC AND DIFFERENTIAL Routine 05/14/2025 4:13 AM EDT PROCALCITONIN Routine 05/14/2025 4:13 AM EDT PHOSPHORUS Routine 05/14/2025 4:13 AM EDT MAGNESIUM Routine 05/14/2025 4:13 AM EDT CALCIUM, IONIZED Routine 05/14/2025 4:13 AM EDT BASIC METABOLIC PANEL Routine 05/14/2025 4:13 AM EDT POCT GLUCOSE BLOOD Routine 05/14/2025 4: 06 AM EDT VENTILATOR, ADULT Routine 05/14/2025 3:2 8 AM EDT POCT GLUCOSE BLOOD Routine 05/13/2025 11 :49 PM EDT POCT GLUCOSE BLOOD Routine 05/13/2025 8: 36 PM EDT CHEST PHYSIOTHERAPY Routine 05/13/2025 8 :00 PM EDT POCT GLUCOSE BLOOD Routine 05/13/2025 5: 43 PM EDT LACTATE, WITH REFLEX Timed 05/13/2025 4:52 PM EDT PROTHROMBIN TIME WITH INR STAT 05/13/2025 4:52 PM EDT XR CHEST 1 VIEW STAT 05/13/2025 4:50 PM EDT ADJUST ENDOTRACHEAL TUBE Routine 05/13/2025 4:48 PM EDT MRSA PCR Routine 05/13/2025 4:34 PM EDT DRUG ABUSE SCREEN 8A PANEL, URINE Routine 05/13/2025 2:51 PM EDT LEGIONELLA ANTIGEN URINE, EIA Routine 05/13/2025 2:51 PM EDT CHEST PHYSIOTHERAPY Routine 05/13/2025 2 :04 PM EDT CHEST PHYSIOTHERAPY Routine 05/13/2025 2 :04 PM EDT CHEST PHYSIOTHERAPY Routine 05/13/2025 2 :04 PM EDT ECG 12-LEAD Routine 05/13/2025 1:56 PM EDT THYROID STIMULATING HORMONE WITH REFLEX TO FREE T4 AND FREE T3 Add-On 05/13/2025 1:51 PM EDT TRIGLYCERIDES Timed 05/13/2025 1:51 PM EDT CULTURE BLOOD STAT 05/13/2025 1:51 PM EDT CULTURE BLOOD STAT 05/13/2025 1:51 PM EDT LACTATE, WITH REFLEX STAT 05/13/2025 1:46 PM EDT TROPONIN I HIGH SENSITIVITY STAT 05/13/2025 1:46 PM EDT RESPIRATORY VIRUS PANEL MOLECULAR STUDY STAT 05/13/2025 1:46 PM EDT XR CHEST 1 VIEW STAT 05/13/2025 1:42 PM EDT ARTERIAL BLOOD GAS STAT 05/13/2025 1: 37 PM EDT VENTILATOR, ADULT Routine 05/13/2025 1:2 9 PM EDT VENTILATOR, ADULT Routine 05/13/2025 1:2 9 PM EDT POCT GLUCOSE BLOOD Routine 05/13/2025 1: 16 PM EDT PHOSPHORUS Add-On 05/13/2025 1:13 PM EDT MAGNESIUM Add-On 05/13/2025 1:13 PM EDT PROCALCITONIN Add-On 05/13/2025 1:13 PM EDT CBC WITH AUTO DIFFERENTIAL STAT 05/13/2025 1:13 PM EDT COMPREHENSIVE METABOLIC PANEL STAT 05/13/2025 1:13 PM EDT CBC AND DIFFERENTIAL STAT 05/13/2025 1:13 PM EDT [facility] CR[facility] 30-74 MINUTES Routine 05/13/2025 12:54 PM EDT from Last 3 Months Results * ECG-Annotated (05/19/2025) us Provider Onbase MD ECG ORDERABLES Final Result * (ABNORMAL) POCT Glucose, blood (05/18/2025 7:44 AM EDT) Only the most recent of40 resultswithin the time period is included. Glucose POCT 128(H) 70 - 100 mg/dL 05/18/2025 7:57 AM EDT [facility] Blood Capillary blood specimen / Unknown 05/18/2025 7:44 AM EDT 05/18/2025 8:01 AM EDT Corbin Santiago MD LAB POINT OF CARE TE ST DOCKED DEVICE UNSOLICITED RESULTS Final Result [facility] [address] [place] [address], [place] [phone] * (ABNORMAL) CBC auto differential (05/17/2025 3:33 AM EDT) Only the most recent of5 resultswithin the time period is included. WBC 13.3(H) 4.8 - 10.8 K/[facility] HEMETOLOGY METHOD 05/17/2025 4:07 AM EDT [facility] RBC 4.70 4.50 - 5.50 M/[facility] LAB HEMETOLOGY METHOD 05/17/2025 4:07 AM EDT [facility] Hemoglobin 13.2(L) 13.5 - 17.5 g/dL LAB HEMETOLOGY METHOD 05/17/2025 4:07 AM [facility] Hematocrit 40.6(L) 42.0 - 54.0 % LAB HEMETOLOGY METHOD 05/17/2025 4:07 AM [facility] MCV 86.9 79.0 - 98.0 FL LAB HEMETOLOGY METHOD 05/17/2025 4:07 AM [facility] MCH 28.3 27.0 - 32.0 pcg LAB HEMETOLOGY METHOD 05/17/2025 4:07 AM [facility] MCHC 32.5 32.0 - 37.0 g/dL LAB HEMETOLOGY METHOD 05/17/2025 4:07 AM [facility] RDW 11.6 11.0 - 15.0 % LAB HEMETOLOGY METHOD 05/17/2025 4:07 AM [facility] Platelets 198 130 - 400 K/mcL LAB HEMETOLOGY METHOD 05/17/2025 4:07 AM [facility] MPV 11.0 7.0 - 11.0 FL LAB HEMETOLOGY METHOD 05/17/2025 4:07 AM [facility] NRBC 0.0 <1.0 % LAB HEMETOLOGY METHOD 05/17/2025 4:07 AM [facility] NRBC Absolute 0.00 <0.10 K/mcL LAB HEMETOLOGY METHOD 05/17/2025 4:07 AM [facility] Neutrophils Relative 82.4 % LAB HEMETOLOGY METHOD 05/17/2025 4:07 AM [facility] Lymphocytes Relative 9.9 % LAB HEMETOLOGY METHOD 05/17/2025 4:07 AM [facility] Monocytes Relative 6.2 % LAB HEMETOLOGY METHOD 05/17/2025 4:07 AM EDT [facility] Eosinophils Relative 0.0 % LAB HEMETOLOGY METHOD 05/17/2025 4:07 AM [facility] Basophils Relative 0.2 % LAB HEMETOLOGY METHOD 05/17/2025 4:07 AM EDT [facility] Immature Granulocytes Relative 1.3 % LAB HEMETOLOGY METHOD 05/17/2025 4:07 AM EDT [facility] Neutrophils Absolute 10.99(H) 1.50 - 7.00 K/mcL LAB HEMETOLOGY METHOD 05/17/2025 4:07 AM [facility] Lymphocytes Absolute 1.32 1.00 - 5.00 K/mcL LAB HEMETOLOGY METHOD 05/17/2025 4:07 AM [facility] Monocytes Absolute 0.83 0.20 - 1.00 K/mcL LAB HEMETOLOGY METHOD 05/17/2025 4:07 AM [facility] Eosinophils Absolute 0.00 0.00 - 0.50 K/mcL LAB HEMETOLOGY METHOD 05/17/2025 4:07 AM [facility] Basophils Absolute 0.02 0.00 - 0.20 K/mcL LAB HEMETOLOGY METHOD 05/17/2025 4:07 AM T [facility] Immature Granulocytes Absolute 0.17(H) 0.00 - 0.03 K/mcL LAB HEMETOLOGY METHOD 05/17/2025 4:07 AM [facility] Blood Blood sample taken from central line / Unknown Existing Catheter / Unknown 05/17/2025 3:33 AM EDT 05/17/2025 4:00 AM EDT us Kristen Campuzano NP LAB BLOOD ORDERABLES Final Resul t [facility] [address] [place] [address], [place] [phone] * Phosphorus (05/17/2025 3:33 AM EDT) Only the most recent of5 resultswithin the time period is included. Phosphorus 4.1 2.5 - 4.5 mg/dL LAB CHEMISTRY METHOD 05/17/2025 4:31 AM EDT [facility] Blood Blood sample taken from central line / Unknown Existing Catheter / Unknown 05/17/2025 3:33 AM EDT 05/17/2025 4:00 AM EDT us Kristen Campuzano NP LAB BLOOD ORDERABLES Final Resul t Performing Organization Address [facility]/ZIP Co de Phone Number [facility] [address] [place] [address], [place] [phone] * (ABNORMAL) Magnesium (05/17/2025 3:33 AM EDT) Only the most recent of5 resultswithin the time period is included. Magnesium 2.7(H) 1.9 - 2.6 mg/dL LAB CHEMISTRY METHOD 05/17/2025 4:31 AM EDT [facility] Blood Blood sample taken from central line / Unknown Existing Catheter / Unknown 05/17/2025 3:33 AM EDT 05/17/2025 4:00 AM EDT us Kristen Campuzano NP LAB BLOOD ORDERABLES Final Resul t [facility] [address] [place] [address], [place] [phone] * (ABNORMAL) Hemoglobin A1c (05/17/2025 3:33 AM EDT) Hemoglobin A1C 7.6(H) <6.5 % LAB CHEMISTRY METHOD 05/18/2025 10:47 AM EDT [facility] Mean Bld Glu Estim. 171 mg/dL LAB CHEMISTRY METHOD 05/18/2025 10:47 AM EDT [facility] Blood Blood sample taken from central line / Unknown Existing Catheter / Unknown 05/17/2025 3:33 AM EDT 05/17/2025 4:00 AM EDT Corbin Santiago MD LAB BLOOD ORDERABLES Final Re sult Performing Organization Address City/[facility]/ZIP Co de Phone Number [facility] [address] [place] [address], [place] [phone] * Calcium, ionized (05/17/2025 3:33 AM EDT) Only the most recent of4 resultswithin the time period is included. Calcium Ionized 4.55 4.50 - 5.30 mg/dL 05/17/2025 4:06 AM EDT [facility] Blood Blood sample taken from central line / Unknown Existing Catheter / Unknown 05/17/2025 3:33 AM EDT 05/17/2025 4:00 AM EDT Kristen Campuzano NP LAB BLOOD ORDERABLES Final Resul t Performing Organization Address [facility] de Phone Number [facility] [address] [place] [address], [place] [phone] * (ABNORMAL) Basic metabolic panel (05/17/2025 3:33 AM EDT) Only the most recent of4 resultswithin the time period is included. Sodium 141 133 - 145 mmol/L LAB CHEMISTRY METHOD 05/17/2025 4:31 AM EDT [facility] Potassium 3.7 3.5 - 5.5 mmol/L LAB CHEMISTRY METHOD 05/17/2025 4:31 AM EDT [facility] Chloride 104 96 - 110 mmol/L LAB CHEMISTRY METHOD 05/17/2025 4:31 AM [facility] CO2 31 21 - 32 mmol/L LAB CHEMISTRY METHOD 05/17/2025 4:31 AM [facility] Anion Gap 6 3 - 11 LAB CHEMISTRY METHOD 05/17/2025 4:31 AM [facility] Glucose 152(H) 70 - 100 mg/dL LAB CHEMISTRY METHOD 05/17/2025 4:31 AM [facility] BUN 21 5 - 25 mg/dL LAB CHEMISTRY METHOD 05/17/2025 4:31 AM [facility] Creatinine 0.76 0.70 - 1.30 mg/dL LAB CHEMISTRY METHOD 05/17/2025 4:31 AM [facility] eGFR 111 >=60 mL/min/1. 73m2 LAB CHEMISTRY METHOD 05/17/2025 4:31 AM [facility] Comment:Calculation based on the Chronic Kidney Disease Epidemiology Collaboration (CKD-EPI) equation refit without adjustment for race. BUN/Creatinine Ratio 27.6 LAB CHEMISTRY METHOD 05/17/2025 4:31 AM [facility] Calcium 8.9 8.5 - 10.5 mg/dL LAB CHEMISTRY METHOD 05/17/2025 4:31 AM [facility] Blood Blood sample taken from central line / Unknown Existing Catheter / Unknown 05/17/2025 3:33 AM EDT 05/17/2025 4:00 AM EDT us Kristen Campuzano NP LAB BLOOD ORDERABLES Final Resul t [facility] [address] [place] [address], * Procalcitonin (05/16/2025 3:27 AM EDT) Only the most recent of4 resultswithin the time period is included. Procalcitonin 0.08 <=0.16 ng/mL LAB CHEMISTRY METHOD 05/16/2025 9:40 AM EDT [facility] Blood Blood sample taken from central line / Unknown Existing Catheter / Unknown 05/16/2025 3:27 AM EDT 05/16/2025 3:38 AM EDT Narrative [facility] - 05/16/2025 9:40 AM EDT Procalcitonin > 2.00 ng/ml: Procalcitonin Levels above 2.00 ng/ml, on the first day of ICU admission represent a high risk for progression to severe sepsis and/or septic shock. Procalcitonin < 0.50 ng/ml: Procalcitonin levels below 0.50 ng/ml on the first day of ICU admission represent a low risk for progression to severe sepsis and/or septic shock. Concentrations <0.5 ng/mL do not exclude an infection, on account of local ized infections (without systemic signs) which can be associated with such low concentrations, or a systemic infection in its initial stages (<6 hours). Furthermore, increased procalcitonin can occur without infection. PCT concentrations between 0.5 and 2.0 ng/mL should be interpreted taking into account the patient's history. It is recommended to retest PCT within 6-24 hours if any concentrations <2.0 ng/mL are obtained. us Mello Mistry DO LAB BLOOD ORDERABLES Final R esult [facility] [address] [place] [address], * Hepatic function panel (05/16/2025 3:27 AM EDT) Total Protein 6.6 6.0 - 8.0 g/dL LAB CHEMISTRY METHOD 05/16/2025 4:03 AM EDT [facility] Albumin 3.7 3.2 - 5.0 g/dL LAB CHEMISTRY METHOD 05/16/2025 4:03 AM EDT [facility] Total Bilirubin 0.9 0.0 - 1.4 mg/dL LAB CHEMISTRY METHOD 05/16/2025 4:03 AM EDT [facility] Bilirubin, Direct 0.2 0.0 - 0.3 mg/dL LAB CHEMISTRY METHOD 05/16/2025 4:03 AM [facility] Bilirubin, Indirect 0.7 0.0 - 1.1 mg/dL LAB CHEMISTRY METHOD 05/16/2025 4:03 AM EDT [facility] ALT (SGPT) 26 10 - 60 unit/L LAB CHEMISTRY METHOD 05/16/2025 4:03 AM EDT [facility] AST (SGOT) 21 10 - 42 unit/L LAB CHEMISTRY METHOD 05/16/2025 4:03 AM [facility] Alkaline Phosphatase 72 42 - 121 unit/L LAB CHEMISTRY METHOD 05/16/2025 4:03 AM [facility] Blood Blood sample taken from central line / Unknown Existing Catheter / Unknown 05/16/2025 3:27 AM EDT 05/16/2025 3:38 AM EDT us Mello Mistry DO LAB BLOOD ORDERABLES Final R esult [facility] [address] [place] [address], * ECG 12 lead (05/15/2025 8:39 PM EDT) Only the most recent of2 resultswithin the time period is included. Ventricular Rate ECG 124 BPM GEMUSE Atrial Rate 124 BPM GEMUSE P-R Interval 134 ms GEMUSE QRS Duration 86 ms GEMUSE Q-T Interval 328 ms GEMUSE QTc 471 ms GEMUSE P Wave [place] 53 degrees GEMUSE T [place] 17 degrees GEMUSE ECG Interpretation Poor data quality, interpretation may be adversely affected Sinus tachycardia Inferior infarct , age undetermined Anterior infarct , age undetermined Abnormal ECG When compared with ECG of 13-MAY-2025 13:56, Anterior infarct is now Present Nonspecific T wave abnormality now evident in Anterior leads Confirmed by Shawn SLOAN JAMES ([id number]) on 05/15/2025 10:31:12 PM GEMUSE 05/15/2025 8:39 PM EDT 05/15/2025 10:31 PM EDT us Kristen Campuzano TERMINAL GAUGER SUPERVISOR ECG ORDERABLES Final Result GEMUSE * Ammonia (05/15/2025 9:51 AM EDT) Ammonia 28 11 - 35 mcmol/L LAB CHEMISTRY METHOD 05/15/2025 10:41 AM EDT [facility] Blood Blood sample taken from central line / Unknown Venipuncture / Unknown 05/15/2025 9:51 AM EDT 05/15/2025 10:18 AM EDT us Mello Mistry DO LAB BLOOD ORDERABLES Final R esult Performing Organization Address City/[facility]/[place] Co de Phone Number [facility] [address] [place] [address], [place] [phone] * XR Chest 1 View (05/15/2025 5:25 AM EDT) Only the most recent of4 resultswithin the time period is included. Anatomical Region Laterality Modality Body Radiographic Rosemary ging 05/15/2025 6:32 AM EDT Impressions 05/15/2025 6:34 AM EDT No focal pneumonia or alveolar edema. -------- FINAL REPORT -------- Dictated By: Oleg Dominguez Dictated Date: 05/15/2025 06:32 ET Assigned Physician: Oleg Dominguez Reviewed and Electronically Signed By: Oleg Dominguez Signed Date: 05/15/2025 06:34 ET Workstation ID: [id number] Transcribed By: Self Edit Transcribed Date: 05/15/2025 06:32 ET Narrative 05/15/2025 6:34 AM EDT EXAMINATION: CHEST CLINICAL INFORMATION: Respiratory failure COMPARISON: Frontal view 05/14/25 TECHNIQUE: Portable sitting frontal view of the chest FINDINGS: Marked rotation to the right. Numerous devices overlie the patient. The endotracheal tube tip projects approximately 3 cm above the antonia. The enteric tube extends into the abdomen tip not included. The left subclavian approach vascular catheter tip is visualized to the expected junction of SVC with right atrium. The tip is partially obscured. No definite change in the mediastinum or bi. No definite alveolar edema. No dense lobar or segmental consolidation. No significant pleural fluid or pneumothorax. Procedure Note Oleg Dominguez MD - 05/15/2025 EXAMINATION: CHEST CLINICAL INFORMATION: Respiratory failure COMPARISON: Frontal view 05/14/25 TECHNIQUE: Portable sitting frontal view of the chest FINDINGS: Marked rotation to the right. Numerous devices overlie the patient. The endotracheal tube tip projects approximately 3 cm above the antonia.The enteric tube extends into the abdomen tip not included. The leftsubclavian approach vascular catheter tip is visualized to the expectedjunction of SVC with right atrium. The tip is partially obscured. No definite change in the mediastinum or bi. No definite alveolar edema.No dense lobar or segmental consolidation. No significant pleural fluid orpneumothorax. IMPRESSION: No focal pneumonia or alveolar edema. -------- FINAL REPORT -------- Dictated By: Oleg Dominguez Dictated Date: 05/15/2025 06:32 ET Assigned Physician: Oleg Dominguez Reviewed and Electronically Signed By: Oleg Dominguez Signed Date: 05/15/2025 06:34 ET Workstation ID: [id number] Transcribed By: Self Edit Transcribed Date: 05/15/2025 06:32 ET us Mello Mistry DO IMG XR PROCEDURES Final Resu lt * (ABNORMAL) Culture sputum (05/14/2025 10:06 AM EDT) Culture, Sputum Haemophilus parainfluenzae(A) 05/17/2025 2:21 PM EDT [facility] Comment: The organism value for this result has been updated. These results have been appended to the previously preliminary verified report. Beta Lactamase Negative 05/17/2025 2:21 PM EDT [facility] Gram Stain Result Many Polymorphonuclear leukocytes(A) 05/17/2025 2:21 PM EDT [facility] Gram Stain Result No epithelial cells seen(A) 05/17/2025 2:21 PM EDT [facility] Gram Stain Result Moderate Gram positive cocci in clusters(A) 05/17/2025 2:21 PM EDT [facility] Gram Stain Result Moderate Gram positive cocci in pairs and chains(A) 05/17/2025 2:21 PM EDT [facility] Gram Stain Result Few Gram positive bacilli(A) 05/17/2025 2:21 PM EDT [facility] Sputum, aspirated Lung structure / Unknown Non-blood Collection / Unknown 05/14/2025 10:06 AM EDT 05/14/2025 10:19 AM EDT us Mello Mistry DO LAB MICROBIOLOGY - GENERAL O RDERABLES Final Result Performing Organization Address City/[facility]/ZIP Co de Phone Number [facility] [address] [place] [address], [place] [phone] * Lactate, with reflex (05/13/2025 4:52 PM EDT) Only the most recent of2 resultswithin the time period is included. LACTIC ACID 1.8 0.4 - 2.0 mmol/L LAB CHEMISTRY METHOD 05/13/2025 5:55 PM EDT [facility] Blood Venous blood specimen / Unknown Venipuncture / Unknown 05/13/2025 4:52 PM EDT 05/13/2025 5:24 PM EDT us Cherri Garduno DO LAB BLOOD ORDERABLES Final Re sult [facility] [address] [place] [address], * Protime-INR (05/13/2025 4:52 PM EDT) [facility] Protime 12.0 10.6 - 13.9 sec LAB COAGULATION METHOD 05/13/2025 5:36 PM EDT [facility] INR 1.0 LAB COAGULATION METHOD 05/13/2025 5:36 PM EDT [facility] Blood Venous blood specimen / Unknown Venipuncture / Unknown 05/13/2025 4:52 PM EDT 05/13/2025 5:24 PM EDT us Cherri Garduno DO LAB BLOOD ORDERABLES Final Re sult Performing Organization Address City/[facility]/ZIP Co de Phone Number [facility] [address] [place] [address], * MRSA molecular study (05/13/2025 4:34 PM EDT) [facility] MRSA Screen PCR Not Detected Not Detected LAB MICROBIOLOGY METHOD 05/13/2025 6:08 PM EDT [facility] Swab Both anterior nares / Unknown Non-blood Collection / Unknown 05/13/2025 4:34 PM EDT 05/13/2025 4:48 PM EDT us Mello Mistry DO LAB MICROBIOLOGY - GENERAL O RDERABLES Final Result [facility] [address] [place] [address], * (ABNORMAL) Drug abuse screen 8a panel, urine (05/13/2025 2:51 PM EDT) [facility] Amphetamine Screen, Ur Negative Negative LAB CHEMISTRY METHOD 4:34 PM EDT [facility] Comment:Certain OTC medicati ons containing ephedrine, phenylephrine, pseudoephedrine and phenylpropanolamine can cause false positive results. Barbiturate Screen, Ur Negative Negative LAB CHEMISTRY METHOD 5 4:34 PM EDT [facility] Benzodiazepine Screen, Ur Negative Negative LAB CHEMISTRY METHOD 5 4:34 PM EDT [facility] Cocaine Screen, Ur Negative Negative LAB CHEMISTRY METHOD 5 4:34 PM EDT [facility] Opiate Screen, Ur Negative Negative LAB CHEMISTRY METHOD 5 4:34 PM EDT [facility] Cannabinoid (THC) Screen, Ur Positive(A ) Negative LAB CHEMISTRY METHOD 5 4:34 PM EDT [facility] Comment:Specimens from patie nts taking pantoprazole sodium (Protonix) have been shown to produce false positive results. Oxycodone Screen, Ur Negative Negative LAB CHEMISTRY METHOD 5 4:34 PM EDT [facility] Fentanyl, Ur Negative Negative LAB CHEMISTRY METHOD 5 4:34 PM EDT [facility] Urine Urine specimen obtained by clean catch procedure / Unknown Non-blood Collection / Unknown 05/13/2025 2:51 PM EDT 05/13/2025 4:04 PM EDT Narrative [facility] - 05/13/2025 4:34 PM EDT Assay cutoffs: Amphetamines 1000 ng/mL Barbiturates 200 ng/mL Benzodiazepines 200 ng/mL Cocaine 300 ng/mL Fentanyl 1 ng/mL Opiates 300 ng/mL Oxycodone 100 ng/mL THC 50 ng/mL Semi-quantitative assay for screening purposes only. Unconfirmed screening result should not be used for non-medical purposes. *ALTERNATE METHOD CONFIRMATION DONE UPON REQUEST ONLY* Mello Mistry DO LAB URINE ORDERABLES Final R esult [facility] [address] [place] [address], [place] [phone] * Legionella antigen urine, EIA (05/13/2025 2:51 PM EDT) [facility] Legionella Antigen, Ur Negative Negative 05/13/2025 4:44 PM EDT [facility] Urine Urine specimen obtained by clean catch procedure / Unknown Non-blood Collection / Unknown 05/13/2025 2:51 PM EDT 05/13/2025 4:04 PM EDT Narrative [facility] - 05/13/2025 4:44 PM EDT Negative for Legionella pneumophilia serogroup 1 antigen. This presumptive result suggests no current or recent infection due to L. pneumophilia serogroup 1. Culture is recommended if Legionella infection is till suspected, as other serogroups and species of Legionella are not detected by this test. Mello Mistry DO LAB URINE ORDERABLES Final R esult [facility] [address] [place] [address], [place] [phone] * Thyroid stimulating hormone with reflex to free t4 and free t3 (05/13/2025 1:51 PM EDT) [facility] TSH 2.64 0.40 - 4.00 mcIU/mL LAB CHEMISTRY METHOD 05/13/2025 3:07 PM EDT [facility] Blood Venous blood specimen / Unknown Venipuncture / Unknown 05/13/2025 1:51 PM EDT 05/13/2025 1:59 PM EDT Mello Mistry DO LAB BLOOD ORDERABLES Final R esult [facility] [address] [place] [address], [place] [phone] * Culture blood (05/13/2025 1:51 PM EDT) Only the most recent of2 resultswithin the time period is included. [facility] Culture, Blood No growth at 5 days LAB MICROBIOLOGY METHOD 05/18/2025 3:01 PM EDT [facility] Blood Venous blood specimen / Unknown Venipuncture / Unknown 05/13/2025 1:51 PM EDT 05/13/2025 2:00 PM EDT [facility] MICROBIOLOGY - GENERAL OR DERABLES Final Result Performing Organization Address [facility]/ZIP Co de Phone Number [facility] [address] [place] [address], [place] [phone] * Triglyceride Monitoring (05/13/2025 1:51 PM EDT) [facility] Triglycerides 132 0 - 150 mg/dL LAB CHEMISTRY METHOD 05/13/2025 2:26 PM EDT [facility] Blood Venous blood specimen / Unknown Venipuncture / Unknown 05/13/2025 1:51 PM EDT 05/13/2025 1:59 PM EDT Cherri Garduno LAB BLOOD ORDERABLES Final Re sult Performing Organization Address [facility]/ZIP Co de Phone Number [facility] [address] [place] [address], [place] [phone] * (ABNORMAL) Respiratory virus panel molecular study (05/13/2025 1:46 PM EDT) [facility] Adenovirus Detection by PCR Not Detected Not Detected LAB MICROBIOLOGY METHOD 05/13/2025 2:59 PM EDT [facility] Influenza A PCR Not Detected Not Detected LAB MICROBIOLOGY METHOD 05/13/2025 2:59 PM EDT [facility] Influenza B PCR Not Detected Not Detected LAB MICROBIOLOGY METHOD 05/13/2025 2:59 PM EDT [facility] Coronavirus 229E Not Detected Not Detected LAB MICROBIOLOGY METHOD 05/13/2025 2:59 PM EDT [facility] Coronavirus HKU1 Not Detected Not Detected LAB MICROBIOLOGY METHOD 05/13/2025 2:59 PM EDT [facility] Coronavirus OC43 Not Detected Not Detected LAB MICROBIOLOGY METHOD 05/13/2025 2:59 PM EDT [facility] Coronavirus NL63 Not Detected Not Detected LAB MICROBIOLOGY METHOD 05/13/2025 2:59 PM EDT [facility] Parainfluenza Virus 1 Not Detected Not Detected LAB MICROBIOLOGY METHOD 05/13/2025 2:59 PM EDT [facility] Parainfluenza Virus 2 Not Detected Not Detected LAB MICROBIOLOGY METHOD 05/13/2025 2:59 PM EDT [facility] Parainfluenza Virus 3 Not Detected Not Detected LAB MICROBIOLOGY METHOD 05/13/2025 2:59 PM EDT [facility] Parainfluenza Virus 4 Not Detected Not Detected LAB MICROBIOLOGY METHOD 05/13/2025 2:59 PM EDT [facility] RSV PCR Not Detected Not Detected LAB MICROBIOLOGY METHOD 05/13/2025 2:59 PM EDT [facility] Human Metapneumovirus A and B Not Detected Not Detected LAB MICROBIOLOGY METHOD 05/13/2025 2:59 PM EDT [facility] Rhinovirus/Entero virus Detected(A ) Not Detected LAB MICROBIOLOGY METHOD 05/13/2025 2:59 PM EDT [facility] Bordetella pertussis Not Detected Not Detected LAB MICROBIOLOGY METHOD 05/13/2025 2:59 PM EDT [facility] Bordetella parapertussis Not Detected Not Detected LAB MICROBIOLOGY METHOD 05/13/2025 2:59 PM EDT [facility] Mycoplasma pneumo by PCR Not Detected Not Detected LAB MICROBIOLOGY METHOD 05/13/2025 2:59 PM EDT [facility] Chlamydia pneumoniae Not Detected Not Detected LAB MICROBIOLOGY METHOD 05/13/2025 2:59 PM EDT [facility] SARS COV-2 Not Detected Not Detected LAB MICROBIOLOGY METHOD 05/13/2025 2:59 PM EDT [facility] Swab Both anterior nares / Unknown Non-blood Collection / Unknown 05/13/2025 1:46 PM EDT 05/13/2025 2:00 PM EDT [facility] - 05/13/2025 2:59 PM EDT Testing was performed using the [employer] Respiratory Pathogen PCR Assay. All results must be correlated with the clinical findings. Results should not be used as the sole basis for diagnosis. False Negative results may occur from the presence of sequence variants in the region targeted by the assay or the presence of inhibitors. Results may be affected by concurrent antiviral/antimicrobial therapy or levels of organisms that are below the limit of detection. [facility] MICROBIOLOGY - GENERAL OR DERABLES Final Result Performing Organization Address City/State/[place] Co de Phone Number [facility] [address] [place] [address], [place] [phone] * Troponin I high sensitivity (05/13/2025 1:46 PM EDT) [facility] High Sensitivity Troponin I 12 <=79 ng/L LAB CHEMISTRY METHOD 05/13/2025 2:25 PM EDT [facility] Blood Venous blood specimen / Unknown Venipuncture / Unknown 05/13/2025 1:46 PM EDT 05/13/2025 2:01 PM EDT [facility] - 05/13/2025 2:25 PM EDT High levels of biotin in samples may falsely decrease hsTroponin values. Use caution when interpreting hsTroponin results in patients taking biotin who exhibit renal impairment (eGFR <60) or in patients taking more than 20 mg/day of biotin. [facility] BLOOD ORDERABLES Final Re sult Performing Organization Address City/[facility]/[place] Co de Phone Number [facility] [address] [place] [address], [place] [phone] * (ABNORMAL) Arterial blood gas (05/13/2025 1:37 PM EDT) pH, Arterial 7.42 7.35 - 7.45 pH 05/13/2025 2:36 PM EDT [facility] pCO2, Arterial 44 35 - 45 mmHg 05/13/2025 2:36 PM EDT [facility] pO2, Arterial 82 80 - 100 mmHg 05/13/2025 2:36 PM EDT [facility] HCO3, Arterial 27.5(H) 22.0 - 26.0 mmol/L 05/13/2025 2:36 PM EDT [facility] O2 Sat, Arterial 97.9 95.0 - 98.0 % 05/13/2025 2:36 PM EDT [facility] Base Excess, Arterial 3.4(H) -2.0 - 2.0 mmol/L 05/13/2025 2:36 PM EDT [facility] Guicho Test Pass Pass, Unresponsi ve, Line 05/13/2025 2:36 PM EDT [facility] FIO2 35.00 05/13/2025 2:36 PM EDT [facility] Blood Arterial blood specimen / Unknown Arterial Puncture / Unknown 05/13/2025 1:37 PM EDT 05/13/2025 1:47 PM EDT us Cherri Garduno DO LAB BLOOD ORDERABLES Final Re teresa [facility] [address] [place] [address], [place] [phone] * (ABNORMAL) Comprehensive metabolic panel (05/13/2025 1:13 PM EDT) Sodium 137 133 - 145 mmol/L LAB CHEMISTRY METHOD 05/13/2025 2:20 PM [facility] Potassium 4.1 3.5 - 5.5 mmol/L LAB CHEMISTRY METHOD 05/13/2025 2:20 PM [facility] Comment:Hemolysis present Chloride 103 96 - 110 mmol/L LAB CHEMISTRY METHOD 05/13/2025 2:20 PM [facility] CO2 24 21 - 32 mmol/L LAB CHEMISTRY METHOD 05/13/2025 2:20 PM [facility] Anion Gap 10 3 - 11 LAB CHEMISTRY METHOD 05/13/2025 2:20 PM [facility] Glucose 167(H) 70 - 100 mg/dL LAB CHEMISTRY METHOD 05/13/2025 2:20 PM [facility] BUN 14 5 - 25 mg/dL LAB CHEMISTRY METHOD 05/13/2025 2:20 PM [facility] Creatinine 1.12 0.70 - 1.30 mg/dL LAB CHEMISTRY METHOD 05/13/2025 2:20 PM [facility] eGFR 81 >=60 mL/min/1. 73m2 LAB CHEMISTRY METHOD 05/13/2025 2:20 PM [facility] Comment:Calculation based on the Chronic Kidney Disease Epidemiology Collaboration (CKD-EPI) equation refit without adjustment for race. BUN/Creatinine Ratio 12.5 LAB CHEMISTRY METHOD 05/13/2025 2:20 PM [facility] Calcium 10.4 8.5 - 10.5 mg/dL LAB CHEMISTRY METHOD 05/13/2025 2:20 PM [facility] AST (SGOT) 32 10 - 42 unit/L LAB CHEMISTRY METHOD 05/13/2025 2:20 PM [facility] Comment:Hemolysis present ALT (SGPT) 39 10 - 60 unit/L LAB CHEMISTRY METHOD 05/13/2025 2:20 PM EDT [facility] Alkaline Phosphatase 93 42 - 121 unit/L LAB CHEMISTRY METHOD 05/13/2025 2:20 PM EDT [facility] Total Protein 8.7(H) 6.0 - 8.0 g/dL LAB CHEMISTRY METHOD 05/13/2025 2:20 PM EDT [facility] Albumin 4.9 3.2 - 5.0 g/dL LAB CHEMISTRY METHOD 05/13/2025 2:20 PM EDT [facility] Total Bilirubin 0.8 0.0 - 1.4 mg/dL LAB CHEMISTRY METHOD 05/13/2025 2:20 PM EDT [facility] Blood Venous blood specimen / Unknown Venipuncture / Unknown 05/13/2025 1:13 PM EDT 05/13/2025 1:47 PM EDT Deneen Friedman MD LAB BLOOD ORDERABLES Final Resul t [facility] [address] [place] [address], * [facility] CR[facility]ICAL [facility] 30-74 MINUTES (05/13/2025 12:54 PM EDT) Narrative Cherri Garduno DO - 05/13/2025 12:54 PM EDT Cherri Garduno DO 05/23/2025 11:42 PM Critical Care Performed by: Cherri Garduno DO Authorized by: Cherri Garduno DO Critical care provider statement: Critical care time (minutes): 80 Total face to face critical care time (minutes): 55 Critical care was necessary to treat or prevent imminent or life-threatening deterioration of the following conditions: Respiratory failure Critical care was time spent personally by me on the following activities: Evaluation of patient's response to treatment, discussions with consultants, ordering and review of radiographic studies, ventilator management, re-evaluation of patient's condition, pulse oximetry and examination of patient Face to face critical care was time spent personally by me on the following activities: Examination of patient, evaluation of patient's response to treatment, pulse oximetry, ventilator management, review of old charts, ordering and review of laboratory studies and discussions with consultants Care discussed with: admitting provider Cherri Garduno DO IN CLINIC/BEDSIDE ORDERABLES Final Result from Last 3 Months Additional Health Concerns Infection Onset Date Last Indicated Enterovirus 05/13/2025 05/13/2025 Rhinovirus 05/13/2025 05/13/2025 Insurance MEDICARE [facility] MEDICARE Member Subscriber Plan / Payer (Ef fective 2024-Present) Name:SHARAN BARTON Relation to Subscriber:Self Name:Sharan Barton Payer ID:[id number] Group ID:[id number] Type:Not on file Address: [address] [place] [id number] Advance Directives Documents on File Type Date Recorded Patient Inpatient Nursing Aide Expl anation Advance Directives and Living Will 10/26/2024 3:40 PM Agnes Barrios Health Care Proxy * Full Code - Default (Latest Code Status on File) Date Activated Date Inactivated Comments 05/13/2025 2:01 PM 05/18/2025 1:22 PM This is orde r is used when code status has not been discussed with the patient, or code status is otherwise unknown/unconfirmed To update the patient's code status, place a code status order. Do not modify or discontinue any currently active code status orders. * Full Code - Default Date Activated Date Inactivated Comments 10/28/2024 8:12 [...] Name Relationship Healthcare Agent Relationshi p Communication [facility] Care Agent Care Teams Self Storage Manager Relationship Specialty Start Date End Date Polo Noriega MD [address] [place] [phone] PCP - General Internal Medicine 10/26/24
== END 2025-05-26 12:00 | disposition home or self-care (01) ==
LOC: HO.HMCFM 11:22
PROVIDERS: PCP Nurse Practitioner Family; Visit Provider Nurse Practitioner Family
DX: I15.2 Hypertension secondary to endocrine disorders (principal); E11.8 Type 2 diabetes mellitus with unspecified complications; E84.9 Cystic fibrosis, unspecified; Z09 Encounter for follow-up examination after completed treatment for conditions other than malignant neoplasm; Z98.890 Other specified postprocedural states

== ENCOUNTER → 2025-05-26 11:21 | Outpatient (BNVA) | payer OTHER, SELFPAY | PROVIDERS: PCP Nurse Practitioner Family; Visit Provider Nurse Practitioner Family | DX: E11.9 Type 2 diabetes mellitus without complications (principal); I10 Essential (primary) hypertension; E84.9 Cystic fibrosis, unspecified; J96.90 Respiratory failure, unspecified, unspecified whether with hypoxia or hypercapnia; I15.2 Hypertension secondary to endocrine disorders; Z09 Encounter for follow-up examination after completed treatment for conditions other than malignant neoplasm; Z98.890 Other specified postprocedural states | CPT/HCPCS: 96127; 99212 ==

== ENCOUNTER 2025-06-23 07:58 | Outpatient (AMB) | payer OTHER, SELFPAY ==
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
[2025-06-23 08:13] VITALS: BMI 34.0
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
== END 2025-06-23 08:54 | disposition home or self-care (01) ==
LOC: HO.HGI 07:59
PROVIDERS: PCP Nurse Practitioner Family; Visit Provider Nurse Practitioner Family
DX: Z12.11 Encounter for screening for malignant neoplasm of colon (principal); Z80.0 Family history of malignant neoplasm of digestive organs; K21.9 Gastro-esophageal reflux disease without esophagitis; E84.9 Cystic fibrosis, unspecified; E11.8 Type 2 diabetes mellitus with unspecified complications
CPT/HCPCS: 99204

== ENCOUNTER → 2025-06-23 07:58 | Outpatient (BNVA) | payer OTHER, SELFPAY | PROVIDERS: PCP Nurse Practitioner Family; Visit Provider Nurse Practitioner Family | DX: Z12.11 Encounter for screening for malignant neoplasm of colon (principal); K21.9 Gastro-esophageal reflux disease without esophagitis; E84.9 Cystic fibrosis, unspecified; E11.8 Type 2 diabetes mellitus with unspecified complications; Z87.19 Personal history of other diseases of the digestive system | CPT/HCPCS: 99202 ==

== ENCOUNTER 2025-06-24 08:33 | Outpatient (REF) | payer OTHER, SELFPAY ==
--- OUTSIDE RECORDS SUMMARY | 2025-06-24 09:25 | XMS_ITS | Clinical Summary ---
Author Organization [facility] Address [address] [place] [address] Phone Care Team Providers Care Tubing Drier Name Role Phone Polo Noriega MD Primary Care Provider [phone] Allergies No known active allergies Medications insulin aspart (NovoLOG FlexPen) 100 unit/mL (3 mL) injection pen 3 times a day before meals Blood sugar level <150mg/dl -0 units 150-199mg/dl - 1 units 200-249 mg/dl - 2 units 250-299 mg/dl - 3 units 300-349 mg/dl - 4 units 350-399 mg/dl - 5 units notify provider if >400 mg/dl 10/28/19 25 Active Additional Information Patient taking differently: 4 Units subcutaneous 3 times daily before meals, (No instructions reported), Reported on 05/13/2025 Ventolin HFA 90 mcg/actuation inhaler 12/09/19 25 Active famotidine (PEPCID) 20 mg tablet Take 1 tablet (20 mg total) by mouth at bedtime. at bedtime Active ipratropium-albu teroL (DUONEB) 0.5-2.5 mg/3 mL nebulizer solution Inhale by mouth. 11/04/19 25 Active lidocaine 4 % patch Apply topically 1 (one) time each day at the same time. 11/16/19 25 Active melatonin 3 mg tablet Take by mouth. 11/07/19 25 Active BD Ultra-Fine Mini Pen Needle 31 gauge x 3/16 needle 12/19/19 25 Active glucose 4 gram chewable tablet CHEW 4 TABLETS EVERY 15 MINUTES NEEDED FOR HYPOGLYCEMIA 03/22/20 Active Pulmozyme 1 mg/mL nebulizer solution Take 2.5 mg by nebulization 1 (one) time each day. 03/25/20 Active gabapentin (NEURONTIN) 300 mg capsule Take 1 capsule (300 mg total) by mouth at bedtime. 03/12/20 Active Baqsimi 3 mg/actuation nasal spray INHALE 3MG ONCE NEEDED FOR HYPOGLYCEMIA 03/22/20 Active metFORMIN XR (GLUCOPHAGE-XR) 500 mg 24 hr tablet Take 1 tablet (500 mg total) by mouth 1 (one) time each day in the evening. 04/19/20 Active Hyper-Gillian 7 % solution for nebulization nebulizer solution Take 4 mL by nebulization 2 (two) times a day. 03/24/20 Active albuterol 2.5 mg /3 mL (0.083 %) nebulizer solution Inhale 3 mL by mouth every 6 (six) hours if needed for wheezing. 03/24/20 Active lisinopriL (PRINIVIL,ZESTRI L) 5 mg tablet Take 2 tablets (10 mg total) by mouth 1 (one) time each day. 60 each 2 05/18/20 25 025 Active fluticasone-umec lidinium-vilante rol (Trelegy Ellipta) 100-62.5-25 mcg inhaler Inhale 1 puff (100 mcg total) by mouth 1 (one) time each day. Rinse mouth with water after use to reduce aftertaste and incidence of candidiasis. Do not swallow. 1 each 05/18/20 25 026 Active Semglee,insulin glarg-yfgn,Pen 100 unit/mL (3 mL) injection Inject 30 Units under the skin 1 (one) time each day in the morning. 15 mL 05/18/20 25 Active cholecalciferol (VITAMIN D-3) 1,250 mcg (50,000 unit) capsule Take 1,250 mcg by mouth 1 (one) time per week. 03/24/20 25 025 predniSONE (DELTASONE) 20 mg tablet Take 2 [...] each day for 3 days. 15 each 05/18/20 25 025 guaiFENesin (ROBITUSSIN) 100 mg/5 mL liquid Take 20 mL (400 mg total) by mouth every 6 (six) hours for 10 days. 120 mL 05/18/20 025 Active Problems Problem Noted Date Diagnosed Date Acute pancreatitis without i nfection or necrosis, unspecified pancreatitis type 10/29/2024 Pancreatitis 10/28/2024 Pneumonia 10/20/2024 Cystic fibrosis ([facility] V24, [facility] V28) 10/20 Resolved Problems Problem Noted Date Diagnosed Date Resolved Date Acute respiratory failure, u nspecified whether with hypoxia or hypercapnia ([facility] V24, [facility] V28) 05/13/2025 05/18/2025 Acute kidney injury ([facility] V24) 10/24/2024 10/26/2024 Septic shock ([facility] V24, [facility] V28) 10/22/2024 10/26/2024 Acute respiratory failure wi th hypoxia ([facility] V24, [facility] V28) 10/20/2024 10/26/2024 Endotracheally intubated 10/20/202410/2024 On mechanically assisted garfield tilation ([facility] V24, [facility] V28) 10/20/2024 10/26/2024 Arterial hypotension 10/20/2024 025 Lactic acidosis 10/20/2024 10/26/2024 Encounters Date Type Department Care Team Description 05/13/2025 1:00 PM EDT - 05/18/2025 11:16 AM EDT Hospital Encounter [facility] [address] [place] [id number] Cherri Garduno DO Levrault, Richard, DO Bonacum, Julia T, MD Bukalo, Nermina, MD Bell, Alistair A, MD Acute respiratory failure, unspecified whether with hypoxia or hypercapnia ([facility] V24, [facility]) (Primary Dx); Cystic fibrosis ([facility] [place], [facility] V[facility]) Discharge Disposition: Home-Health Care [facility] 03/24/2025 Telephone Infectious Disease - [address] [place] [address] Kathy Francisco MD from Last 3 Months Surgical History Surgery Date Site/Laterality Comments SHOULDER RT right shoulder surgery BRONCHOSCOPY Medical History Medical History Date Comments Cystic fibrosis ([facility], [facility] V28) diagnosed in his 30s MSSA bacteremia Diabetes mellitus ([facility], [facility] V28) Respiratory failure requirin g intubation ([facility] V24, [facility] V28) 09/2024 Family History Medical History Relation [...] 16 PM EDT CHEST PHYSIOTHERAPY Routine 05/14/2025 8:00 PM EDT POCT GLUCOSE BLOOD Routine 05/14/2025 [...] AND DIFFERENTIAL STAT 05/13/2025 1:13 PM EDT [facility] 30-74 MINUTES Routine 05/13/2025 12:54 PM EDT from Last 3 Months Results * ECG-Annotated (05/19/2025) us Provider Onbase MD ECG ORDERABLES Final Result * (ABNORMAL) POCT Glucose, blood (05/18/2025 7:44 AM EDT) Only the most recent of40 resultswithin the time period is included. [facility] Glucose POCT 128(H) 70 - 100 mg/dL 05/18/2025 7:57 AM EDT [facility] Blood Capillary blood specimen / Unknown 05/18/2025 7:44 AM EDT 05/18/2025 8:01 AM EDT us Corbin Santiago MD LAB POINT OF CARE TE ST DOCKED DEVICE UNSOLICITED RESULTS Final Result [facility] [address] [place] [address], [place] [phone] * (ABNORMAL) CBC auto differential (05/17/2025 3:33 AM EDT) Only the most recent of5 resultswithin the time period is included. WBC 13.3(H) 4.8 - 10.8 K/mcL LAB HEMETOLOGY METHOD 05/17/2025 4:07 AM EDT [facility] RBC 4.70 4.50 - 5.50 M/mcL LAB HEMETOLOGY METHOD 05/17/2025 4:07 AM EDT [facility] Hemoglobin 13.2(L) 13.5 - 17.5 g/dL LAB HEMETOLOGY METHOD 05/17/2025 4:07 AM EDT [facility] Hematocrit 40.6(L) 42.0 - 54.0 % LAB HEMETOLOGY METHOD 05/17/2025 4:07 AM EDT [facility] MCV 86.9 79.0 - 98.0 FL LAB HEMETOLOGY METHOD 05/17/2025 4:07 AM EDT [facility] MCH 28.3 27.0 - 32.0 pcg LAB HEMETOLOGY METHOD 05/17/2025 4:07 AM EDT [facility] MCHC 32.5 32.0 - 37.0 g/dL LAB HEMETOLOGY METHOD [facility]17[facility] RDW 11.6 11.0 - 15.0 % LAB [facility]OLOGY [facility]17[facility]25 [facility] Platelets 198 130 - 400 K/mcL LAB HEMETOLOGY METHOD 05/17/2025 4:[address] [facility] MPV 11.0 7.0 - 11.0 FL LAB HEMETOLOGY METHOD 05/17/2025 4:[address] [facility] NRBC 0.0 <1.0 % LAB HEMETOLOGY METHOD 05/17/2025 4:[address] [facility] NRBC Absolute 0.00 <0.10 K/mcL LAB HEMETOLOGY METHOD 05/17/2025 4:[address] [facility] Neutrophils Relative 82.4 % LAB HEMETOLOGY METHOD 05/17/2025 4:[address] [facility] Lymphocytes Relative 9.9 % LAB HEMETOLOGY METHOD 05/17/2025 4:[address] [facility] Monocytes Relative 6.2 % LAB HEMETOLOGY METHOD 05/17/2025 4:[address] [facility] Eosinophils Relative 0.0 % LAB HEMETOLOGY METHOD 05/17/2025 4:[address] [facility] Basophils Relative 0.2 % LAB HEMETOLOGY METHOD 05/17/2025 4:[address] [facility] Immature Granulocytes Relative 1.3 % LAB HEMETOLOGY METHOD 05/17/2025 4:[address] [facility] Neutrophils Absolute 10.99(H) 1.50 - 7.00 K/mcL LAB HEMETOLOGY METHOD 05/17/2025 4:[address] [facility] Lymphocytes Absolute 1.32 1.00 - 5.00 K/mcL LAB HEMETOLOGY METHOD 05/17/2025 4:[address] [facility] Monocytes Absolute 0.83 0.20 - 1.00 K/mcL LAB HEMETOLOGY METHOD 05/17/2025 4:[address] [facility] Eosinophils Absolute 0.00 0.00 - 0.50 K/mcL LAB HEMETOLOGY METHOD 05/17/2025 4:07 AM EDT [facility] Basophils Absolute 0.02 0.00 - 0.20 K/[facility] LAB HEMETOLOGY METHOD 05/17/2025 4:07 AM EDT [facility] Immature Granulocytes Absolute 0.17(H) 0.00 - 0.03 K/[facility] LAB HEMETOLOGY METHOD 05/17/2025 4:07 AM EDT [facility] Blood Blood sample taken from central line / Unknown Existing Catheter / Unknown 05/17/2025 3:33 AM EDT 05/17/2025 4:00 AM EDT us Kristen Campuzano PATROL SUPERVISOR LAB BLOOD ORDERABLES Final Resul t Performing Organization Address [facility] de Phone Number [facility] [address] [place] [address], [place] [phone] * Phosphorus (05/17/2025 3:33 AM EDT) Only the most recent of5 resultswithin the time period is included. Phosphorus 4.1 2.5 - 4.5 mg/dL LAB CHEMISTRY METHOD 05/17/2025 4:31 AM EDT [facility] Blood Blood sample taken from central line / Unknown Existing Catheter / Unknown 05/17/2025 3:33 AM EDT 05/17/2025 4:00 AM EDT us Kristen Campuzano NP LAB BLOOD ORDERABLES Final Resul t Performing Organization Address City/[facility]/ZIP Co de Phone Number [facility] [address] [place] [address], [place] [phone] * (ABNORMAL) Magnesium (05/17/2025 3:33 AM EDT) Only the most recent of5 resultswithin the time period is included. Magnesium 2.7(H) 1.9 - 2.6 mg/dL LAB CHEMISTRY METHOD 05/17/2025 4:31 AM EDT [facility] Blood Blood sample taken from central line / Unknown Existing Catheter / Unknown 05/17/2025 3:33 AM EDT 05/17/2025 4:00 AM EDT us Kristen Campuzano NP LAB BLOOD ORDERABLES Final Resul t Performing Organization Address [facility]/ZIP Co de Phone Number [facility] [address] [place] [address], [place] [phone] * (ABNORMAL) Hemoglobin A1c (05/17/2025 3:33 AM EDT) Hemoglobin A1C 7.6(H) <6.5 % LAB CHEMISTRY METHOD 05/18/2025 10:47 AM EDT [facility] Mean Bld Glu Estim. 171 mg/dL LAB CHEMISTRY METHOD 05/18/2025 10:47 AM EDT [facility] Blood Blood sample taken from central line / Unknown Existing Catheter / Unknown 05/17/2025 3:33 AM EDT 05/17/2025 4:00 AM EDT us Corbin Santiago MD LAB BLOOD ORDERABLES Final Re sult Performing Organization Address [facility]/ZIP Co de Phone Number [facility] [address] [place] [address], [place] [phone] * Calcium, ionized (05/17/2025 3:33 AM EDT) Only the most recent of4 resultswithin the time period is included. Calcium Ionized 4.55 4.50 - 5.30 mg/dL 05/17/2025 4:06 AM EDT [facility] Blood Blood sample taken from central line / Unknown Existing Catheter / Unknown 05/17/2025 3:33 AM EDT 05/17/2025 4:00 AM EDT us Kristen Justen DAWSON LAB BLOOD ORDERABLES Final Resul t [facility] [address] [place] [address], * (ABNORMAL) Basic metabolic panel (05/17/2025 3:33 AM EDT) Only the most recent of4 resultswithin the time period is included. Sodium 141 133 - 145 mmol/L LAB CHEMISTRY METHOD 05/17/2025 4:[address] [facility] Potassium 3.7 3.5 - 5.5 mmol/L LAB CHEMISTRY METHOD 05/17/2025 4:[address] [facility] Chloride 104 96 - 110 mmol/L LAB CHEMISTRY METHOD 05/17/2025 4:[address] [facility] CO2 31 21 - 32 mmol/L LAB CHEMISTRY METHOD 05/17/2025 4:[address] [facility] Anion Gap 6 3 - 11 LAB CHEMISTRY METHOD 05/17/2025 4:[address] [facility] Glucose 152(H) 70 - 100 mg/dL LAB CHEMISTRY METHOD 05/17/2025 4:[address] [facility] BUN 21 5 - 25 mg/dL LAB CHEMISTRY METHOD 05/17/2025 4:[address] [facility] Creatinine 0.76 0.70 - 1.30 mg/dL LAB CHEMISTRY METHOD 05/17/2025 4:[address] [facility] eGFR 111 >=60 mL/min/1. 73m2 LAB CHEMISTRY METHOD 05/17/2025 4:[address] [facility] Comment:Calculation based on the Chronic Kidney Disease Epidemiology Collaboration (CKD-EPI) equation refit without adjustment for race. BUN/Creatinine Ratio 27.6 LAB CHEMISTRY METHOD 05/17/2025 4:[address] [facility] Calcium 8.9 8.5 - 10.5 mg/dL LAB CHEMISTRY METHOD 05/17/2025 4:31 AM EDT [facility] Blood Blood sample taken from central line / Unknown Existing Catheter / Unknown 05/17/2025 3:33 AM EDT 05/17/2025 4:00 AM EDT us Kristen Campuzano NP LAB BLOOD ORDERABLES Final Resul t [facility] [address] [place] [address], * Procalcitonin (05/16/2025 3:27 AM EDT) Only the most recent of4 resultswithin the time period is included. Procalcitonin 0.08 <=0.16 ng/mL LAB CHEMISTRY METHOD 05/16/2025 9:40 AM EDT [facility] Blood Blood sample taken from central line / Unknown Existing Catheter / Unknown 05/16/2025 3:27 AM EDT 05/16/2025 3:38 AM EDT Narrative [facility] - 05/16/2025 9:40 AM EDT [...] DO LAB BLOOD ORDERABLES Final R esult [facility] [address] [place] [address], [place] [phone] * Hepatic function panel (05/16/2025 3:27 AM EDT) Total Protein 6.6 6.0 - 8.0 g/dL LAB CHEMISTRY METHOD 05/16/2025 4:03 AM EDT [facility] Albumin 3.7 3.2 - 5.0 g/dL LAB CHEMISTRY METHOD 05/16/2025 4:03 AM EDT [facility] Total Bilirubin 0.9 0.0 - 1.4 mg/dL LAB CHEMISTRY METHOD 05/16/2025 4:[address] [facility] Bilirubin, Direct 0.2 0.0 - 0.3 mg/dL LAB CHEMISTRY METHOD 05/16/2025 4:03 AM T [facility] Bilirubin, Indirect 0.7 0.0 - 1.1 mg/dL LAB CHEMISTRY METHOD 05/16/2025 4:[address] [facility] ALT (SGPT) 26 10 - 60 unit/L LAB CHEMISTRY METHOD 05/16/2025 4:[address] [facility] AST (SGOT) 21 10 - 42 unit/L LAB CHEMISTRY METHOD 05/16/2025 4:[address] [facility] Alkaline Phosphatase 72 42 - 121 unit/L LAB CHEMISTRY METHOD 05/16/2025 4:[address] [facility] Blood Blood sample taken from central line / Unknown Existing Catheter / Unknown 05/16/2025 3:27 AM EDT 05/16/2025 3:38 AM EDT Mello Levrault DO LAB BLOOD ORDERABLES Final R esult Performing Organization Address [facility] Co de Phone Number [facility] [address] [place] [address], [place] [phone] * ECG 12 lead (05/15/2025 8:39 PM EDT) Only the most recent of2 resultswithin the time period is included. Ventricular Rate ECG 124 BPM GEMUSE Atrial Rate 124 BPM GEMUSE P-R Interval 134 ms GEMUSE QRS Duration 86 ms GEMUSE Q-T Interval 328 ms GEMUSE QTc 471 ms GEMUSE P Wave [place] 53 degrees GEMUSE T [place] 17 degrees GEMUSE ECG Interpretation Poor data [...] 8:39 PM EDT 05/15/2025 10:31 PM EDT Kristen Campuzano PATROL SUPERVISOR ECG ORDERABLES Final Result Performing Organization Address [facility] de Phone Number GEMUSE * Ammonia (05/15/2025 9:51 AM EDT) Pathologist [facility] Ammonia 28 11 - 35 mcmol/L LAB CHEMISTRY METHOD 05/15/2025 10:41 AM EDT [facility] Blood Blood sample taken from central line / Unknown Venipuncture / Unknown 05/15/2025 9:51 AM EDT 05/15/2025 10:18 AM EDT Mello Mistry DO LAB BLOOD ORDERABLES Final R esult Performing Organization Address [facility] Co de Phone Number [facility] [address] [place] [address], [place] [phone] * XR Chest 1 View (05/15/2025 5:25 [...] Signed Date: 05/15/2025 06:34 ET Workstation ID: [id number] Transcribed By: Self Edit Transcribed Date: 05/15/2025 [...] Signed Date: 05/15/2025 06:34 ET Workstation ID: [id number] Transcribed By: Self Edit Transcribed Date: 05/15/2025 06:32 ET us Mello Mistry DO IMG XR PROCEDURES Final Resu lt * (ABNORMAL) Culture sputum (05/14/2025 10:06 AM EDT) Culture, Sputum Haemophilus parainfluenzae(A) 05/17/2025 2:21 PM EDT [facility] Comment: The organism value for this result has been updated. These results have been appended to the previously preliminary verified report. Beta Lactamase Negative 05/17/2025 2:21 PM EDT [facility] Gram Stain Result Many Polymorphonuclear leukocytes(A) 05/17/2025 2:21 PM EDT [facility] Gram Stain Result No epithelial cells seen(A) 05/17/2025 2:21 PM EDT [facility] Gram Stain Result Moderate Gram positive cocci in clusters(A) 05/17/2025 2:21 PM EDT [facility] Gram Stain Result Moderate Gram positive cocci in pairs and chains(A) 05/17/2025 2:21 PM EDT [facility] Gram Stain Result Few Gram positive bacilli(A) 05/17/2025 2:21 PM T [facility] Sputum, aspirated Lung structure / Unknown Non-blood Collection / Unknown 05/14/2025 10:06 AM EDT 05/14/2025 10:19 AM EDT Mello Mistry DO LAB MICROBIOLOGY - GENERAL O RDERABLES Final Result Performing Organization Address [facility]/ZIP Co de Phone Number [facility] [address] [place] [address], [place] [phone] * Lactate, with reflex (05/13/2025 4:52 PM EDT) Only the most recent of2 resultswithin the time period is included. [facility] LACTIC ACID 1.8 0.4 - 2.0 mmol/L LAB CHEMISTRY METHOD 05/13/2025 5:55 PM EDT [facility] Blood Venous blood specimen / Unknown Venipuncture / Unknown 05/13/2025 4:52 PM EDT 05/13/2025 5:24 PM EDT us Cherri Garduno DO LAB BLOOD ORDERABLES Final Re sult Performing Organization Address [facility] Co de Phone Number [facility] [address] [place] [address], [place] [phone] * Protime-INR (05/13/2025 4:52 PM EDT) [facility] Protime 12.0 10.6 - 13.9 sec LAB COAGULATION METHOD 05/13/2025 5:36 PM EDT [facility] INR 1.0 LAB COAGULATION METHOD 05/13/2025 5:36 PM EDT [facility] Blood Venous blood specimen / Unknown Venipuncture / Unknown 05/13/2025 4:52 PM EDT 05/13/2025 5:24 PM EDT Cherrilai Garduno LAB BLOOD ORDERABLES Final Re sult Performing Organization Address [facility]/ZIP Co de Phone Number [facility] [address] [place] [address], [place] [phone] * MRSA molecular study (05/13/2025 4:34 PM EDT) [facility] MRSA Screen PCR Not Detected Not Detected LAB MICROBIOLOGY METHOD 05/13/2025 6:08 PM EDT [facility] Swab Both anterior nares / Unknown Non-blood Collection / Unknown 05/13/2025 4:34 PM EDT 05/13/2025 4:48 PM EDT us Mello Mistry DO LAB MICROBIOLOGY - GENERAL O RDERABLES Final Result [facility] [address] [place] [address], [place] [phone] * (ABNORMAL) Drug abuse screen 8a panel, urine (05/13/2025 2:51 PM EDT) Amphetamine Screen, Ur Negative Negative LAB CHEMISTRY METHOD 5 4:34 PM EDT [facility] Comment:Certain OTC medicati ons containing ephedrine, phenylephrine, pseudoephedrine and phenylpropanolamine can cause false positive results. Barbiturate Screen, Ur Negative Negative LAB CHEMISTRY METHOD 5 4:34 PM EDT [facility] Benzodiazepine Screen, Ur Negative Negative LAB CHEMISTRY METHOD 5 4:34 PM T [facility] Cocaine Screen, Ur Negative Negative LAB CHEMISTRY METHOD 5 4:34 PM T [facility] Opiate Screen, Ur Negative Negative LAB CHEMISTRY METHOD 5 4:34 PM T [facility] Cannabinoid (THC) Screen, Ur Positive(A ) Negative LAB CHEMISTRY METHOD 5 4:34 PM T [facility] Comment:Specimens from patie nts taking pantoprazole sodium (Protonix) have been shown to produce false positive results. Oxycodone Screen, Ur Negative Negative LAB CHEMISTRY METHOD 5 4:34 PM EDT [facility] Fentanyl, Ur Negative Negative LAB CHEMISTRY METHOD 5 4:34 PM EDT [facility] Urine Urine specimen obtained by clean catch procedure / Unknown Non-blood Collection / Unknown 05/13/2025 2:51 PM EDT 05/13/2025 4:04 PM EDT [facility] - 05/13/2025 4:34 PM EDT Assay cutoffs: Amphetamines 1000 ng/mL Barbiturates 200 ng/mL Benzodiazepines 200 ng/mL Cocaine 300 ng/mL Fentanyl 1 ng/mL Opiates 300 ng/mL Oxycodone 100 ng/mL THC 50 ng/mL Semi-quantitative assay for screening purposes only. Unconfirmed screening result should not be used for non-medical purposes. *ALTERNATE METHOD CONFIRMATION DONE UPON REQUEST ONLY* [facility] [employer] URINE ORDERABLES Final R esult Performing Organization Address [facility] de Phone Number [facility] [address] [place] [address], * Legionella antigen urine, EIA (05/13/2025 2:51 PM EDT) Legionella Antigen, Ur Negative Negative 05/13/2025 4:44 PM EDT [facility] Urine Urine specimen obtained by clean catch procedure / Unknown Non-blood Collection / Unknown 05/13/2025 2:51 PM EDT 05/13/2025 4:04 PM EDT [facility] - 05/13/2025 4:44 PM EDT Negative for Legionella pneumophilia serogroup 1 antigen. This presumptive result suggests no current or recent infection due to L. pneumophilia serogroup 1. Culture is recommended if Legionella infection is till suspected, as other serogroups and species of Legionella are not detected by this test. [facility] [employer] LAB URINE ORDERABLES Final R esult Performing Organization Address [facility] Co de Phone Number [facility] [address] [place] [address], * Thyroid stimulating hormone with reflex to free t4 and free t3 (05/13/2025 1:51 PM EDT) TSH 2.64 0.40 - 4.00 mcIU/mL LAB CHEMISTRY METHOD 05/13/2025 3:07 PM EDT [facility] Blood Venous blood specimen / Unknown Venipuncture / Unknown 05/13/2025 1:51 PM EDT 05/13/2025 1:59 PM EDT Mello Mistry DO LAB BLOOD ORDERABLES Final R esult Performing Organization Address City/[facility]/ZIP Co de Phone Number [facility] [address] [place] [address], [place] [phone] * Culture blood (05/13/2025 1:51 PM EDT) Only the most recent of2 resultswithin the time period is included. Culture, Blood No growth at 5 days LAB MICROBIOLOGY METHOD 05/18/2025 3:01 PM EDT [facility] Blood Venous blood specimen / Unknown Venipuncture / Unknown 05/13/2025 1:51 PM EDT 05/13/2025 2:00 PM EDT Cherri Garduno DO LAB MICROBIOLOGY - GENERAL OR DERABLES Final Result Performing Organization Address City/[facility]/ZIP Co de Phone Number [facility] [address] [place] [address], [place] [phone] * Triglyceride Monitoring (05/13/2025 1:51 PM EDT) Triglycerides 132 0 - 150 mg/dL LAB CHEMISTRY METHOD 05/13/2025 2:26 PM EDT [facility] Blood Venous blood specimen / Unknown Venipuncture / Unknown 05/13/2025 1:51 PM EDT 05/13/2025 1:59 PM EDT us Cherri Garduno DO LAB BLOOD ORDERABLES Final Re sult [facility] [address] [place] [address], [place] [phone] * (ABNORMAL) Respiratory virus panel molecular study (05/13/2025 1:46 PM EDT) Pathologist [facility], [place] Adenovirus Detection by PCR Not Detected Not Detected LAB MICROBIOLOGY METHOD 05/13/2025 2:59 PM EDT [facility] Influenza A PCR Not Detected Not Detected LAB MICROBIOLOGY METHOD 05/13/2025 2:59 PM EDT [facility] Influenza B PCR Not Detected Not Detected LAB MICROBIOLOGY METHOD 05/13/2025 2:59 PM EDT [facility] Coronavirus 229E Not Detected Not Detected LAB MICROBIOLOGY METHOD 05/13/2025 2:59 PM EDT [facility] Coronavirus HKU1 Not Detected Not Detected LAB MICROBIOLOGY METHOD 05/13/2025 2:59 PM EDT [facility] Coronavirus OC43 Not Detected Not Detected LAB MICROBIOLOGY METHOD 05/13/2025 2:59 PM EDT [facility] Coronavirus NL63 Not Detected Not Detected LAB MICROBIOLOGY METHOD 05/13/2025 2:59 PM EDT [facility] Parainfluenza Virus 1 Not Detected Not Detected LAB MICROBIOLOGY METHOD 05/13/2025 2:59 PM EDT [facility] Parainfluenza Virus 2 Not Detected Not Detected LAB MICROBIOLOGY METHOD 05/13/2025 2:59 PM EDT [facility] Parainfluenza Virus 3 Not Detected Not Detected LAB MICROBIOLOGY METHOD 05/13/2025 2:59 PM EDT [facility] Parainfluenza Virus 4 Not Detected Not Detected LAB MICROBIOLOGY METHOD 05/13/2025 2:59 PM EDT [facility] RSV PCR Not Detected Not Detected LAB MICROBIOLOGY METHOD 05/13/2025 2:59 PM EDT [facility] Human Metapneumovirus A and B Not Detected Not Detected LAB MICROBIOLOGY METHOD 05/13/2025 2:59 PM EDT [facility] Rhinovirus/Entero virus Detected(A ) Not Detected LAB MICROBIOLOGY METHOD 05/13/2025 2:59 PM EDT [facility] Bordetella pertussis Not Detected Not Detected LAB MICROBIOLOGY METHOD 05/13/2025 2:59 PM EDT [facility] Bordetella parapertussis Not Detected Not Detected LAB MICROBIOLOGY METHOD 05/13/2025 2:59 PM EDT [facility] Mycoplasma pneumo by PCR Not Detected Not Detected LAB MICROBIOLOGY METHOD 05/13/2025 2:59 PM EDT [facility] Chlamydia pneumoniae Not Detected Not Detected LAB MICROBIOLOGY METHOD 05/13/2025 2:59 PM EDT [facility] SARS COV-2 Not Detected Not Detected LAB MICROBIOLOGY METHOD 05/13/2025 2:59 PM EDT [facility] Swab Both anterior nares / Unknown Non-blood Collection / Unknown 05/13/2025 1:46 PM EDT 05/13/2025 2:00 PM EDT [facility] - 05/13/2025 2:59 PM EDT Testing was performed using the [employer] Respiratory Pathogen PCR Assay. All results must [...] that are below the limit of detection. us Cherri Garduno DO LAB MICROBIOLOGY - GENERAL OR DERABLES Final Result [facility] [address] [place] [address], * Troponin I high sensitivity (05/13/2025 1:46 PM EDT) [facility] High Sensitivity Troponin I 12 <=79 ng/L LAB CHEMISTRY METHOD 05/13/2025 2:25 PM EDT [facility] Blood Venous blood specimen / Unknown Venipuncture / Unknown 05/13/2025 1:46 PM EDT 05/13/2025 2:01 PM EDT [facility] - 05/13/2025 2:25 PM EDT High levels of biotin in samples may falsely decrease hsTroponin values. Use caution when interpreting hsTroponin results in patients taking biotin who exhibit renal impairment (eGFR <60) or in patients taking more than 20 mg/day of biotin. us Cherri Garduno DO LAB BLOOD ORDERABLES Final Re sult [facility] [address] [place] [address], * (ABNORMAL) Arterial blood gas (05/13/2025 1:37 PM EDT) [facility] pH, Arterial 7.42 7.35 - 7.45 pH 05/13/2025 2:36 PM EDT [facility] pCO2, Arterial 44 35 - 45 mmHg 05/13/2025 2:36 PM EDT [facility] pO2, Arterial 82 80 - 100 mmHg 05/13/2025 2:36 PM EDT [facility] HCO3, Arterial 27.5(H) 22.0 - 26.0 mmol/L 05/13/2025 2:36 PM EDT [facility] O2 Sat, Arterial 97.9 95.0 - 98.0 % 05/13/2025 2:36 PM EDT [facility] Base Excess, Arterial 3.4(H) -2.0 - 2.0 mmol/L 05/13/2025 2:36 PM EDT [facility] Guicho Test Pass Pass, Unresponsi ve, Line 05/13/2025 2:36 PM EDT [facility] FIO2 35.00 05/13/2025 2:36 PM T [facility] Blood Arterial blood specimen / Unknown Arterial Puncture / Unknown 05/13/2025 1:37 PM EDT 05/13/2025 1:47 PM EDT us Cherri Garduno DO LAB BLOOD ORDERABLES Final Re sult [facility] [address] [place] [address], [place] [phone] * (ABNORMAL) Comprehensive metabolic panel (05/13/2025 1:13 PM EDT) Sodium 137 133 - 145 mmol/L LAB CHEMISTRY METHOD 05/13/2025 2:[address] [facility] Potassium 4.1 3.5 - 5.5 mmol/L LAB CHEMISTRY METHOD 05/13/2025 2:[address] [facility] Comment:Hemolysis present Chloride 103 96 - 110 mmol/L LAB CHEMISTRY METHOD 05/13/2025 2:[address] [facility] CO2 24 21 - 32 mmol/L LAB CHEMISTRY METHOD 05/13/2025 2:[address] [facility] Anion Gap 10 3 - 11 LAB CHEMISTRY METHOD 05/13/2025 2:[address] [facility] Glucose 167(H) 70 - 100 mg/dL LAB CHEMISTRY METHOD 05/13/2025 2:[address] [facility] BUN 14 5 - 25 mg/dL LAB CHEMISTRY METHOD 05/13/2025 2:[address] [facility] Creatinine 1.12 0.70 - 1.30 mg/dL LAB CHEMISTRY METHOD 05/13/2025 2:[address] [facility] eGFR 81 >=60 mL/min/1. 73m2 LAB CHEMISTRY METHOD 05/13/2025 2:[address] [facility] Comment:Calculation based on the Chronic Kidney Disease Epidemiology Collaboration (CKD-EPI) equation refit without adjustment for race. BUN/Creatinine Ratio 12.5 LAB CHEMISTRY METHOD 05/13/2025 2:[address] [facility] Calcium 10.4 8.5 - 10.5 mg/dL LAB CHEMISTRY METHOD 05/13/2025 2:[address] [facility] AST (SGOT) 32 10 - 42 unit/L LAB CHEMISTRY METHOD 05/13/2025 2:[address] [facility] Comment:Hemolysis present ALT (SGPT) 39 10 - 60 unit/L LAB CHEMISTRY METHOD 05/13/2025 2:[address] [facility] Alkaline Phosphatase 93 42 - 121 unit/L LAB CHEMISTRY METHOD 05/13/2025 2:[address] [facility] Total Protein 8.7(H) 6.0 - 8.0 g/dL LAB CHEMISTRY METHOD 05/13/2025 2:[address] [facility] Albumin 4.9 3.2 - 5.0 g/dL LAB CHEMISTRY METHOD 05/13/2025 2:[address] [facility] Total Bilirubin 0.8 0.0 - 1.4 mg/dL LAB CHEMISTRY METHOD 05/13/2025 2:[address] [facility] Blood Venous blood specimen / Unknown Venipuncture / Unknown 05/13/2025 1:13 PM EDT 05/13/2025 1:47 PM EDT us Deneen Friedman MD LAB BLOOD ORDERABLES Final Resul t [facility] [address] [place] [address], * [place] CR[facility] 30-74 MINUTES (05/13/2025 12:54 PM EDT) Cherri Cedillo DO - 05/13/2025 12:54 PM EDT Cherri [...] ORDERABLES Final Result from Last 3 Months Insurance MEDICARE [facility] MEDICARE Member Subscriber Plan / Payer (Ef fective 2024-Present) Name:SHARAN BARTON Relation to Subscriber:Self Name:Sharan Barton Payer ID:[id number] Group ID:[id number] Type:Not on file Address: [address] [place] [id number] Advance Directives Documents on File Type Date Recorded Patient Spa Manager Expl anation Advance Directives and Living [...] Barrios Sister Health Care Agent Care Teams Tubing Drier Relationship Specialty Start Date End Date Polo Noriega MD [address] [place] [id number] PCP - General Internal Medicine 10/26/24
[2025-06-24 11:22] LABS: Amylase 77 U/L (28-100); Lipase 67 U/L (8-78)
== END 2025-06-24 08:34 | disposition home or self-care (01) ==
LOC: HO.10HDL 08:33
PROVIDERS: Visit Provider Nurse Practitioner Family
DX: M72.2 Plantar fascial fibromatosis (principal); Z87.19 Personal history of other diseases of the digestive system
CPT/HCPCS: 36415; 82150; 83690

== ENCOUNTER 2025-07-14 08:56 | Outpatient (AMB) | payer OTHER, SELFPAY ==
--- NOTE | 2025-07-14 09:22 | A.OFFPC_ITS ---
Vital Signs 07/14/25 09:28 Height 5 ft 9 in Weight 242 lb BMI 35.7 BP 132/83 Blood Pressure Location Lt brachial Position Sitting Respiration 13 Pulse 74 Pulse Source Pulse Oximeter Temp 97.7 F Temp Source Oral Pulse Oximetry (%) 96 Oxygen Delivery Method Simple Mask Intake Visit Reasons: next appt 30 min 4 mo routine complex dz mgmt Intake Note: Routine follow up Lead Fabricator Required: No Allergies No Known Allergies (No Known Allergies*) Allergy (Verified 07/14/25 09:40) Medication List - Last Reconciled 07/14/25 by Migdalia Dorantes, UTILITY HELICOPTER REPAIRER- albuterol sulfate 90 mcg/actuation (Ventolin HFA) inhalation bisacodyl 20 mg (4 x 5 mg) PO ONCE blood sugar diagnostic (Vennli Ultra Test strips) use to check blood sugars up to 4 x a day blood-glucose meter (Vennli Ultra2 Meter) As directed blood-glucose sensor (ShowKitStyle Bogdan 3 Plus Sensor device) Use daily As directed to monitor glucose blood-glucose,addiction specialist,cont (FreeStyle Bogdan 3 [place]on) Use daily As directed to monitor blood glucose budesonide-formoterol 160-4.5 mcg/actuation inhalation cholecalciferol (vitamin D3) 50 mcg PO DAILY [diabetic shoes please provide 1 pair of shoes and 1 pair of inserts] dornase lesley (Pulmozyme) mg inhalation famotidine 20 mg PO DAILY 30 days fgagowtjdjr-fmvemmdma-nhxrgcon 100-62.5-25 mcg (Trelegy Ellipta) 1 inh inhalation DAILY gabapentin 300 mg PO BEDTIME glucagon 3 mg/actuation 3 mg intranasal ONCE PRN glucose (Dex4 Glucose) 16 grams (4 x 4 gram) PO Q15M PRN ibuprofen 400 mg PO Q6H insulin aspart U-100 4 units (0.04 mL) subcut TID insulin glargine-yfgn (Semglee (insulin glargine-yfgn) Pen) 30 units subcut DIRECTED ketoconazole 2% 1 appl topical 3XW lancets (Vennli Delica Plus Lancet) As directed lisinopril 10 mg PO DAILY metformin ER (Glucophage XR) 500 mg PO QPM pen needle, diabetic As directed polyethylene glycol 3350 (Miralax) 238 grams PO ONCE sodium chloride 7% (Hyper-Harris) inhalation hbjrktucouq-epwtado-csifpzjoeb 10-50-125 mg (Alyftrek) tabs PO Tobacco use date assessed: 07/14/25 Dental Screening Dental Screen Date: 07/14/25 Did you have a dental visit in the last 12 months?: Yes Did you have a dental problem in the last 6 months where you did not have access to dental care?: No Was dental information given to patient?: Patient has dentist HPI HPI Comments History of Present Illness Details 49 y/o M with DM2 with complication, Cys tic Fibrosis, GERD, HTN, anemia, hypoalbuminemia, pancreatitis, hx of pna 10/2024 requiring intubation, Bacteremia (MSSA 10/2024), Obesity, MAC, plantar fasciitis, Surgery: R shoulder surgery Family hx: Mom and Dad ; Mom OK,DM; Dad etoh, DM. Children - none. Social: disabled; lives w/ brother. Drives. Health Maintenance: Colon referral to [facility] for first screening colon PSA 02/2025 Tdap 2024 Flu 05/2025 Pneumo vaccine 2024 Specialists: Infectious disease, Pulm, CF [facility] CF vest Optho wears glasses, [facility]; 12/2024 reports negative retinopathy GI Podiatry Endo ([facility] now managing 06/2025 not [facility]) History of Present Illness The patient is a 49-year-old male presenting for a routine complex disease management visit. Cystic Fibrosis: - The patient reports that he has receiv ed his vest and finds it helpful. - He is on a new medication, Vanzacaftor , to reduce mucus, which requires monthly blood work to monitor his liver. - He continues to use a sodium chloride nebulizer and has been prescribed a new asthma inhaler, budesonide/formoterol. - An inhaler previously prescribed by [facility] office was discontinued and then re- prescribed by the CF clinic (albuterol). - A referral to pulmonary rehabilitation was made, but the patient was not accepted into the program at [facility] due to infection concerns related to his CF. - The CF clinic is aware and will explor e other rehabilitation options, potentially with his physical therapist or at-home programs. Diabetes Mellitus due to Cystic Fibrosis: - The patient's diabetes is considered r elated to cystic fibrosis, as mucus is thought to be plugging his pancreas. - Management of his diabetes has been [place] transferred from endocrinology to his CF clinic. - The CF clinic has increased his long-a cting insulin dose to 40 units and changed his sliding scale insulin regimen. - He continues to take metformin. - using CGM, his last waking self-monito red blood glucose was 167 mg/dL this morning. Hypertension: - The patient has a history of hypertens ion and was reportedly taking lisinopril. Health Maintenance: - The patient received his influenza, pn eumonia, and COVID-19 vaccinations at the CF clinic. - He reported experiencing body aches fo r a week following the COVID-19 vaccination, as well as a runny nose, which have since resolved. - Paperwork for electricity assistance h as been completed. - He is awaiting a call to schedule a co lonoscopy and has the prep medications at home. Past Medical History - Cystic Fibrosis - Type 2 Diabetes Mellitus with hypoalbu minuria - Hypertension - Gastroesophageal Reflux Disease (GERD) - Anemia - Obesity - Mycobacterium avium complex (MAC) infe ction - Patient has remained out of the hospit al since the last visit. Review of Systems - Constitutional: Reports feeling good o verall. Reports recent history of body aches and subsequent runny nose with mucus following COVID-19 vaccination, which have resolved. - Respiratory: Reports his vest is helpi ng to clear mucus. Denies current rhinorrhea or other acute respiratory symptoms. Physical Exam General: Well developed, well nourished, in no acute distress. Appears stated age. Head: Normocephalic, atraumatic. Eyes: Pupils are equal, round and reactive to light and accommodation. Conjunctivae are clear. Lungs: Dim throughout, no cough or wheezing Heart: Regular rate and rhythm. No murmurs, click, rubs or gallops are noted. Abd: soft, nontender Pulses: Peripheral pulses are equal and palpable bilaterally. Ext: No edema Neurologic: Gait and station normal. Cranial Nerves 2-12 intact. Motor strength grossly symmetrical and intact. No sensory loss. Balance normal. Results - Self-monitored blood glucose: 167 mg/d L this morning. Medical Decision Making The patient is a 49-year-old male with a complex medical history, including cystic fibrosis and related diabetes, who presents for a routine chronic disease management visit. He appears stable and is doing much better, having avoided hospitalization since his last visit. His care is now primarily managed by his cystic fibrosis clinic, which has also taken over his diabetes management from our endocrinology service. This is appropriate given his diabetes is a sequela of his cystic fibrosis. His CF- specialty team has made several medication adjustments, including a new medication to reduce mucus (Vanzacaftor), a new inhaler (budesonide/fumoterol), and changes to his insulin regimen. Given that his complex conditions are being closely monitored by the appropriate specialists, my role is supportive and focused on continuity. I will make no changes to his current regimen. Efforts will be made to obtain records from the CF clinic to ensure our records are up-to-date. Follow-up is scheduled for February to avoid the cold and flu season, which poses a significant risk to this patient. Plan 1. Cystic Fibrosis - Patient's care is primarily managed by his CF clinic. - Will request records from [facility] to update the patient's chart with current medications and notes. - Medication list updated to include bud esonide/formoterol and Vansacaftor per insurance data and patient report. - Patient has been educated on reducing infection risk by wearing a mask and avoiding sick contacts. 2. Diabetes Mellitus Due To Cystic Fibro sis - Management has been transferred to the CF clinic. - Sent message to cancel the upcoming en docrinology appointment with Barbara Robins. - The long-acting insulin dose has been updated to 40 units in the patient's chart per his report. 3. Health Maintenance - No changes to management will be made at this visit. - Follow-up scheduled for February to avoid exposing the patient to illnesses during flu season. - Gave the patient a business card to [place] to his CF clinic to facilitate the transfer of medical records. - Patient is pending a colonoscopy; he i s awaiting a scheduling call. Patient Instructions - Continue with all your current treatme nts and medications as directed by your care team. - [facility] visit so they can send your medical records to my office. - Continue to take precautions to avoid getting sick, such as wearing a mask in public and staying away from people who are ill. - Your next follow-up appointment in thi s office will be in February for CPE, sooner PRN. - If you need anything before your next appointment, please send a message through the online patient portal. - Follow up with [facility] to schedule your colonoscopy. Consent Patient was informed and verbally consented to the use of an ambient scribe for clinic note documentation during this visit. Total time spent caring for the patient today was 30 minutes. This includes time spent before the visit reviewing the chart, time spent during the visit, and time spent after the visit on documentation, reviewing laboratory results, diagnostic imaging, medications, performing a medically necessary evaluation, counseling on diagnoses, care coordination, ordering appropriate tests, ordering appropriate medications, review of tests performed by other providers, reporting test results with the patient, communication with other healthcare providers. [facility] Medical History (Updated 06/23/25 @ 09:40 by Isis Barger CNP) Acid reflux Arthritis Calcaneal spur of both feet Colon cancer screening Community acquired pneumonia Diabetes Foot pain, bilateral Nail dystrophy Plantar fasciitis, bilateral Pneumonia Respiratory failure (~10/2024) Surgical History H/O shoulder surgery Family History Mother Asthma HTN (hypertension) High cholesterol Diabetes Father Asthma HTN (hypertension) High cholesterol Diabetes Substance abuse Social History Household Members: Other Household Members Other:: brother Both parents involved: No Caregiver staying overnight: No Housing: House Are you a primary nursing care attendant to a significant other at home: No Do you presently have visiting nurse or other home services: No 75 years or older and lives alone: No Alcohol intake: current Alcohol intake frequency: a few times a month Patient Tobacco Use Status: Never used Tobacco e-Cigarette/Vaping Use: Never Used Second Hand Smoke Exposure: No Substance Use Type: Marijuana Current occupational status: unemployed Cognitive needs: No Hearing needs: No Vision needs: Yes (wear galsses) Questionnaire PHQ-9 Over the last 2 weeks, how often have you been bothered by any of the following problems? 1. Little interest or pleasure in doing things: not at all 2. Feeling down, depressed, or hopeless: not at all 3. Trouble falling or staying asleep, or sleeping too much: not at all 4. Feeling tired or having little energy: not at all 5. Poor appetite or overeating: not at all 6. Feeling bad about yourself - or that you are a failure or have let yourself or your family down: not at all 7. Trouble concentrating on things, such as reading the newspaper or watching television: not at all 8. Moving or speaking so slowly that other people could have noticed. Or the opposite - being so fidgety or restless that you have been moving around a lot more than usual: not at all 9. Thoughts that you would be better off or of hurting yourself in some way: not at all Total score: 0 Depression Screening Interpretation: Negative Depression Screening Done: Yes 63035 - PHQ-9 Billing: Yes Source: Developed by Drs. Wang Krishnan, Kiarra Maher, Geraldo Lundberg and colleagues, with an educational mir from [employer]. Thrive Questionnaire Date Thrive assessed: 07/14/25 I am a: Patient What is your living situation today?: I have a steady place to live Within the past 12 months, did the food you bought not last and you didn't have the money to get more?: Sometimes True Within the past 12 months, did you worry whether your food would run out before you got money to buy more?: Never true Do you have trouble paying for medicines?: No Do you have trouble getting transportation to medical appointments?: No Do you have trouble paying your heating and electricity bill?: No Do you have trouble taking care of your child, family member or friend?: No Do you have trouble with day-to-day activities such as bathing, preparing meals, shopping, managing finances, etc.?: No Are you currently unemployed and looking for a job?: Yes Are you interested in more education?: No Please select the resources that you would like help with: None Currently or been in a relationship where the following occur: No concerns reported THRIVE Score: 1 SHERRY-7 AMB Questionnaire SHERRY-7 Date SHERRY - 7 assessed: 07/14/25 Feeling nervous, anxious, or on edge: 0 = Not at all Not being able to stop or control worryin = Not at all Worrying too much about different things: 0 = Not at all Trouble relaxin = Not at all Being so restless that it is hard to sit still: 0 = Not at all Becoming easily annoyed or irritable: 0 = Not at all Feeling afraid as if something awful might happen: 0 = Not at all Total SHERRY-7 score (0-4 normal; 5-9 mild; 10-14 moderate; 15-21 severe): 0 Source: Developed by Drs. Wang Krishnan, Kiarra Maher, Geraldo Lundberg and colleagues, with an educational mir from [employer]. SHERRY-7 Assessment Billing SHERRY-7 Assessment Tool: SHERRY-7 Assessment 88594 Physical exam (Primary Care) Vital Signs: Last Vital Signs Temp 97.7 F 07/14/25 09:28 Pulse 74 07/14/25 09:28 Resp 13 07/14/25 09:28 BP 132/83 07/14/25 09:28 Pulse Ox 96 07/14/25 09:28 Oxygen Delivery Method Simple Mask 07/14/25 09:28 BMI result Body Mass Index 35.7 Tobacco/Smoking Status: Tobacco use Status Tobacco use date assessed 07/14/25 07/14/25 09:24 Patient Tobacco Use Status Never used Tobacco 07/14/25 09:24 e-Cigarette/Vaping Use Never Used 07/14/25 09:24 PHQ-9: PHQ-9 Score PHQ-9: Total score 0 07/14/25 10:21 Depression Screening Interpretation: Negative Thrive Assessment: Date of Thrive Assessment Date Thrive assessed 07/14/25 07/14/25 09:24 Currently or been in a relationship where the following occur: No concerns reported Coding Level of Care Code Est Pt Level 4 (40815) Complex EM visit Add On G2211 Diagnoses Hypertension 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 Hypertension type: secondary to endocrine disorders Diabetes mellitus with complication E11.8 Type 2 diabetes mellitus with other specified complication, with long-term current use of insulin E11.69; Z79.4 Diabetes mellitus complication status: with other specified complication Cystic fibrosis E84.9 Additional Codes SHERRY-7 Assessment Billing - SHERRY-7 Assessment Tool: SHERRY-7 Assessment 63126 ([id number]) PHQ-9 - 37046 - PHQ-9 Billing: Yes ([id number]) Assessment & Plan Assessment & Plan (1) HTN (hypertension): Code(s): I10 - Essential (primary) hypertension Category: Medical Qualifiers: Hypertension type: secondary to endocrine disorders Qualified Code(s): I15.2 - Hypertension secondary to endocrine disorders (2) Diabetes mellitus with complication: Comment: peripheral neuropathy and HTN Code(s): E11.8 - Type 2 diabetes mellitus with unspecified complications Category: Medical (3) Type 2 diabetes mellitus, with long-term current use of insulin: Code(s): E11.9 - Type 2 diabetes mellitus without complications; Z79.4 - intermediate project manager (current) use of insulin Category: Medical Qualifiers: Diabetes mellitus complication status: with other specified complication Qualified Code(s): E11.69 - Type 2 diabetes mellitus with other specified complication; Z79.4 - shelter (current) use of insulin (4) Cystic fibrosis: Code(s): E84.9 - Cystic fibrosis, unspecified Category: Medical Plan . Medications: Changed From insulin glargine-yfgn (Semglee (insulin glargine-yfgn) Pen) 30 units subcut DIRECTED To insulin glargine-yfgn (Semglee (insulin glargine-yfgn) Pen) 40 units subcut DIRECTED
[2025-07-14 09:28] VITALS: BP 132/83; PULSE 74; RESP 13; TEMP 36.5; O2SAT 96; BMI 35.7
--- OUTSIDE RECORDS SUMMARY | 2025-07-14 16:35 | XMS_ITS | Clinical Summary ---
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 03/24/20 25 025 Active Problems Problem Noted Date Diagnosed Date Acute pancreatitis without i nfection or necrosis, unspecified pancreatitis type 10/29/2024 Pancreatitis 10/28/2024 Pneumonia 10/20/2024 Cystic fibrosis (CMS/[facility] V24, CMS/HCC V28) 10/20 Resolved Problems Problem Noted Date Diagnosed Date Resolved Date Acute respiratory failure, u nspecified whether with hypoxia or hypercapnia ([facility] V24, [facility] V28) 05/13/2025 05/18/2025 Acute kidney injury ([facility] V24) 10/24/2024 10/26/2024 Septic shock ([facility] V24, [facility] V28) 10/22/2024 10/26/2024 Acute respiratory failure wi th hypoxia ([facility] V24, [facility] V28) 10/20/2024 10/26/2024 Endotracheally intubated 10/20/202410/2024 On mechanically assisted garfield tilation ([facility] V24, [facility] V28) 10/20/2024 10/26/2024 Arterial hypotension 10/20/2024 025 Lactic acidosis 10/20/2024 10/26/2024 Encounters Date Type Department Care Team Description 05/13/2025 1:00 PM EDT - 05/18/2025 11:16 AM EDT Hospital Encounter [facility] [address] [place] [id number] Cherri Garduno DO Levrault, Richard, DO Bonacum, MD Fadia Shelton, MD Pamela Galarza Alistair A, MD Acute respiratory failure, unspecified whether with hypoxia or hypercapnia ([facility] V24, [facility] V28) (Primary Dx); Cystic fibrosis ([facility] V24, [facility] V28) Discharge Disposition: Home-Health Care c from Last 3 Months Surgical History Surgery Date Site/Laterality Comments SHOULDER RT right shoulder surgery BRONCHOSCOPY Medical History Medical History Date Comments Cystic fibrosis ([facility] V24, [facility] V28) diagnosed in his 30s MSSA bacteremia Diabetes mellitus ([facility] V24, [facility] V28) Respiratory failure requirin g intubation ([facility] V24, [facility] V28) 09/2024 Family History Medical History Relation [...] AND DIFFERENTIAL STAT 05/13/2025 1:13 PM EDT [facility] 30-74 MINUTES Routine 05/13/2025 12:54 PM EDT from Last 3 Months Results * ECG-Annotated (05/19/2025) us Provider Onbase MD ECG ORDERABLES Final Result * (ABNORMAL) POCT Glucose, blood (05/18/2025 7:44 AM EDT) Only the most recent of40 resultswithin the time period is included. Pathologist [facility] Glucose POCT 128(H) 70 - 100 mg/dL 05/18/2025 7:57 AM EDT [facility] Blood Capillary blood specimen / Unknown 05/18/2025 7:44 AM EDT 05/18/2025 8:01 AM EDT Corbin Santiago MD LAB POINT OF CARE TE ST DOCKED DEVICE UNSOLICITED RESULTS Final Result [facility] [address] [place] [address], * (ABNORMAL) CBC auto differential (05/17/2025 3:33 AM EDT) Only the most recent of5 resultswithin the time period is included. WBC 13.3(H) 4.8 - 10.8 K/[facility] LAB HEMETOLOGY METHOD 05/17/2025 4:07 AM EDT [facility] RBC 4.70 4.50 - 5.50 M/[facility] LAB HEMETOLOGY METHOD 05/17/2025 4:07 AM [facility] Hemoglobin 13.2(L) 13.5 - 17.5 g/dL LAB HEMETOLOGY METHOD 05/17/2025 4:07 AM [facility] Hematocrit 40.6(L) 42.0 - 54.0 % LAB HEMETOLOGY METHOD 05/17/2025 4:07 AM [facility] MCV 86.9 79.0 - 98.0 FL LAB HEMETOLOGY METHOD 05/17/2025 4:07 AM [facility] MCH 28.3 27.0 - 32.0 pcg LAB HEMETOLOGY METHOD 05/17/2025 4:07 AM [facility] MCHC 32.5 32.0 - 37.0 g/dL LAB HEMETOLOGY METHOD 05/17/2025 4:07 AM [facility] RDW 11.6 11.0 - 15.0 % LAB HEMETOLOGY METHOD 05/17/2025 4:07 AM [facility] Platelets 198 130 - 400 K/mcL LAB HEMETOLOGY METHOD 05/17/2025 4:07 AM [facility] MPV 11.0 7.0 - 11.0 FL LAB HEMETOLOGY METHOD 05/17/2025 4:07 AM [facility] NRBC 0.0 <1.0 % LAB HEMETOLOGY METHOD 05/17/2025 4:07 AM [facility] NRBC Absolute 0.00 <0.10 K/mcL LAB HEMETOLOGY METHOD 05/17/2025 4:07 AM [facility] Neutrophils Relative 82.4 % LAB HEMETOLOGY METHOD 05/17/2025 4:07 AM [facility] Lymphocytes Relative 9.9 % LAB HEMETOLOGY METHOD 05/17/2025 4:07 AM [facility] Monocytes Relative 6.2 % LAB HEMETOLOGY METHOD 05/17/2025 4:07 AM [facility] Eosinophils Relative 0.0 % LAB HEMETOLOGY METHOD 05/17/2025 4:07 AM [facility] Basophils Relative 0.2 % LAB HEMETOLOGY METHOD 05/17/2025 4:07 AM [facility] Immature Granulocytes Relative 1.3 % LAB HEMETOLOGY METHOD 05/17/2025 4:07 AM [facility] Neutrophils Absolute 10.99(H) 1.50 - 7.00 K/mcL LAB HEMETOLOGY METHOD 05/17/2025 4:07 AM [facility] Lymphocytes Absolute 1.32 1.00 - 5.00 K/mcL LAB HEMETOLOGY METHOD 05/17/2025 4:07 AM [facility] Monocytes Absolute 0.83 0.20 - 1.00 K/mcL LAB HEMETOLOGY METHOD 05/17/2025 4:07 AM [facility] Eosinophils Absolute 0.00 0.00 - 0.50 K/mcL LAB HEMETOLOGY METHOD 05/17/2025 4:07 AM [facility] Basophils Absolute 0.02 0.00 - 0.20 K/mcL LAB HEMETOLOGY METHOD 05/17/2025 4:07 AM [facility] Immature Granulocytes Absolute 0.17(H) 0.00 - 0.03 K/mcL LAB HEMETOLOGY METHOD 05/17/2025 4:07 AM [facility] Blood Blood sample taken from central line / Unknown Existing Catheter / Unknown 05/17/2025 3:33 AM EDT 05/17/2025 4:00 AM EDT us Kristen Campuzano NP LAB BLOOD ORDERABLES Final Resul t [facility] [address] [place] [address], [place] [phone] * Phosphorus (05/17/2025 3:33 AM EDT) Only the most recent of5 resultswithin the time period is included. Phosphorus 4.1 2.5 - 4.5 mg/dL LAB CHEMISTRY METHOD 05/17/2025 4:31 AM EDT [facility] Blood Blood sample taken from central line / Unknown Existing Catheter / Unknown 05/17/2025 3:33 AM EDT 05/17/2025 4:00 AM EDT us Kristen Campuzano NP LAB BLOOD ORDERABLES Final Resul t Performing Organization Address [facility] de Phone Number [facility] [address] [place] [address], * (ABNORMAL) Magnesium (05/17/2025 3:33 AM EDT) Only the most recent of5 resultswithin the time period is included. Magnesium 2.7(H) 1.9 - 2.6 mg/dL LAB CHEMISTRY METHOD 05/17/2025 4:31 AM EDT [facility] Blood Blood sample taken from central line / Unknown Existing Catheter / Unknown 05/17/2025 3:33 AM EDT 05/17/2025 4:00 AM EDT us Kristen Campuzano NP LAB BLOOD ORDERABLES Final Resul t Performing Organization Address [facility] de Phone Number [facility] [address] [place] [address], * (ABNORMAL) Hemoglobin A1c (05/17/2025 3:33 AM EDT) Hemoglobin A1C 7.6(H) <6.5 % LAB CHEMISTRY METHOD 05/18/2025 10:47 AM EDT [facility] Mean Bld Glu Estim. 171 mg/dL LAB CHEMISTRY METHOD 05/18/2025 10:47 AM EDT [facility] Blood Blood sample taken from central line / Unknown Existing Catheter / Unknown 05/17/2025 3:33 AM EDT 05/17/2025 4:00 AM EDT Corbin Santiago MD LAB BLOOD ORDERABLES Final Re sult Performing Organization Address City/[facility]/ZIP Co de Phone Number [facility] [address] [place] [address], [place] [phone] * Calcium, ionized (05/17/2025 3:33 AM EDT) Only the most recent of4 resultswithin the time period is included. Calcium Ionized 4.55 4.50 - 5.30 mg/dL 05/17/2025 4:06 AM EDT [facility] Blood Blood sample taken from central line / Unknown Existing Catheter / Unknown 05/17/2025 3:33 AM EDT 05/17/2025 4:00 AM EDT Kristen Campuzano NP LAB BLOOD ORDERABLES Final Resul t Performing Organization Address [facility]/ZIP Co de Phone Number [facility] [address] [place] [address], [place] [phone] * (ABNORMAL) Basic metabolic panel (05/17/2025 3:33 AM EDT) Only the most recent of4 resultswithin the time period is included. Sodium 141 133 - 145 mmol/L LAB CHEMISTRY METHOD 05/17/2025 4:31 AM EDT [facility] Potassium 3.7 3.5 - 5.5 mmol/L LAB CHEMISTRY METHOD 05/17/2025 4:31 AM EDT [facility] Chloride 104 96 - 110 mmol/L LAB CHEMISTRY METHOD 05/17/2025 4:31 AM [facility] CO2 31 21 - 32 mmol/L LAB CHEMISTRY METHOD 05/17/2025 4:31 AM [facility] Anion Gap 6 3 - 11 LAB CHEMISTRY METHOD 05/17/2025 4:31 AM [facility] Glucose 152(H) 70 - 100 mg/dL LAB CHEMISTRY METHOD 05/17/2025 4:31 AM [facility] BUN 21 5 - 25 mg/dL LAB CHEMISTRY METHOD 05/17/2025 4:31 AM [facility] Creatinine 0.76 0.70 - 1.30 mg/dL LAB CHEMISTRY METHOD 05/17/2025 4:31 AM [facility] eGFR 111 >=60 mL/min/1. 73m2 LAB CHEMISTRY METHOD 05/17/2025 4:31 AM [facility] Comment:Calculation based on the Chronic Kidney Disease Epidemiology Collaboration (CKD-EPI) equation refit without adjustment for race. BUN/Creatinine Ratio 27.6 LAB CHEMISTRY METHOD 05/17/2025 4:31 AM [facility] Calcium 8.9 8.5 - 10.5 mg/dL LAB CHEMISTRY METHOD 05/17/2025 4:31 AM [facility] Blood Blood sample taken from central line / Unknown Existing Catheter / Unknown 05/17/2025 3:33 AM EDT 05/17/2025 4:00 AM EDT us Kristen Campuzano NP LAB BLOOD ORDERABLES Final Resul t [facility] [address] [place] [address], * Procalcitonin (05/16/2025 3:27 AM EDT) Only the most recent of4 resultswithin the time period is included. Procalcitonin 0.08 <=0.16 ng/mL LAB CHEMISTRY METHOD 05/16/2025 9:40 AM EDT [facility] Blood Blood sample taken from central line / Unknown Existing Catheter / Unknown 05/16/2025 3:27 AM EDT 05/16/2025 3:38 AM EDT Narrative [facility] - 05/16/2025 9:40 AM EDT [...] if any concentrations <2.0 ng/mL are obtained. Mello Mistry DO LAB BLOOD ORDERABLES Final R esult [facility] [address] [place] [address], * Hepatic function panel (05/16/2025 3:27 AM EDT) [facility] Total Protein 6.6 6.0 - 8.0 g/dL LAB CHEMISTRY METHOD 05/16/2025 4:03 AM EDT [facility] Albumin 3.7 3.2 - 5.0 g/dL LAB CHEMISTRY METHOD 05/16/2025 4:03 AM EDT [facility] Total Bilirubin 0.9 0.0 - 1.4 mg/dL LAB CHEMISTRY METHOD 05/16/2025 4:03 AM EDT [facility] Bilirubin, Direct 0.2 0.0 - 0.3 mg/dL LAB CHEMISTRY METHOD 05/16/2025 4:03 AM EDT [facility] Bilirubin, Indirect 0.7 0.0 - 1.1 mg/dL LAB CHEMISTRY METHOD 05/16/2025 4:03 AM EDT [facility] ALT (SGPT) 26 10 - 60 unit/L LAB CHEMISTRY METHOD 05/16/2025 4:03 AM EDT [facility] AST (SGOT) 21 10 - 42 unit/L LAB CHEMISTRY METHOD 05/16/2025 4:03 AM EDT [facility] Alkaline Phosphatase 72 42 - 121 unit/L LAB CHEMISTRY METHOD 05/16/2025 4:03 AM EDT [facility] Blood Blood sample taken from central line / Unknown Existing Catheter / Unknown 05/16/2025 3:27 AM EDT 05/16/2025 3:38 AM EDT us Mello Mistry DO LAB BLOOD ORDERABLES Final R esult [facility] [address] [place] [address], * ECG 12 lead (05/15/2025 8:39 PM EDT) Only the most recent of2 resultswithin the time period is included. Ventricular Rate ECG 124 BPM GEMUSE Atrial Rate 124 BPM GEMUSE P-R Interval 134 ms GEMUSE QRS Duration 86 ms GEMUSE Q-T Interval 328 ms GEMUSE QTc 471 ms GEMUSE P Wave [place] 53 degrees GEMUSE T [place] 17 degrees GEMUSE ECG Interpretation Poor data [...] 05/15/2025 10:31 PM EDT us Kristen Campuzano PRENATAL TEACHER ECG ORDERABLES Final Result GEMUSE * Ammonia (05/15/2025 9:51 AM EDT) Ammonia 28 11 - 35 mcmol/L LAB CHEMISTRY METHOD 05/15/2025 10:41 AM EDT [facility] Blood Blood sample taken from central line / Unknown Venipuncture / Unknown 05/15/2025 9:51 AM EDT 05/15/2025 10:18 AM EDT us Mello Mistry DO LAB BLOOD ORDERABLES Final R esult Performing Organization Address [facility] Co de Phone Number [facility] [address] [place] [address], [place] [phone] * XR Chest 1 View (05/15/2025 5:25 [...] Signed Date: 05/15/2025 06:34 ET Workstation ID: [id number] Transcribed By: Self Edit Transcribed Date: 05/15/2025 [...] Signed Date: 05/15/2025 06:34 ET Workstation ID: [id number] Transcribed By: Self Edit Transcribed Date: 05/15/2025 06:32 ET us Mello Mistry DO IMG XR PROCEDURES Final Resu lt * (ABNORMAL) Culture sputum (05/14/2025 10:06 AM EDT) Culture, Sputum Haemophilus parainfluenzae(A) 05/17/2025 2:21 PM EDT [facility] Comment: The organism value for this result has been updated. These results have been appended to the previously preliminary verified report. Beta Lactamase Negative 05/17/2025 2:21 PM EDT [facility] Gram Stain Result Many Polymorphonuclear leukocytes(A) 05/17/2025 2:21 PM EDT [facility] Gram Stain Result No epithelial cells seen(A) 05/17/2025 2:21 PM EDT [facility] Gram Stain Result Moderate Gram positive cocci in clusters(A) 05/17/2025 2:21 PM EDT [facility] Gram Stain Result Moderate Gram positive cocci in pairs and chains(A) 05/17/2025 2:21 PM EDT [facility] Gram Stain Result Few Gram positive bacilli(A) 05/17/2025 2:21 PM EDT [facility] Sputum, aspirated Lung structure / Unknown Non-blood Collection / Unknown 05/14/2025 10:06 AM EDT 05/14/2025 10:19 AM EDT us Mello Mistry DO LAB MICROBIOLOGY - GENERAL O RDERABLES Final Result [facility] [address] [place] [address], [place] [phone] * Lactate, with reflex (05/13/2025 4:52 PM EDT) Only the most recent of2 resultswithin the time period is included. LACTIC ACID 1.8 0.4 - 2.0 mmol/L LAB CHEMISTRY METHOD 05/13/2025 5:55 PM EDT [facility] Blood Venous blood specimen / Unknown Venipuncture / Unknown 05/13/2025 4:52 PM EDT 05/13/2025 5:24 PM EDT us Cherri Garduno DO LAB BLOOD ORDERABLES Final Re sult Performing Organization Address [facility]/ZIP Co de Phone Number [facility] [address] [place] [address], * Protime-INR (05/13/2025 4:52 PM EDT) [facility] Protime 12.0 10.6 - 13.9 sec LAB COAGULATION METHOD 05/13/2025 5:36 PM EDT [facility] INR 1.0 LAB COAGULATION METHOD 05/13/2025 5:36 PM EDT [facility] Blood Venous blood specimen / Unknown Venipuncture / Unknown 05/13/2025 4:52 PM EDT 05/13/2025 5:24 PM EDT us Cherri Garduno DO LAB BLOOD ORDERABLES Final Re sult Performing Organization Address [facility] Co de Phone Number [facility] [address] [place] [address], [place] [phone] * MRSA molecular study (05/13/2025 4:34 PM EDT) [facility] MRSA Screen PCR Not Detected Not Detected LAB MICROBIOLOGY METHOD 05/13/2025 6:08 PM EDT [facility] Swab Both anterior nares / Unknown Non-blood Collection / Unknown 05/13/2025 4:34 PM EDT 05/13/2025 4:48 PM EDT us Mello Mistry DO LAB MICROBIOLOGY - GENERAL O RDERABLES Final Result Performing Organization Address [facility]/ZIP Co de Phone Number [facility] [address] [place] [address], [place] [phone] * (ABNORMAL) Drug abuse screen 8a panel, urine (05/13/2025 2:51 PM EDT) [facility] Amphetamine Screen, Ur Negative Negative LAB CHEMISTRY METHOD 09/18/202 5 4:34 PM EDT [facility] Comment:Certain OTC medicati ons containing ephedrine, phenylephrine, pseudoephedrine and phenylpropanolamine can cause false positive results. Barbiturate Screen, Ur Negative Negative LAB CHEMISTRY METHOD 5 4:34 PM EDT [facility] Benzodiazepine Screen, Ur Negative Negative LAB CHEMISTRY METHOD 5 4:34 PM EDT [facility] Cocaine Screen, Ur Negative Negative LAB CHEMISTRY METHOD 5 4:34 PM EDT [facility] Opiate Screen, Ur Negative Negative LAB CHEMISTRY METHOD 5 4:34 PM [facility] Cannabinoid (THC) Screen, Ur Positive(A ) Negative LAB CHEMISTRY METHOD 5 4:34 PM [facility] Comment:Specimens from patie nts taking pantoprazole sodium (Protonix) have been shown to produce false positive results. Oxycodone Screen, Ur Negative Negative LAB CHEMISTRY METHOD 5 4:34 PM [facility] Fentanyl, Ur Negative Negative LAB CHEMISTRY METHOD 5 4:34 PM [facility] Urine Urine specimen obtained by clean catch procedure / Unknown Non-blood Collection / Unknown 05/13/2025 2:51 PM EDT 05/13/2025 4:04 PM EDT Narrative [facility] - 05/13/2025 4:34 PM EDT Assay cutoffs: Amphetamines 1000 ng/mL Barbiturates 200 ng/mL Benzodiazepines 200 ng/mL Cocaine 300 ng/mL Fentanyl 1 ng/mL Opiates 300 ng/mL Oxycodone 100 ng/mL THC 50 ng/mL Semi-quantitative assay for screening purposes only. Unconfirmed screening result should not be used for non-medical purposes. *ALTERNATE METHOD CONFIRMATION DONE UPON REQUEST ONLY* us Mello Mistry DO LAB URINE ORDERABLES Final R esult [facility] [address] [place] [address], [place] [phone] * Legionella antigen urine, EIA (05/13/2025 2:51 PM EDT) Pathologist [facility] Legionella Antigen, Ur Negative Negative 05/13/2025 4:44 PM EDT [facility] Urine Urine specimen obtained by clean catch procedure / Unknown Non-blood Collection / Unknown 05/13/2025 2:51 PM EDT 05/13/2025 4:04 PM EDT Narrative [facility] - 05/13/2025 4:44 PM EDT Negative for Legionella pneumophilia serogroup 1 antigen. This presumptive result suggests no current or recent infection due to L. pneumophilia serogroup 1. Culture is recommended if Legionella infection is till suspected, as other serogroups and species of Legionella are not detected by this test. Mello Mistry DO LAB URINE ORDERABLES Final R esult Performing Organization Address [facility] de Phone Number [facility] [address] [place] [address], [place] [phone] * Thyroid stimulating hormone with reflex to free t4 and free t3 (05/13/2025 1:51 PM EDT) Pathologist [facility] TSH 2.64 0.40 - 4.00 mcIU/mL LAB CHEMISTRY METHOD 05/13/2025 3:07 PM EDT [facility] Blood Venous blood specimen / Unknown Venipuncture / Unknown 05/13/2025 1:51 PM EDT 05/13/2025 1:59 PM EDT Mello Mistry LAB BLOOD ORDERABLES Final R esult Performing Organization Address City/[facility]/ZIP Co de Phone Number [facility] [address] [place] [address], [place] [phone] * Culture blood (05/13/2025 1:51 PM EDT) Only the most recent of2 resultswithin the time period is included. [facility] Culture, Blood No growth at 5 days LAB MICROBIOLOGY METHOD 05/18/2025 3:01 PM EDT [facility] Blood Venous blood specimen / Unknown Venipuncture / Unknown 05/13/2025 1:51 PM EDT 05/13/2025 2:00 PM EDT [facility] LAB MICROBIOLOGY - GENERAL OR DERABLES Final Result [facility] [address] [place] [address], [place] [phone] * Triglyceride Monitoring (05/13/2025 1:51 PM EDT) [facility] Triglycerides 132 0 - 150 mg/dL LAB CHEMISTRY METHOD 05/13/2025 2:26 PM EDT [facility] Blood Venous blood specimen / Unknown Venipuncture / Unknown 05/13/2025 1:51 PM EDT 05/13/2025 1:59 PM EDT [facility] LAB BLOOD ORDERABLES Final Re sult Performing Organization Address City/[facility]/ZIP Co de Phone Number [facility] [address] [place] [address], [place] [phone] * (ABNORMAL) Respiratory virus panel molecular study (05/13/2025 1:46 PM EDT) [facility] Adenovirus Detection by PCR Not Detected Not Detected LAB MICROBIOLOGY METHOD 05/13/2025 2:59 PM EDT [facility] Influenza A PCR Not Detected Not Detected LAB MICROBIOLOGY METHOD 05/13/2025 2:59 PM EDT [facility] Influenza B PCR Not Detected Not Detected LAB MICROBIOLOGY METHOD 05/13/2025 2:59 PM EDT [facility] Coronavirus 229E Not Detected Not Detected LAB MICROBIOLOGY METHOD 05/13/2025 2:59 PM EDT [facility] Coronavirus HKU1 Not Detected Not Detected LAB MICROBIOLOGY METHOD 05/13/2025 2:59 PM EDT [facility] Coronavirus OC43 Not Detected Not Detected LAB MICROBIOLOGY METHOD 05/13/2025 2:59 PM EDT [facility] Coronavirus NL63 Not Detected Not Detected LAB MICROBIOLOGY METHOD 05/13/2025 2:59 PM EDT [facility] Parainfluenza Virus 1 Not Detected Not Detected LAB MICROBIOLOGY METHOD 05/13/2025 2:59 PM EDT [facility] Parainfluenza Virus 2 Not Detected Not Detected LAB MICROBIOLOGY METHOD 05/13/2025 2:59 PM EDT [facility] Parainfluenza Virus 3 Not Detected Not Detected LAB MICROBIOLOGY METHOD 05/13/2025 2:59 PM EDT [facility] Parainfluenza Virus 4 Not Detected Not Detected LAB MICROBIOLOGY METHOD 05/13/2025 2:59 PM EDT [facility] RSV PCR Not Detected Not Detected LAB MICROBIOLOGY METHOD 05/13/2025 2:59 PM EDT [facility] Human Metapneumovirus A and B Not Detected Not Detected LAB MICROBIOLOGY METHOD 05/13/2025 2:59 PM EDT [facility] Rhinovirus/Entero virus Detected(A ) Not Detected LAB MICROBIOLOGY METHOD 05/13/2025 2:59 PM EDT [facility] Bordetella pertussis Not Detected Not Detected LAB MICROBIOLOGY METHOD 05/13/2025 2:59 PM EDT [facility] Bordetella parapertussis Not Detected Not Detected LAB MICROBIOLOGY METHOD 05/13/2025 2:59 PM EDT [facility] Mycoplasma pneumo by PCR Not Detected Not Detected LAB MICROBIOLOGY METHOD 05/13/2025 2:59 PM EDT [facility] Chlamydia pneumoniae Not Detected Not Detected LAB MICROBIOLOGY METHOD 05/13/2025 2:59 PM EDT [facility] SARS COV-2 Not Detected Not Detected LAB MICROBIOLOGY METHOD 05/13/2025 2:59 PM EDT [facility] Swab Both anterior nares / Unknown Non-blood Collection / Unknown 05/13/2025 1:46 PM EDT 05/13/2025 2:00 PM EDT [facility] - 05/13/2025 2:59 PM EDT Testing was performed using the [employer] Respiratory Pathogen PCR Assay. All results must [...] that are below the limit of detection. Cherri NAVA MICROBIOLOGY - GENERAL OR DERABLES Final Result [facility] [address] [place] [address], * Troponin I high sensitivity (05/13/2025 1:46 PM EDT) [facility] High Sensitivity Troponin I 12 <=79 ng/L LAB CHEMISTRY METHOD 05/13/2025 2:25 PM EDT [facility] Blood Venous blood specimen / Unknown Venipuncture / Unknown 05/13/2025 1:46 PM EDT 05/13/2025 2:01 PM EDT [facility] - 05/13/2025 2:25 PM EDT High levels of biotin in samples may falsely decrease hsTroponin values. Use caution when interpreting hsTroponin results in patients taking biotin who exhibit renal impairment (eGFR <60) or in patients taking more than 20 mg/day of biotin. us Cherri Garduno DO LAB BLOOD ORDERABLES Final Re sult Performing Organization Address [facility]/ZIP Co de Phone Number [facility] [address], [place] [id number], [place] [phone] * (ABNORMAL) Arterial blood gas (05/13/2025 1:37 PM EDT) pH, Arterial 7.42 7.35 - 7.45 pH 05/13/2025 2:36 PM EDT [facility] pCO2, Arterial 44 35 - 45 mmHg 05/13/2025 2:36 PM EDT [facility] pO2, Arterial 82 80 - 100 mmHg 05/13/2025 2:36 PM EDT [facility] HCO3, Arterial 27.5(H) 22.0 - 26.0 mmol/L 05/13/2025 2:36 PM EDT [facility] O2 Sat, Arterial 97.9 95.0 - 98.0 % 05/13/2025 2:36 PM EDT [facility] Base Excess, Arterial 3.4(H) -2.0 - 2.0 mmol/L 05/13/2025 2:36 PM EDT [facility] [place] Test Pass Pass, Unresponsi ve, Line 05/13/2025 2:36 PM EDT [facility] FIO2 35.00 05/13/2025 2:36 PM EDT [facility] Blood Arterial blood specimen / Unknown Arterial Puncture / Unknown 05/13/2025 1:37 PM EDT 05/13/2025 1:47 PM EDT [facility] LAB BLOOD ORDERABLES Final Re sult [facility] [address] [place] [address], [place] [phone] * (ABNORMAL) Comprehensive metabolic panel (05/13/2025 1:13 PM EDT) Sodium 137 133 - 145 mmol/L LAB CHEMISTRY METHOD 05/13/2025 2:20 PM [facility] Potassium 4.1 3.5 - 5.5 mmol/L LAB CHEMISTRY METHOD 05/13/2025 2:20 PM [facility] Comment:Hemolysis present Chloride 103 96 - 110 mmol/L LAB CHEMISTRY METHOD 05/13/2025 2:20 PM [facility] CO2 24 21 - 32 mmol/L LAB CHEMISTRY METHOD 05/13/2025 2:20 PM [facility] Anion Gap 10 3 - 11 LAB CHEMISTRY METHOD 05/13/2025 2:20 PM [facility] Glucose 167(H) 70 - 100 mg/dL LAB CHEMISTRY METHOD 05/13/2025 2:20 PM [facility] BUN 14 5 - 25 mg/dL LAB CHEMISTRY METHOD 05/13/2025 2:20 PM [facility] Creatinine 1.12 0.70 - 1.30 mg/dL LAB CHEMISTRY METHOD 05/13/2025 2:20 PM [facility] eGFR 81 >=60 mL/min/1. 73m2 LAB CHEMISTRY METHOD 05/13/2025 2:20 PM [facility] Comment:Calculation based on the Chronic Kidney Disease Epidemiology Collaboration (CKD-EPI) equation refit without adjustment for race. BUN/Creatinine Ratio 12.5 LAB CHEMISTRY METHOD 05/13/2025 2:20 PM [facility] Calcium 10.4 8.5 - 10.5 mg/dL LAB CHEMISTRY METHOD 05/13/2025 2:20 PM [facility] AST (SGOT) 32 10 - 42 unit/L LAB CHEMISTRY METHOD 05/13/2025 2:20 PM [facility] Comment:Hemolysis present ALT (SGPT) 39 10 - 60 unit/L LAB CHEMISTRY METHOD 05/13/2025 2:20 PM EDT [facility] Alkaline Phosphatase 93 42 - 121 unit/L LAB CHEMISTRY METHOD 05/13/2025 2:20 PM EDT [facility] Total Protein 8.7(H) 6.0 - 8.0 g/dL LAB CHEMISTRY METHOD 05/13/2025 2:20 PM EDT [facility] Albumin 4.9 3.2 - 5.0 g/dL LAB CHEMISTRY METHOD 05/13/2025 2:20 PM EDT [facility] Total Bilirubin 0.8 0.0 - 1.4 mg/dL LAB CHEMISTRY METHOD 05/13/2025 2:20 PM EDT [facility] Blood Venous blood specimen / Unknown Venipuncture / Unknown 05/13/2025 1:13 PM EDT 05/13/2025 1:47 PM EDT Deneen Friedman MD LAB BLOOD ORDERABLES Final Resul t [facility] [address] [place] [address], * [place] [facility] 30-74 MINUTES (05/13/2025 12:54 PM [...] Result from Last 3 Months Insurance MEDICARE [employer] MEDICARE Member Subscriber Plan / Payer (Ef fective 2024-Present) Name:SHARAN BARTON Relation to Subscriber:Self Name:Sharan Barton Payer ID:[id number] Group ID:[id number] Type:Not on file Address: [address] [place] [id number] Advance Directives Documents on File Type Date Recorded Patient Mail Sorter Expl anation Advance Directives and Living Will [...] Agents on File Name Relationship Healthcare Agent [facility] Care 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
== END 2025-07-14 09:54 | disposition home or self-care (01) ==
PROVIDERS: PCP Nurse Practitioner Family; Visit Provider Nurse Practitioner Family
DX: I15.2 Hypertension secondary to endocrine disorders (principal); E11.69 Type 2 diabetes mellitus with other specified complication; Z79.4 Long term (current) use of insulin; E84.9 Cystic fibrosis, unspecified

== ENCOUNTER → 2025-07-14 08:56 | Outpatient (BNVA) | payer OTHER, SELFPAY | PROVIDERS: PCP Nurse Practitioner Family; Visit Provider Nurse Practitioner Family | DX: I15.2 Hypertension secondary to endocrine disorders (principal); E11.69 Type 2 diabetes mellitus with other specified complication; E84.9 Cystic fibrosis, unspecified; Z79.4 Long term (current) use of insulin | CPT/HCPCS: 96127; 99212 ==